=== PATIENT | female | born 1960 | race Caucasian/White ===

== ENCOUNTER 2018-01-04 15:21 | Inpatient (IN) ==
--- NOTE | 2018-01-04 16:13 | ED ---
HPI General Chief Complaint: Shortness of Breath/Dyspnea Stated Complaint: Evac/Sob Time Seen by Provider: 01/04/18 15:31 Source: patient Mode of arrival: EMS Limitations: no limitations History of Present Illness Patient is a 57 year old female with history of hypertension and breast cancer, presents to the ER with c/o of shortness of breath. Patient reports that she has been feeling short of breath for the past 3-4 weeks. Reports that she is getting progressively sob - it is getting to the point where she cannot lay flat in her bed and needs to sit up to be able to breathe. Reports that she does have a heavyness to her chest only when she lies down in bed flat. Reports that over the past few days, she has had increased swelling to her lower extremities b/l. She does have history of PE - she was diagnosed with PE after she had breast reconstruction surgery and was on anticoagulation for only 3 months. Patient with no fever/chills. She did have radiation as well as chemo in 2013 - currently not on any chemo/radiation Related Data Home Medications Medication Instructions Recorded Confirmed anastrozole 1 mg PO DAILY 01/04/18 01/04/18 lisinopril 40 mg PO DAILY 01/04/18 01/04/18 Allergies Allergy/AdvReac Type Severity Reaction Status Date / Time No Known Allergies Allergy Unverified 01/04/18 15:36 Review of Systems ROS: all other systems reviewed are negative [facility] Medical History Medical History Breast cancer (Acute) Hypertension (Acute) Pulmonary embolism (Acute) Surgical History Surgical History H/O mastectomy (Acute) History of removal of Port-a-Cath (Acute) Social History Social History Substance History: No History of Abuse Second Hand Smoke Exposure: No Smoking Status: Never smoker How Often Do You Have a Drink Containing Alcohol: Never Recent Travel in [facility] within the Last 8 Weeks: No Recent Out of Country Travel within the Last 8 Weeks: No Immunization History Tetanus Immunization: <5 Years Hx Influenza Vaccine This Season: No Exam Narrative Exam Narrative: GENERAL: mild distress SKIN: Focused skin assessment warm/dry. HEAD: Atraumatic. Normocephalic. EYES: Pupils equal and round. No scleral icterus. No injection or drainage. ENT: No nasal bleeding or discharge. Mucous membranes pink and moist. NECK: Trachea midline. No JVD. CARDIOVASCULAR: Regular rate and rhythm. No murmur appreciated. RESPIRATORY: No accessory muscle use. Clear to auscultation. Breath sounds equal bilaterally. GASTROINTESTINAL: Abdomen soft, non-tender, nondistended. Hepatic and splenic margins not palpable. MUSCULOSKELETAL: No obvious deformities. No clubbing. No cyanosis. nonpitting edema. NEUROLOGICAL: Awake and alert. No obvious cranial nerve deficits. Motor grossly within normal limits. Normal speech. PSYCHIATRIC: Appropriate mood and affect; insight and judgment normal. Course Initial Documented Vital Signs Temperature 97.6 F 01/04/18 15:32 Pulse Rate 111 H 01/04/18 15:32 Respiratory Rate 18 01/04/18 15:32 Blood Pressure 179/102 H 01/04/18 15:32 Pulse Oximetry 97 01/04/18 15:32 Last Documented Vital Signs Temperature 97.6 F 01/04/18 15:32 Pulse Rate 98 H 01/04/18 18:36 Respiratory Rate 16 01/04/18 18:36 Blood Pressure 169/85 H 01/04/18 18:36 Pulse Oximetry 98 01/04/18 18:36 Sign Out Sign Out Data: Patient Sign Out occurred on 01/04/18 at 19:14. Patient's care was discussed, and care was transferred from Leatha Arambula to Alyse Soliman MD. Sign Out Comment: patient pending cta as well as second set of trop - if cta neg , plan for discharge to home with outpatient follow up with pcp Last updated by Leatha Arambula at 01/04/18 18:54 Post-Handoff Eval: The patient's case was checked out to me by Dr. Arambula. CTA showed evidence of pulmonary edema with bilateral pleural effusions and mild to moderate cardiomegaly with an elevated BNP. No evidence of pulmonary embolism. The patient was given aspirin 324 mg p.o. 1, nitroglycerin 1 inch the chest wall, Lasix [address] Arambula spoke to Dr. Love, the hospitalist regarding this patient's case. [facility] Medical Decision Making MDM Narrative Medical decision making narrative: During the course of the patients emergency department visit, the patients history, examination, and differential diagnosis were reviewed with the patient. The patient was placed on a surveillance monitor with oximetry and frequent blood pressure monitoring. The patient had an IV access obtained and blood work sent for analysis. labs were reviewed xray of chest: with no acute abnormality or significant interval change doppler us of le: no evidence of DVT CTA pending Medical Screen Exam Complete: Yes Emergency Medical Condition: Yes Differential Diagnosis Differential Diagnosis: PE, CHF, DVT, ACS, Arrythmia Medical Records Medical records reviewed: Yes I reviewed the patient's medical records. Lab Data Result diagrams: 01/04/18 16:35 01/04/18 16:35 Lab Results 01/04/18 01/04/18 01/04/18 Range/Units 16:35 16:35 16:35 WBC 9.7 (4.0-11.0) th/mm3 RBC 5.28 (4.00-5.30) mil/mm3 Hgb 16.1 H (11.6-15.3) gm/dL Hct 48.1 H (35.0-46.0) % MCV 91.1 (80.0-100.0) fL MCH 30.6 (27.0-34.0) pg MCHC 33.5 (32.0-36.0) % RDW 17.2 (11.6-17.2) % Plt Count 167 (150-450) th/mm3 MPV 10.3 (7.0-11.0) fL Neut % (Auto) 66.4 (16.0-70.0) % Lymph % (Auto) 25.2 (9.0-44.0) % [place] % (Auto) 6.5 (0.0-8.0) % Eos % (Auto) 1.5 (0.0-4.0) % Baso % (Auto) 0.4 (0.0-2.0) % Neut # (Auto) 6.4 (1.8-7.7) th/mm3 Lymph # (Auto) 2.4 (1.0-4.8) th/mm3 [place] # (Auto) 0.6 (0.0-0.9) th/mm3 Eos # (Auto) 0.1 (0.0-0.4) th/mm3 Baso # (Auto) 0.0 (0.0-0.2) th/mm3 WBC Differential . Differential Comment Auto diff final PT 11.7 H (9.8-11.6) sec INR 1.2 Ratio APTT 23.3 L (24.3-30.1) sec Sodium 142 (136-145) meq/L Potassium 4.6 (3.5-5.1) meq/L Chloride 108 H (98-107) meq/L Carbon Dioxide 23.3 (21.0-32.0) meq/L Anion Gap 11 (5-15) meq/L BUN 16 (7-18) mg/dL Creatinine 0.89 (0.50-1.00) mg/dL Estimated GFR 66 L (>89) mL/min Random Glucose 84 (74-106) mg/dL Calcium 8.6 (8.5-10.1) mg/dL Magnesium 2.3 (1.5-2.5) mg/dL Total Bilirubin 1.0 (0.2-1.0) mg/dL AST 63 H (15-37) U/L ALT 60 H (10-53) U/L Alkaline Phosphatase 112 (45-117) U/L Total Creatine Kinase 120 (26-192) U/L CK-MB (CK-2) 1.8 (0.5-3.6) ng/mL Troponin I Less than 0.02 L (0.02-0.05) ng/mL B-Natriuretic Peptide (0-100) pg/mL Total Protein 6.9 (6.4-8.2) g/dL Albumin 3.9 (3.4-5.0) g/dL 01/04/18 Range/Units 16:35 WBC (4.0-11.0) th/mm3 RBC (4.00-5.30) mil/mm3 Hgb (11.6-15.3) gm/dL Hct (35.0-46.0) % MCV (80.0-100.0) fL MCH (27.0-34.0) pg MCHC (32.0-36.0) % RDW (11.6-17.2) % Plt Count (150-450) th/mm3 MPV (7.0-11.0) fL Neut % (Auto) (16.0-70.0) % Lymph % (Auto) (9.0-44.0) % [place] % (Auto) (0.0-8.0) % Eos % (Auto) (0.0-4.0) % Baso % (Auto) (0.0-2.0) % Neut # (Auto) (1.8-7.7) th/mm3 Lymph # (Auto) (1.0-4.8) th/mm3 [place] # (Auto) (0.0-0.9) th/mm3 Eos # (Auto) (0.0-0.4) th/mm3 Baso # (Auto) (0.0-0.2) th/mm3 WBC Differential Differential Comment PT (9.8-11.6) sec INR Ratio APTT (24.3-30.1) sec Sodium (136-145) meq/L Potassium (3.5-5.1) meq/L Chloride (98-107) meq/L Carbon Dioxide (21.0-32.0) meq/L Anion Gap (5-15) meq/L BUN (7-18) mg/dL Creatinine (0.50-1.00) mg/dL Estimated GFR (>89) mL/min Random Glucose (74-106) mg/dL Calcium (8.5-10.1) mg/dL Magnesium (1.5-2.5) mg/dL Total Bilirubin (0.2-1.0) mg/dL AST (15-37) U/L ALT (10-53) U/L Alkaline Phosphatase (45-117) U/L Total Creatine Kinase (26-192) U/L CK-MB (CK-2) (0.5-3.6) ng/mL Troponin I (0.02-0.05) ng/mL B-Natriuretic Peptide 930 H (0-100) pg/mL Total Protein (6.4-8.2) g/dL Albumin (3.4-5.0) g/dL Imaging Data Radiologist's impression: Chest CTA 01/04/18 15:55 CONCLUSION: 1. No evidence of pulmonary emboli. 2. Bilateral pleural effusions and mild to moderate cardiomegaly. Chest X-Ray 01/04/18 15:55 CONCLUSION: 1. No acute abnormality or significant interval change. Venous Doppler Study 01/04/18 15:56 CONCLUSION: 1. The study is negative for bilateral lower extremity deep venous thrombosis. ECG Data EKG Prior to Arrival: No Attestation: I personally reviewed and interpreted this ECG as follows: Interpretation: EKG at 1534: Sinus tach at 112bpm, qt/qtc: 339/406, nonspecific t wave changes Discharge Plan Discharge Disposition Patient Disposition: 30 Still Patient Discharge Details Diagnosis: Acute dyspnea, New onset of congestive heart failure Physicians Team ED Provider: Alyse Soliman Primary Care Provider: Maryellen Sutton Attending Provider: Conor Love Rxs /Orders / Referrals /Forms Prescriptions: No Action anastrozole 1 mg Tablet 1 mg PO DAILY RF: 0 lisinopril 40 mg Tablet 40 mg PO DAILY RF: 0 Discharge Interventions Interventions: Vital Signs Last Done: 01/04/18 18:36 Status ED Status: Admitted Observation Patient
--- NOTE | 2018-01-04 16:15 | XR ---
EXAM DATE: 01/04/2018 4:10 PM EDT AGE/SEX: 57 years / Female INDICATIONS: Short of breath, tired, cough CLINICAL DATA: This is the patient's initial encounter. Patient reports that signs and symptoms have been present for 3 days and indicates a pain score of 0/10. MEDICAL/SURGICAL HISTORY: . high blood pressure. None. COMPARISON: [facility], XR CHEST PA AND LAT, 03/10/2016. . FINDINGS: No significant new focal pleural or parenchymal opacities. Cardiomediastinal contours are stable give n differences in technique. Redemonstration of surgical clips in the axilla. Osseous structures are i ntact. CONCLUSION: 1. No acute abnormality or significant interval change. Electronically signed by: Campbell Qureshi MD 01/04/2018 4:13 PM EDT
--- NOTE | 2018-01-04 16:50 | US ---
EXAM DATE: 01/04/2018 4:37 PM EDT AGE/SEX: 57 years / Female INDICATIONS: Bilateral leg swelling. CLINICAL DATA: This is the patient's initial encounter. Patient reports that signs and symptoms have been present for 3 days and indicates a pain score of 5/10. MEDICAL/SURGICAL HISTORY: Carcinoma, breast. Hypertension. Pulmonary embolism. Mastectomy, b ilateral. Removal of port-a-cath. COMPARISON: No prior exams available for comparison. TECHNIQUE: Venous ultrasound of both lower extremities was performed from the inguinal ligament to t he proximal calf. Real-time, color Doppler and spectral tracing, compression and augmentation techni ques were used. FINDINGS: Right Leg: Normal compression of the deep venous system from the inguinal region to the proximal donal f. No echogenic clot is seen. Normal response of the venous system to augmentation and respiration. Left Leg: Normal compression of the deep venous system from the inguinal region to the proximal calf . No echogenic clot is seen. Normal response of the venous system to augmentation and respiration. Other: None. CONCLUSION: 1. The study is negative for bilateral lower extremity deep venous thrombosis. Electronically signed by: Campbell Qureshi MD 01/04/2018 4:48 PM EDT
[2018-01-04 17:07] LABS: Baso % (Auto) 0.4 % (0.0-2.0); Eos # (Auto) 0.1 th/mm3 (0.0-0.4); Eos % (Auto) 1.5 % (0.0-4.0); Hematocrit 48.1 % (35.0-46.0); Hemoglobin 16.1 gm/dL (11.6-15.3); Lymph # (Auto) 2.4 th/mm3 (1.0-4.8); Lymph % (Auto) 25.2 % (9.0-44.0); Mean Corpuscular HGB Conc 33.5 % (32.0-36.0); Mean Corpuscular Hemoglobin 30.6 pg (27.0-34.0); Mean Corpuscular Volume 91.1 fL (80.0-100.0); Mean Platelet Volume 10.3 fL (7.0-11.0); Mono # (Auto) 0.6 th/mm3 (0.0-0.9); Mono % (Auto) 6.5 % (0.0-8.0); Neut # (Auto) 6.4 th/mm3 (1.8-7.7); Neut % (Auto) 66.4 % (16.0-70.0); Platelet Count 167 th/mm3 (150-450); Red Blood Count 5.28 mil/mm3 (4.00-5.30); Red Cell Distribution Width 17.2 % (11.6-17.2); White Blood Count 9.7 th/mm3 (4.0-11.0)
[2018-01-04 17:12] LABS: Activated Partial Thrombo Time 23.3 sec (24.3-30.1); INR 1.2 Ratio; Prothrombin Time 11.7 sec (9.8-11.6)
[2018-01-04 17:37] LABS: Alanine Aminotransferase 60 U/L (10-53); Albumin 3.9 g/dL (3.4-5.0); Alkaline Phosphatase 112 U/L (45-117); Anion Gap 11 meq/L (5-15); Aspartate Aminotransferase 63 U/L (15-37); Blood Urea Nitrogen 16 mg/dL (7-18); Calcium 8.6 mg/dL (8.5-10.1); Carbon Dioxide 23.3 meq/L (21.0-32.0); Chloride 108 meq/L (98-107); Creatine Kinase 120 U/L (26-192); Glomerular Filtration Rate 66 mL/min (>89); Glucose,Random 84 mg/dL (74-106); Magnesium 2.3 mg/dL (1.5-2.5); Sodium 142 meq/L (136-145); Total Protein 6.9 g/dL (6.4-8.2)
[2018-01-04 17:40] LABS: Potassium 4.6 meq/L (3.5-5.1)
[2018-01-04 17:52] LABS: Creatine Kinase MB 1.8 ng/mL (0.5-3.6)
--- NOTE | 2018-01-04 19:05 | CT ---
EXAM DATE: 01/04/2018 7:00 PM EDT AGE/SEX: 57 years / Female INDICATIONS: Short of breath for four days and leg swelling CLINICAL DATA: This is the patient's initial encounter. Patient reports that signs and symptoms have been present for 1 day and indicates a pain score of 0/10. MEDICAL/SURGICAL HISTORY: Carcinoma, breast. Hypertension. . mastectomy RADIATION DOSE: 23.20 CTDI (mGy) COMPARISON: [facility] [place], CHEST 1V SINGLE AP, 01/04/2018. . TECHNIQUE: Volumetric scanning was performed using a multi-row detector CT scanner during bolus infu tito of 72 ml Omnipaque 350 (iohexol) nonionic water-soluble contrast as a single exam dose. The brigette a was post processed with a variety of visualization algorithms including full volume maximum intensi ty projection and sliding thin slab reformation. Using automated exposure control and adjustment of t he mA and/or kV according to patient size, radiation dose was kept as low as reasonably achievable to obtain optimal diagnostic quality images. DICOM format image data is available electronically for r eview and comparison. FINDINGS: Pulmonary Arteries: No filling defects are seen in the pulmonary arteries out to the subsegmental ve ssels. The left and right pulmonary arteries are normal in diameter. Lung: No infiltrates seen. Effusion: There are bilateral pleural effusions right greater than left. Mediastinum: No evidence of mediastinal or hilar adenopathy. There is mild to moderate cardiomegaly. Atherosclerotic changes are present in the aorta. Other: The axilla is unremarkable. CONCLUSION: 1. No evidence of pulmonary emboli. 2. Bilateral pleural effusions and mild to moderate cardiomegaly. Electronically signed by: Zander Mena MD 01/04/2018 7:04 PM EDT
[2018-01-04] MEDS ORDERED: Temazepam 15 MG Capsule PO PRN (19:54)
--- NOTE | 2018-01-04 20:29 | P.HPIM ---
History of Present Illness Primary Care Physician: Maryellen Sutton MD Chief Complaint: dyspnea History of Present Illness: 57 y/o female with a history of breast cancer s/p chemo and radiation, and HTN presented to the ED with complaints of dyspnea for the past 3-4 weeks. She complains of orthopnea, and dyspnea with exertion, and states she is unable to climb a flight of stairs. She states it has been getting worse and the past 3 days she has noticed bilateral pedal edema. She does have a non productive cough and chest pressure when she lays flat. Denies any fever, chills or dizziness. Last chemo/radiation was in 2013. Review of Systems All other systems reviewed negative except as stated in HPI PMFSH - History History Provided By: Patient - Medical History Medical History: Medical History (Last Updated 01/04/18 @ 16:20 by Leatha Arambula) Breast cancer Hypertension Pulmonary embolism - Surgical History Surgical History: Surgical History (Last Reviewed 01/04/18 @ 16:20 by Leatha Arambula) H/O mastectomy History of removal of Port-a-Cath - Family History Family History: Family History (Last Updated 01/04/18 @ 20:49 by SAMIA Rojas) Mother Breast cancer HTN (hypertension) - Tobacco History Second Hand Smoke Exposure: No Smoking Status: Never smoker - Alcohol History How Often Do You Have a Drink Containing Alcohol: Never - Substance Use History Substance History: No History of Abuse - Travel History Recent Travel in the [place] Within the Last 8 Weeks: No Recent Travel Out of the Country Within the Last 8 Weeks: No - Immunization History Tetanus Immunization: <5 Years Hx Influenza Vaccine This Season: No Medications and Allergies Active Medications: Active Medications Al Hydroxide/Mg Hydroxide (Milk Of Ilana Coffman) 30 ml PO Q12H PRN PRN Reason: Mild Constipation Anastrozole (Arimidex) 1 mg PO DAILY DENIZ Furosemide (Lasix Inj) 40 mg IV.PUSH BID@0900,1800 DENIZ Heparin Sodium (Porcine) (Heparin Inj) 5,000 units SQ Q12H DENIZ Lisinopril (Prinivil) 40 mg PO DAILY DENIZ Ondansetron HCl (Zofran Inj) 4 mg IV.PUSH Q6H PRN PRN Reason: NAUSEA OR VOMITING Sodium Chloride (Ns Flush) 2 ml IV.FLUSH PRN PRN PRN Reason: FLUSH AFTER USING IV ACCESS Temazepam (Restoril) 15 mg PO HS PRN PRN Reason: INSOMNIA Allergies Allergy/AdvReac Type Severity Reaction Status Date / Time No Known Allergies Allergy Unverified 01/04/18 15:36 Home Medications Medication Instructions Recorded Confirmed Type anastrozole 1 mg PO DAILY 01/04/18 01/04/18 History lisinopril 40 mg PO DAILY 01/04/18 01/04/18 History Exam Vital signs: Vital Signs 01/04/18 15:32 01/04/18 15:37 01/04/18 18:36 Temperature 97.6 F Pulse Rate 111 H 103 H 98 H Respiratory Rate 18 19 16 Blood Pressure 179/102 H 179/102 H 169/85 H Pulse Oximetry 97 95 98 01/04/18 19:47 Temperature Pulse Rate Respiratory Rate Blood Pressure Pulse Oximetry 96 Intake & Output 01/04/18 01/04/18 01/05/18 06:59 18:59 06:59 Weight 90.718 kg Narrative: GENERAL: This is a well-nourished, well-developed patient, who appears short of breath CARDIOVASCULAR: Regular rate and rhythm with faint gallop. RESPIRATORY: Diminished breath sounds, no crackles or wheezes GASTROINTESTINAL: Abdomen soft, non-tender, nondistended. Normal active bowel sounds MUSCULOSKELETAL: Extremities without clubbing, cyanosis. +1 pedal edema bilateral lower extremities NEURO: Alert & Oriented x4 to person, place, time, situation. Moves all ext x4 Results - Labs CBC & Chem 7: 01/04/18 16:35 01/04/18 16:35 Labs: Short CBC 01/04/18 Range/Units 16:35 WBC 9.7 (4.0-11.0) th/mm3 Hgb 16.1 H (11.6-15.3) gm/dL Hct 48.1 H (35.0-46.0) % Plt Count 167 (150-450) th/mm3 BMP 01/04/18 16:35 Sodium 142 Potassium 4.6 Chloride 108 H Carbon Dioxide 23.3 BUN 16 Creatinine 0.89 Calcium 8.6 Cardiac Enzymes 01/04/18 01/04/18 Range/Units 16:35 18:50 Total Creatine Kinase 120 (26-192) U/L CK-MB (CK-2) 1.8 (0.5-3.6) ng/mL Troponin I Less than 0.02 L 0.04 (0.02-0.05) ng/mL Liver Function 01/04/18 Range/Units 16:35 Total Bilirubin 1.0 (0.2-1.0) mg/dL AST 63 H (15-37) U/L ALT 60 H (10-53) U/L Alkaline Phosphatase 112 (45-117) U/L Albumin 3.9 (3.4-5.0) g/dL - Imaging Impressions Chest CTA 01/04/18 15:55 CONCLUSION: 1. No evidence of pulmonary emboli. 2. Bilateral pleural effusions and mild to moderate cardiomegaly. Chest X-Ray 01/04/18 15:55 CONCLUSION: 1. No acute abnormality or significant interval change. Venous Doppler Study 01/04/18 15:56 CONCLUSION: 1. The study is negative for bilateral lower extremity deep venous thrombosis. Caprini VTE Risk Assessment Caprini VTE Risk Assessment: Moderate/High Risk (score >= 2) Caprini Risk Assessment Model: Point Value = 1 Point Value = 2 Point Value = 3 Point Value = 5 Age 41-60 Minor surgery BMI > 25 kg/m2 Swollen legs Varicose veins or History of unexplained or recurrent spontaneous Oral contraceptives or hormone replacement Sepsis (< 1 month) Serious lung disease, including pneumonia (< 1 month) Abnormal pulmonary function Acute myocardial infarction Congestive heart failure (< 1 month) History of inflammatory bowel disease Medical patient at bed rest Age 61-74 Arthroscopic surgery Major open surgery (> 45 min) Laparoscopic surgery (> 45 min) Malignancy Confined to bed (> 72 hours) Immobilizing plaster cast Central venous access Age >= 75 History of VTE Family history of VTE Factor V Leiden Prothrombin [id number] Lupus anticoagulant Anticardiolipin antibodies Elevated serum homocysteine Heparin-induced thrombocytopenia Other congenital or acquired thrombophilia Stroke (< 1 month) Elective arthroplasty Hip, pelvis, or leg fracture Acute spinal cord injury (< 1 month) Prophylaxis Regimen: Total Risk Factor Score Risk Level Prophylaxis Regimen 0-1 Low Early ambulation 2 Moderate Order ONE of the following: *Sequential Compression Device (SCD) *Heparin 5000 units SQ BID 3-4 Higher Order ONE of the following medications: *Heparin 5000 units SQ TID *Enoxaparin/Lovenox 40 mg SQ daily (WT < 150 kg, CrCl > 30 mL/min) *Enoxaparin/Lovenox 30 mg SQ daily (WT < 150 kg, CrCl > 10-29 mL/min) *Enoxaparin/Lovenox 30 mg SQ BID (WT < 150 kg, CrCl > 30 mL/min) AND/OR *Sequential Compression Device (SCD) 5 or more Highest Order ONE of the following medications: *Heparin 5000 units SQ TID (Preferred with Epidurals) *Enoxaparin/Lovenox 40 mg SQ daily (WT < 150 kg, CrCl > 30 mL/min) *Enoxaparin/Lovenox 30 mg SQ daily (WT < 150 kg, CrCl > 10-29 mL/min) *Enoxaparin/Lovenox 30 mg SQ BID (WT < 150 kg, CrCl > 30 mL/min) AND *Sequential Compression Device (SCD) Assessment and Plan - Plan 57 y/o female with a history of breast cancer s/p chemo and radiation, and HTN presented to the ED with complaints of dyspnea for the past 3-4 weeks. New onset CHF, patient with orthopnea and pedal edema Chest CT reviewed and shows bilateral pleural effusions with mild cardiomegaly BNP 930 -Lasix IV x 1 given in ED, Cont Lasix IV BID -2d echo ordered -Consult to cardiology for evaluation -Fluid restriction Chest pressure, likely due to CHF, r/o ACS Troponin .02-->.04 EKG reviewed and shows sinus tachycardia with no ST elevations -Trend troponin one more set and ekg -Nitropaste and asa ordered in ED HTN, chronic -Resume home medications lisinopril, monitor vitals, adjust accordingly Breast cancer, chronic, in remission -Resume home anastrozole PO DVT prophylaxis: Heparin Discussed Condition With: Patient and RN
--- NOTE | 2018-01-04 20:59 | ECG ---
Date Performed: 01/04/2018 Time Performed: 15:34:14 PTAGE: 57 years EKG: SINUS TACHYCARDIA POSSIBLE LEFT ATRIAL ENLARGEMENT NONSPECIFIC T-WAVE ABNORMALITY ABNORMAL RHYTHM ECG NO PREVIOUS TRACING DOCTOR: Christopher Barrera Interpretating Date/Time 01/04/2018 20:57:25
[2018-01-04] MEDS: Heparin - SQ 10,000 UNITS/ML Vial SQ SCH (21:29)
--- NOTE | 2018-01-05 08:41 | ECG ---
Date Performed: 01/05/2018 Time Performed: 01:14:56 PTAGE: 57 years EKG: Sinus rhythm POSSIBLE LEFT ATRIAL ENLARGEMENT T-WAVE ABNORMALITY, CONSIDER INFERIOR AND LATERAL ISCHEMIA ABNORMAL ECG PREVIOUS TRACING : 01/04/2018 15.34 Compared to previous tracing, inferior and lateral T wave c hanges are now more pronounced. DOCTOR: Christopher Barrera Interpretating Date/Time 01/05/2018 08:40:24
[2018-01-05] MEDS: Heparin - SQ 10,000 UNITS/ML Vial SQ SCH ×2 (09:07→20:09)
[2018-01-05] MEDS: Anastrozole 1 MG Tablet PO SCH (09:07)
[2018-01-05] MEDS: Lisinopril 20 MG Tablet PO SCH (09:08)
--- NOTE | 2018-01-05 15:18 | P.PNIM ---
Subjective Interval history: 57 y/o female with a history of breast cancer s/p chemo and radiation, and HTN presented to the ED with complaints of dyspnea for the past 3-4 weeks. She complains of orthopnea, and dyspnea with exertion, and states she is unable to climb a flight of stairs. She states it has been getting worse and the past 3 days she has noticed bilateral pedal edema. She does have a non productive cough and chest pressure when she lays flat. Denies any fever, chills or dizziness. Last chemo/radiation was in 2013. 01-05 AWAIT ECHO HAS DIURESED WELL LESS SOB LESS SWELLING IN BL LE- ALMOST NORMAL UNOFFICIAL EF NOT SO GOOD DW CARDIO AM LABS HOPEFULLY DC TO HOME TOMORROW Physical Exam Vital signs: Vital Signs 01/04/18 15:32 01/04/18 15:37 01/04/18 18:36 Temperature 97.6 F Pulse Rate 111 H 103 H 98 H Respiratory Rate 18 19 16 Blood Pressure 179/102 H 179/102 H 169/85 H Pulse Oximetry 97 95 98 01/04/18 19:47 01/04/18 20:00 01/04/18 22:00 Temperature 97.8 F Pulse Rate 91 H 90 Respiratory Rate 20 Blood Pressure 119/63 Pulse Oximetry 96 92 L 01/04/18 23:54 01/05/18 00:00 01/05/18 04:00 Temperature 97.4 F L 98.1 F Pulse Rate 80 80 86 Respiratory Rate 19 18 Blood Pressure 100/61 117/77 Pulse Oximetry 95 99 01/05/18 07:26 01/05/18 08:00 01/05/18 12:00 Temperature 97.8 F 98.1 F Pulse Rate 87 103 H 93 H Respiratory Rate 18 18 Blood Pressure 147/86 H 142/75 H Pulse Oximetry 96 96 01/05/18 12:13 Temperature Pulse Rate 85 Respiratory Rate Blood Pressure Pulse Oximetry Intake & Output 01/04/18 01/05/18 01/05/18 18:59 06:59 18:59 Weight 90.718 kg 81.6 kg Other: # Voids 2 Weight On Admission 81.6 kg Narrative: GENERAL: SKIN: Warm and dry. HEAD: Atraumatic. Normocephalic. EYES: Pupils equal and round. No scleral icterus. No injection or drainage. ENT: No nasal bleeding or discharge. Mucous membranes pink and moist. NECK: Trachea midline. No JVD. CARDIOVASCULAR: Regular rate and rhythm. S1,S2 AND NO S3 OR S4 RESPIRATORY: No accessory muscle use. Clear to auscultation. Breath sounds equal bilaterally. GASTROINTESTINAL: Abdomen soft, non-tender, nondistended. Hepatic and splenic margins not palpable. MUSCULOSKELETAL: Extremities without clubbing, cyanosis, or edema. No obvious deformities. NEUROLOGICAL: Awake and alert. No obvious cranial nerve deficits. Motor grossly within normal limits. Five out of 5 muscle strength in the arms and legs. Normal speech. PSYCHIATRIC: Appropriate mood and affect; insight and judgment normal. Results - Labs CBC & Chem 7: 01/04/18 16:35 01/04/18 16:35 Laboratory Results - last 24 hr 01/04/18 01/04/18 01/04/18 16:35 16:35 16:35 WBC 9.7 RBC 5.28 Hgb 16.1 H Hct 48.1 H MCV 91.1 MCH 30.6 MCHC 33.5 RDW 17.2 Plt Count 167 MPV 10.3 Neut % (Auto) 66.4 Lymph % (Auto) 25.2 [place] % (Auto) 6.5 Eos % (Auto) 1.5 Baso % (Auto) 0.4 Neut # (Auto) 6.4 Lymph # (Auto) 2.4 [place] # (Auto) 0.6 Eos # (Auto) 0.1 Baso # (Auto) 0.0 WBC Differential . Differential Comment Auto diff final PT 11.7 H INR 1.2 APTT 23.3 L Sodium 142 Potassium 4.6 Chloride 108 H Carbon Dioxide 23.3 Anion Gap 11 BUN 16 Creatinine 0.89 Estimated GFR 66 L Random Glucose 84 Calcium 8.6 Magnesium 2.3 Total Bilirubin 1.0 AST 63 H ALT 60 H Alkaline Phosphatase 112 Total Creatine Kinase 120 CK-MB (CK-2) 1.8 Troponin I Less than 0.02 L B-Natriuretic Peptide Total Protein 6.9 Albumin 3.9 01/04/18 01/04/18 01/05/18 16:35 18:50 01:00 WBC RBC Hgb Hct MCV MCH MCHC RDW Plt Count MPV Neut % (Auto) Lymph % (Auto) [place] % (Auto) Eos % (Auto) Baso % (Auto) Neut # (Auto) Lymph # (Auto) [place] # (Auto) Eos # (Auto) Baso # (Auto) WBC Differential Differential Comment PT INR APTT Sodium Potassium Chloride Carbon Dioxide Anion Gap BUN Creatinine Estimated GFR Random Glucose Calcium Magnesium Total Bilirubin AST ALT Alkaline Phosphatase Total Creatine Kinase CK-MB (CK-2) Troponin I 0.04 0.04 B-Natriuretic Peptide 930 H Total Protein Albumin - Imaging Impressions Chest CTA 01/04/18 15:55 CONCLUSION: 1. No evidence of pulmonary emboli. 2. Bilateral pleural effusions and mild to moderate cardiomegaly. Chest X-Ray 01/04/18 15:55 CONCLUSION: 1. No acute abnormality or significant interval change. Venous Doppler Study 01/04/18 15:56 CONCLUSION: 1. The study is negative for bilateral lower extremity deep venous thrombosis. Assessment and Plan - Plan 57 y/o female with a history of breast cancer s/p chemo and radiation, and HTN presented to the ED with complaints of dyspnea for the past 3-4 weeks. New onset CHF, patient with orthopnea and pedal edema Chest CT reviewed and shows bilateral pleural effusions with mild cardiomegaly BNP 930 -Lasix IV x 1 given in ED, Cont Lasix IV BID -2d echo ordered -Consult to cardiology for evaluation -Fluid restriction AM LABS ECHO STILL PENDING Chest pressure, likely due to CHF, r/o ACS Troponin .02-->.04 EKG reviewed and shows sinus tachycardia with no ST elevations -Trend troponin one more set and ekg -Nitropaste and asa ordered in ED HTN, chronic -Resume home medications lisinopril, monitor vitals, adjust accordingly Breast cancer, chronic, in remission -Resume home anastrozole PO DVT prophylaxis: Heparin Code Status: FULL CODE Discussed Condition With: RN AND PT AND CM Discharge Planning: PENDING ECHO
--- NOTE | 2018-01-05 18:17 | ECHRPT ---
Indication: cardiomyopathy CONCLUSIONS The left ventricular systolic function is severely reduced with an estimated ejection fraction of 30 %. Normal left ventricular size. Wall thickness is normal. No regional wall motion abnormalities are present. [id number] mitral valve regurgitation. There is moderate to severe tricuspid valve regurgitation. The estimated pulmonary arterial pressure is 64 mmHg. BP: / HR: Rhythm: Sinus MEASUREMENTS (Male / Female) Normal Values Technical Quality:Fair 2D ECHO LV Diastolic Diameter PLAX 5.6 cm 4.2 - 5.9 / 3.9 - 5.3 cm LV Systolic Diameter PLAX 4.9 cm IVS Diastolic Thickness 1.1 cm 0.6 - 1.0 / 0.6 - 0.9 cm LVPW Diastolic Thickness 1.1 cm 0.6 - 1.0 / 0.6 - 0.9 cm LV Relative Wall Thickness 0.4 RV Internal Dim ED PLAX 3.8 cm LVOT Diameter 1.6 cm LA Systolic Diameter LX 3.9 cm 3.0 - 4.0 / 2.7 - 3.8 cm LV Ejection Fraction MOD 4C 31.3 % LV Ejection Fraction 4C AL 34.1 % M-MODE Aortic Root Diameter MM 2.1 cm LA Systolic Diameter MM 3.9 cm LA Ao Ratio MM 1.9 AV Cusp Separation MM 1.7 cm DOPPLER AV Peak Velocity 74.8 cm/s AV Peak Gradient 2.2 mmHg AI Peak Velocity 118.0 cm/s AI Peak Gradient 5.6 mmHg AI Pressure Half Time 36.0 ms LVOT Peak Velocity 62.7 cm/s LVOT Peak Gradient 1.6 mmHg AV Area Cont Eq pk 1.7 cm LV E' Lateral Velocity 3.8 cm/s LV E' Septal Velocity 2.6 cm/s TV Peak Velocity 269.0 cm/s TR Peak Velocity 366.0 cm/s TR Peak Gradient 53.6 mmHg Right Atrial Pressure 10.0 mmHg Pulmonary Artery Systolic Pressu 63.6 mmHg Right Ventricular Systolic Press 63.6 mmHg PV Peak Velocity 80.1 cm/s PV Peak Gradient 2.6 mmHg FINDINGS LEFT VENTRICLE The left ventricular systolic function is severely reduced with an estimated ejection fraction of 30 %. Normal left ventricular size. Wall thickness is normal. No regional wall motion abnormalities are present. RIGHT VENTRICLE Normal right ventricular size and systolic function. LEFT ATRIUM The left atrial size is normal. RIGHT ATRIUM The right atrial size is normal. ATRIAL SEPTUM Normal atrial septal thickness without atrial level shunting by limited color doppler interrogation. AORTA The aortic root and proximal ascending aorta are normal in size on limited imaging. MITRAL VALVE Structurally normal mitral valve. [id number] mitral valve regurgitation. AORTIC VALVE Trileaflet aortic valve. No aortic valve stenosis or regurgitation. TRICUSPID VALVE Structurally normal tricuspid valve. There is moderate to severe tricuspid valve regurgitation. The estimated pulmonary arterial pressure is 63.6 mmHg. PULMONARY VALVE Trivial pulmonary valve regurgitation. VESSELS The inferior vena cava is normal in size. PERICARDIUM No pericardial effusion. Cari Drake MD, FACC (Electronically Signed) Final Date:05 January 2018 18:16
--- NOTE | 2018-01-06 01:19 | MB ---
cc: Ambrose Rivera DO DATE: 01/05/2018 REASON FOR CONSULTATION: New onset cardiomyopathy. HISTORY OF PRESENT ILLNESS: Lisa Carbajal is a pleasant 57-year-old female who presented to [facility] Emergency Room due to shortness of breath for the past 3-4 weeks. She has noticed some orthopnea and dyspnea, especially with exertion. If she climbs a flight of stairs, she gets significantly short of breath. Does not really notice much chest pain. She has also had 3-4 days of increased bilateral pedal edema. She has had a nonproductive cough and some chest pressure when she lies flat. She previously underwent chemo and radiation in 2013, for breast cancer and is currently on Arimidex. She states that when she was undergoing chemo in 2013, she had some tests, but is unsure if she had an echocardiogram. She underwent an echocardiogram today and was found to have an ejection fraction of 30% with moderate to severe mitral regurgitation and [id number] tricuspid regurgitation. She is currently hemodynamically stable without chest pain, shortness of breath, or palpitations. PAST MEDICAL HISTORY: 1. Breast cancer. 2. Hypertension. 3. Pulmonary embolism. PAST SURGICAL HISTORY: 1. Mastectomy. 2. Removal of Port-A-Cath. ALLERGIES: NO KNOWN DRUG ALLERGIES. MEDICATIONS: 1. Arimidex 1 mg daily. 2. Lisinopril 40 mg daily. FAMILY HISTORY: Denies premature coronary artery disease or sudden cardiac within the family. SOCIAL HISTORY: Denies tobacco, alcohol or drug abuse. REVIEW OF SYSTEMS: Fourteen systems were reviewed including osteopathic. Pertinent positives and negatives above, otherwise negative. PHYSICAL EXAMINATION: VITAL SIGNS: Temperature 98.1, heart rate 93, blood pressure 142/75, respirations 18, pulse oximetry 96% on room air. GENERAL: The patient appears well, in no acute distress. Alert, awake, and oriented x3. HEENT: Extraocular muscles intact. Mucous membranes moist. NECK: Supple. No JVD at 45 degrees. No carotid bruits heard bilaterally. Carotid upstroke is brisk in nature. HEART: Regular rate and rhythm. Positive first and second heart sounds with no noted murmurs, gallops or rubs. LUNGS: Have decreased breath sounds bilaterally, but no overt wheezes, rales or rhonchi. ABDOMEN: Soft, nontender, nondistended. No organomegaly noted. EXTREMITIES: Show no clubbing, cyanosis or edema. Femoral and distal pulses intact bilaterally. NEUROLOGIC: No focal deficits. SKIN: Warm, dry and intact. OSTEOPATHIC: Mild lordosis, no kyphoscoliosis or paraspinal tender points. LABORATORY DATA: Hemoglobin 16.1, hematocrit 48.1, platelets 167. Potassium 4.6, BUN 16, creatinine 0.89. Troponin negative x3. BNP 930. Electrocardiogram (01/05/2018 at 01:14): Sinus rhythm, possible left atrial enlargement, ST-T wave changes inferolaterally, possibly due to ischemia. IMPRESSION: 1. Acute decompensated systolic heart failure. 2. New cardiomyopathy. 3. History of breast cancer with radiation and chemotherapy, currently on Arimidex. 4. Hypertension. RECOMMENDATIONS: 1. Ms. Carbajal appears to have a new onset cardiomyopathy with acute decompensated heart failure. She has since been diuresed and is better compensated at this time. 2. Because of this, she will need to be ruled out for an ischemic cardiomyopathy. I discussed consideration of stress testing versus cardiac catheterization and overall feels that she should undergo a right and left heart catheterization. Risks, benefits and alternatives have been explained to her and she consented as such. 3. She is currently on Arimidex for her breast cancer. It is found to have ischemic heart disease. This will need to be discussed with her oncologist as this is a relative contraindication for Arimidex. 4. She will be started on heart failure medications including beta justin therapy and JESSICA inhibitor therapy. 5. Upon discharge, she will followup in the office with me for further considerations of repeat echocardiogram to evaluate response to medications. Thank you for allowing me to see Lisa Carbajal. For any question, please do not hesitate to call. DO ERNESTINE NavarreteP/chana , 11:29 PM , 11:40 PM
[2018-01-06 01:34] LABS: Calcium 7.2 mg/dL (8.5-10.1); Carbon Dioxide 27.6 meq/L (21.0-32.0); Magnesium 1.9 mg/dL (1.5-2.5)
[2018-01-06 01:41] LABS: Potassium 3.5 meq/L (3.5-5.1)
[2018-01-06 02:16] LABS: Total Protein 5.6 g/dL (6.4-8.2)
[2018-01-06 07:27] LABS: Baso % (Auto) 0.5 % (0.0-2.0); Eos # (Auto) 0.1 th/mm3 (0.0-0.4); Hemoglobin 15.5 gm/dL (11.6-15.3); Lymph # (Auto) 2.3 th/mm3 (1.0-4.8); Mean Corpuscular Hemoglobin 30.1 pg (27.0-34.0); Mean Corpuscular Volume 91.1 fL (80.0-100.0); Mono # (Auto) 0.6 th/mm3 (0.0-0.9); Mono % (Auto) 8.3 % (0.0-8.0); Neut % (Auto) 57.2 % (16.0-70.0); Platelet Count 145 th/mm3 (150-450); Red Blood Count 5.16 mil/mm3 (4.00-5.30); Red Cell Distribution Width 16.6 % (11.6-17.2)
[2018-01-06 07:58] LABS: Magnesium 2.2 mg/dL (1.5-2.5); Phosphorus 4.6 mg/dL (2.5-4.9)
[2018-01-06 08:08] LABS: Free T4 (Free Thyroxine) 1.15 ng/dL (0.76-1.46); Thyroid Stimulating Hormone 5.65 uIU/mL (0.358-3.740)
[2018-01-06] MEDS: Heparin - SQ 10,000 UNITS/ML Vial SQ SCH (09:38)
[2018-01-06] MEDS: Lisinopril 20 MG Tablet PO SCH (09:40)
[2018-01-06] MEDS: Anastrozole 1 MG Tablet PO SCH (09:40)
[2018-01-06] MEDS ORDERED: Iohexol 350 MG/ML 100 ML Vial (for Cath Lab) IVCONTRAST ONE (09:53)
[2018-01-06] MEDS ORDERED: Heparin/NS PF Inj 1,000 ML ONE (10:02)
[2018-01-06] MEDS ORDERED: Heparin 10,000 UNITS/10 ML Vial (for IV use) ONE (10:03)
[2018-01-06] MEDS ORDERED: fentaNYL Citrate Inj 100 MCG/2 ML Ampul ONE (10:03)
--- NOTE | 2018-01-06 11:54 | CATHPROC ---
Branded Reality HIS Report Study Information Study Number Admission Scheduled Start Study Start [id number] Jan 04 2018 7:30PM 01/06/2018 Jan 06 2018 10:01AM [place] Service Cardiac Pacer/ICD Admit Source Facility Department Emergency department [facility] - [facility] [employer] Physician and Clinical Staff Initial Ambrose Jarrett Parachute Marker Leatha Nuñez RN Recorder Christel Pat,RT(R) Scrub Student, COMPUTATIONAL CHEMIST/RT(R) Scrub HostChico yoo,RT(R) Procedures Performed Procedure Location (Site) Vessel Name Coronary Angiograms LCA Left Coronary Coronary Angiograms RCA Right Coronary IVUS Lft Main Left Coronary Wire insertion Radial (right) Radial Art. Equipment Time Top Spotter Description Size Mfg Part Number Used/Scraped WIRE, BALANCE MIDDLEWEIGHT [id number] 10:58 [employer] 190CM Used 190CM *[id number] CATHETER, FR5 SWAN RADHA 10:36 ZeePearl FR 5 [id number] *[id number] Used MONITOR TRANSDUCER, TRUWAVE [id number] 10:04 LAMB TUCKER * Used W/STOCKCOCK *[id number] 10:59 PowerPlan CATHETER, OPTICROSS IMAGING [id number] Used [id number] *[id number] [id number] *[id number] 534-521T *[id number] 10:04 Saranas BLANKET,WARM AIR CCL * Used *[id number] 10:04 Saranas PACK, CCL CUSTOM * Used *[id number] 10:04 Saranas SUPPORT, ARTERIAL ADULT [id number] *[id number] Used [id number] 10:57 MEDTRONIC/AVE EBU 3.5 Z2 GUIDE CATHETER FR 6 Used *[id number] BAND, RADIAL COMPRESSION TR [id number] 10:45 Sophiris [employer] MEDICAL 24CM Used SHORT 24 *[id number] 10:04 Keraderm WIRE, EXCHANGE 260CM 3MMJ 260CM Used *[id number] PROBE COVER, STERILE [id number] 10:27 [facility] MEDICAL * Used ULTRASOUND W/ GEL *[id number] 10:04 NAMIC MANIFOLD, 4 PORT * Used *[id number] 10:04 NYCOMED OMNIPAQUE, 350 MG, 150ML 150ML [id number] Used SHEATH, FR6 TRANSRADIAL [id number] 10:04 Ensighten MEDICAL FR 6 Used SLENDER 10CM *[id number] SHEATH, FR6 TRANSRADIAL 80-1060 10:28 TERUMMusement MEDICAL FR 6 Used SLENDER 10CM *[id number] History: Current Medications Medication Dosage/Unit Route Frequency Last Date/Time Taken LISINOPRIL LASIX History: Allergies Allergy Reaction No Known Allergies History: Risk Factors Family History of Hypertension Dyslipidemia Previous AR Previous Heart Failure Premature CAD Yes No No No No Prior Valve Prior PCI Prior CABG Surgery No No No Cerebrovascular Peripheral Artery Chronic Lung On Dialysis Diabetes Disease Disease Disease No No No No No History: Stress Tests Stress or Imaging Studies Performed No History: Other Current Smoker No Labs Hgb (g/dl) Hct (%) WBC (l/cumm) Platelets (thousands) 11.60-17.00 35.00-51.00 4.00-11.00 150.00-450.00 15.5 47 7 145 Glucose (mg/dl) BUN (mg/dl) Creatinine (mg/dl) BUN:Creatinine (1:x) 74.00-106.00 7.00-18.00 0.50-1.30 10.00-20.00 78 19 0.9 21.1 Na (meq/l) K (meq/l) 136.00-145.00 3.50-5.10 144 3.5 INR (PTT:PT) 0.90-1.10 1.2 Troponin I (ng/ml) CPK (u/l) CPK-MB (ng/ML) 0.02-0.05 26.00-308.00 0.50-3.60 0.04 128 1.8 Medication Medication Total Dose (Bolus/Oral) Medication Total Dosage/Unit 1% XYLOCAINE 5 mL FENTANYL 75 mcg HEPARIN 4100 units OXYGEN 2 l/min RADIAL COCKTAIL 5 mL (Bolus) VERSED 0.5 mg Medications (Bolus/Oral) Medication Time Given Dosage/Unit Administered By Reason FENTANYL 01/06/2018 10:26:24 AM 50 mcg Leatha Nuñez 50 mcg FENTANYL given in lab by Leatha Nuñez, RN in Right Arm via Peripheral IV. Ordered by Ambrose Fuller 1% XYLOCAINE 01/06/2018 10:29:09 AM 5 mL Ambrose Rivera 5 mL 1% XYLOCAINE given in lab by Ambrose Rivera in Right Radial via Subcutaneous. RADIAL COCKTAIL 01/06/2018 10:34:53 AM 5 mL (Bolus) Ambrose Rivera 5 mL (Bolus) RADIAL COCKTAIL given in lab by Ambrose Rivera in Right Radial via Radial. Using [S olution Name]. Reason: Ntg 200mcg Verapamil 2.5mg Heparin 3300U. OXYGEN 01/06/2018 10:51:49 AM 2 l/min Leatha Nuñez 2 l/min OXYGEN given in lab by Leatha Nuñez RN via Nasal. Ordered by Ambrose Rivera HEPARIN 01/06/2018 11:00:03 AM 4100 units Leatha Nuñez 4100 units HEPARIN given in lab by Leatha Nuñez RN in Right Arm via Peripheral IV. Ordered by Pet Ambrose allen VERSED 01/06/2018 11:11:48 AM 0.5 mg Leatha Nuñez 0.5 mg VERSED given in lab by Leatha Nuñez RN in Right Arm via Peripheral IV. Ordered by Ambrose Rivera FENTANYL 01/06/2018 11:12:40 AM 25 mcg Leatha Nuñez 25 mcg FENTANYL given in lab by Leatha Nuñez RN in Right Arm via Peripheral IV. Ordered by Ambrose Fuller Medication (Drip) Medication Time Given Dosage/Unit Concentration/Unit Diluent (ml) Solution IV Solutions 01/06/2018 10:05:09 AM 50 mL (IV) NaCl .9 IV Solutions given in lab by Leatha Nuñez RN in Right Arm via Peripheral IV. Pump/Drip Flow using NaCl .9. Initial Case Assessment Cardiovascular Edema Present Skin color Skin None Normal Warm Dry Circulatory - Right Pulses Dorsalis Pedis Femoral Radial 1 1 2 Scale (0,1,2,3,4,d) Scale (0,1,2,3,4,d) Neurological State Oriented to time-place- Alert Moves all extremities person Final Case Assessment Cardiovascular HR Rhythm NIBP Chest Pain 83 sr 142/66 0 Edema Present Skin color Skin None Normal Warm Dry Circulatory - Right Pulses Dorsalis Pedis Femoral Radial 1 1 2 Scale (0,1,2,3,4,d) Scale (0,1,2,3,4,d) Neurological State Oriented to time-place- Alert Moves all extremities person Respiration - General Respiration Rate SpO2 (%) O2 (lpm) (B/min) 18 98 0 Chronological Log Time Study Chronological Log 9:53:00 Patient arrived via Bed. 10:04:53 Patient Name, D.O.B, / Armband Verified By R.N. 10:04:53 Consent signed by the physician and the patient and verified by the [employer] staff. 10:04:54 Pre-op and post- op instructions given; patient acknowledges understanding of instructions. 10:04:57 Allens test performed on the right radial and ulnar artery. 10:04:58 Presedation assessment performed by [employer] RN. 10:05:00 Patient has been NPO for More than 6Hrs. 10:05:00 Skin Breakdown- none per pt 10:05:02 Patient Warmer Placed on the Table. 10:05:04 Pedro Prominences Protected 10:05:05 A # 18 IV was noted in the Upper Arm (right). Grade = 0 10:05:09 IV Solutions given in lab by Leatha Nuñez, RN in Right Arm via Peripheral IV. Pump/Drip Flow using NaCl .9. 10:05:09 History and physical on the chart or being dictated. Assessment: Initial Case, Edema=None, Color=Normal, Skin = Warm, Dry 10:05:10 Right Pulses: John Ped=1, Femoral=1, Radial=2 Neurological: State=Alert, Ox3, MENDOZA Vitals capture started with the following parameters, Patient=Adult, Interval=5 min, Initial Pr xiaefs=997 mmHg, 10:05:16 Deflation Rate=5 mmHg, Cuff placed on Left Leg 10:05:54 HR=91 bpm, IWGQ=157/76 mmhg, SpO2=95.0 % 10:06:58 Right Radial and groin(s) prepped with 2% chlorhexidine, and draped after a 3 min. waiting time. 10:07:13 Reference ECG taken 10:10:55 HR=88 bpm, LDJU=772/72 mmhg, SpO2=96.0 % 10:15:56 HR=92 bpm, OPLN=595/76 mmhg, SpO2=95.0 % 10:17:49 MD paged 10:20:21 MD arrived. 10:20:55 HR=93 bpm, NMXH=999/78 mmhg, SpO2=95.0 % 10:24:13 Pressure channel 1 zeroed. Time Out. Correct patient, correct procedure, correct physician, labs, allergies, and equipment verified with cathode maker 10:25:45 team present. Fire risk assesment completed (see hard stop sheet for coding). Time Out Conc urred by and individual staff in procedure. 10:25:56 HR=94 bpm, HVZS=109/80 mmhg, SpO2=94.0 % 10:26:24 50 mcg FENTANYL given in lab by Leatha Nuñez RN in Right Arm via Peripheral IV. Ordered by Ambrose Rivera. 10:28:30 Case Start 10:29:09 5 mL 1% XYLOCAINE given in lab by Ambrose Rivera in Right Radial via Subcutaneous. 10:30:57 HR=92 bpm, AIOO=838/62 mmhg, SpO2=90.0 % 10:34:35 Access site was Right Radial Artery . A SHEATH, FR6 TRANSRADIAL SLENDER 10CM FR 6 was advanced into the Radial (right) using the Perc utaneous ::44 technique. 5 mL (Bolus) RADIAL COCKTAIL given in lab by Ambrose Rivera in Right Radial via Radial. Us ing [Solution Name]. 10:34:53 Reason: Ntg 200mcg Verapamil 2.5mg Heparin 3300U. 10:35:06 Access site was Right Brachial Vein via ultrasound. A SHEATH, FR6 TRANSRADIAL SLENDER 10CM FR 6 was advanced into the Brach. Vein (right) using the Percutaneous 10:35:28 technique. 10:35:43 A CATHETER, FR5 SWAN RADHA MONITOR FR 5 was inserted via Brach. Vein (right) 10:35:56 HR=83 bpm, KHJX=773/61 mmhg, SpO2=88.0 % Recorded Pressure: PCW, HR=82, Condition=Condition 1 10:38:46 (Pulmonary Capillary Wedge) PCW 41/37/29 10:40:30 Saturation: Site=PA (Pulmonary Artery) , O2=67.3 %, Hgb=15.5 gm/dl, Condition=Condition 1. Used in calculation. 10:40:53 HR=83 bpm, HWHQ=218/62 mmhg, SpO2=89.0 % Recorded Pressure: MPA, HR=83, Condition=Condition 1 10:41:33 (Main Pulmonary Artery) MPA 51/21/33 10:42:07 Saturation: Site=Ao (Aorta) , O2=94 %, Hgb=15.5 gm/dl, Condition=Condition 1. Used in [facility]. Recorded Pressure: RV, HR=83, Condition=Condition 1 10:43:23 (Right Ventricle) RV 53/1/11 Recorded Pressure: RA, HR=84, Condition=Condition 1 10:43:50 (Right Atrium) RA 10:44:57 [place] Radha Catheter Removed A JR 4.0 INFINITI CATHETER FR 5 was advanced over a wire. OMNIPAQUE, 350 MG, 150ML 150ML was us ed for 10:45:05 injections. Recorded Pressure: LV, HR=85, Condition=Condition 1 10:45:52 (Left Ventricle) LV 127/9/17 10:45:57 HR=84 bpm, REFO=058/65 mmhg, SpO2=92.0 % Recorded Pressure: LV, Ao, HR=83, Condition=Condition 1 10:46:09 (Left Ventricle) LV 127/8/15, (Aorta) Ao 123/61/87 Recorded Pressure: Ao, HR=91, Condition=Condition 1 10:46:26 (Aorta) Ao 127/72/95 10:48:11 The RCA was injected and visualized at various angles. OMNIPAQUE, 350 MG, 150ML 150ML used . After removing the current catheter a JL 3.5 INFINITI CATHETER FR 5 was advanced over a WIRE, E XCHANGE 260CM 10:49:54 3MMJ 260CM. 10:50:56 HR=90 bpm, LYTD=228/77 mmhg, SpO2=89.0 % 10:51:49 2 l/min OXYGEN given in lab by Leatha Nuñez, TAMERA via Nasal. Ordered by Ambrose Rivera 10:53:49 The LCA was injected and visualized at various angles. OMNIPAQUE, 350 MG, 150ML 150ML used . 10:55:59 HR=86 bpm, CKYJ=017/83 mmhg, SpO2=96.0 % After removing the current catheter a EBU 3.5 Z2 GUIDE CATHETER FR 6 was advanced over a WIRE, EXCHANGE 10:58:47 260CM 3MMJ 260CM. 4100 units HEPARIN given in lab by Leatha Nuñez, RN in Right Arm via Peripheral IV. Ordered by Ambrose Rivera 11:00:03 G. 11:01:00 HR=84 bpm, LYNN=245/71 mmhg, SpO2=98.0 % After removing the current catheter a JL 3.5 GUIDE CATHETER FR 6 was advanced over a WIRE, EXCH TIFFANY 260CM 11:04:27 3MMJ 260CM. 11:06:01 HR=76 bpm, CTVF=196/60 mmhg, SpO2=99.0 % 11:10:58 HR=80 bpm, CIHI=607/69 mmhg, SpO2=99.0 % 11:11:48 0.5 mg VERSED given in lab by Leatha Nuñez, TAMERA in Right Arm via Peripheral IV. Ordered b Ambrose Olguin 11:12:40 25 mcg FENTANYL given in lab by Leatha Nuñez, TAMERA in Right Arm via Peripheral IV. Ordered by Ambrose Rivera 11:12:51 A WIRE, BALANCE MIDDLEWEIGHT 190CM 190CM was inserted via Radial (right). 11:15:59 HR=83 bpm, CGHI=330/69 mmhg, SpO2=95.0 % 11:18:16 An ivus OPTICROSS IMAGING was advanced through the lesion. Images saved onto IVUS hard dr ollie 11:19:37 IVUS in progress using OPTICROSS ivus Mean Luminal Area measured 5.74 ~MEAN LUMINAL~ 11:20:58 HR=82 bpm, RVRI=844/69 mmhg, SpO2=95.0 % 11:21:40 IVUS catheter removed 11:25:59 HR=75 bpm, OFJV=236/63 mmhg, SpO2=97.0 % 11:30:35 Activated Clotting Time Drawn 11:30:58 HR=81 bpm, WKAI=017/66 mmhg, SpO2=97.0 %, Perez=2 11:33:34 Case End (Physician broke scrub) Assessment: Final Case, HR=83 BPM, Rhythm=sr, RRGO=686/66 mmhg, Chest Pain=0, Edema=None, Color =Normal, Skin = Warm, Dry 11:33:42 Right Pulses: John Ped=1, Femoral=1, Radial=2 Neurological: State=Alert, Ox3, MENDOZA Respiration: Resp=18 B/min, SpO2=98 %, O2=0 lpm 11:34:26 Catheter(s) removed without difficulty 11:34:41 ACT (Normal Range 90-180) = 264 11:35:59 HR=80 bpm, NBDQ=012/73 mmhg, SpO2=97.0 %, Perez=2 Radial Compression Device Used. 13 mLs of air placed in BAND, RADIAL COMPRESSION TR SHORT 24 2 4CM. Affected 11:37:14 hand ~O2 SATURATION~ % O2 saturation. 11:38:53 Cine recording checked. 11:40:03 Verbal Stimulation=2 Physical Stimulation=2 Airway=2 Respiration=2 TOTAL=8. (0=absent, 1=l imited, 2=present) 11:41:00 HR=78 bpm, XKFF=982/64 mmhg, SpO2=93.0 %, Perez=2 End Study - Contrast Media Used In Study Contrast Total Opened (mL) Total Used (mL) Total Wasted (mL) Omnipaque 85 85 0 End Study - Maximum Contrast Load Max Contrast Load (mL) 453.3 End Study - Radiation Exposure Fluoro Time (minutes) 11.8 End Study - Patient Disposition Complications Transferred To No Telemetry Bed
[2018-01-06 11:57] LABS: Hemoglobin A1c 5.6 % (4.3-6.0)
--- NOTE | 2018-01-06 15:26 | P.PNCA ---
Subjective Interval history: Post cath, found to have significant left main disease Doing well, no chest pain/SOB Physical Exam Vital signs: Vital Signs 01/05/18 19:10 01/05/18 20:00 01/06/18 00:00 Temperature 98.7 F 97.7 F Pulse Rate 94 H 90 80 Respiratory Rate 18 18 Blood Pressure 140/81 132/86 Pulse Oximetry 96 95 01/06/18 06:23 01/06/18 08:00 01/06/18 11:51 Temperature 98 F 98.1 F Pulse Rate 80 87 Respiratory Rate 18 16 Blood Pressure 120/70 132/87 Pulse Oximetry 95 96 93 L Intake & Output 01/05/18 01/06/18 01/06/18 18:59 06:59 18:59 Intake Total 400 / 400 Balance 400 / 400 Intake: Oral 400 / 400 Other: # Voids 4 # Incontinent Voids 2 Narrative: GENERAL: SKIN: Warm and dry. HEAD: Atraumatic. Normocephalic. EYES: Pupils equal and round. No scleral icterus. No injection or drainage. ENT: No nasal bleeding or discharge. Mucous membranes pink and moist. NECK: Trachea midline. No JVD. CARDIOVASCULAR: Regular rate and rhythm. S1,S2 AND NO S3 OR S4 RESPIRATORY: No accessory muscle use. Clear to auscultation. Breath sounds equal bilaterally. GASTROINTESTINAL: Abdomen soft, non-tender, nondistended. Hepatic and splenic margins not palpable. MUSCULOSKELETAL: Extremities without clubbing, cyanosis, or edema. No obvious deformities. NEUROLOGICAL: Awake and alert. No obvious cranial nerve deficits. Motor grossly within normal limits. Five out of 5 muscle strength in the arms and legs. Normal speech. PSYCHIATRIC: Appropriate mood and affect; insight and judgment normal. Assessment and Plan - Assessment (1) Ischemic cardiomyopathy Code(s): I25.5 - Ischemic cardiomyopathy Status: Acute (2) CAD (coronary artery disease) Code(s): I25.10 - Atherosclerotic heart disease of [place] coronary artery without angina pectoris Status: Acute (3) Mitral regurgitation Code(s): I34.0 - Nonrheumatic mitral (valve) insufficiency Status: Acute (4) Tricuspid regurgitation Code(s): I07.1 - Rheumatic tricuspid insufficiency Status: Acute (5) Acute dyspnea Code(s): R06.00 - Dyspnea, unspecified Status: Acute (6) New onset of congestive heart failure Code(s): I50.9 - Heart failure, unspecified Status: Acute - Plan 1) Acute decompensated systolic heart failure Appears compensated now 2) Ischemic cardiomyopathy EF 30% 3) Left main disease/mitral regurg/tricuspid regurg CT surgery evaluation Discussed with Dr. Fishman who will see in consultation 4) Heparin drip after TR band removed due to left main disease 5) Elevated wedge pressure due to severe MR with V waves 6) Arimidex stopped due to ischemic heart disease This will have to be reevaluated by Heme/Onc on restarting vs change of meds after surgery 7) Will be out of town, please call covering physician for concerns
[2018-01-06] MEDS ORDERED: Dextrose 50% in Water 50 ML Vial IV.PUSH PRN (15:34)
[2018-01-06] MEDS ORDERED: Sodium Chlor 0.9% Inj 77.5 ML, Papaverine Inj 60 MG, Nitroglycerin Inj 100 MCG, dilTIAZ... IRRIGATION SCH ×3 (15:45)
[2018-01-06] MEDS ORDERED: Chlorhexidine 4% Topical 120 APPLIC/120 ML Bottle TOPICAL SCH (15:45)
[2018-01-06] MEDS ORDERED: Sodium Chloride 0.9% Irr Bot 500 ML, ceFAZolin Inj 500 MG IRRIGATION SCH ×2 (15:45)
--- NOTE | 2018-01-06 15:46 | P.PNIM ---
Subjective Interval history: 57 y/o female with a history of breast cancer s/p chemo and radiation, and HTN presented to the ED with complaints of dyspnea for the past 3-4 weeks. She complains of orthopnea, and dyspnea with exertion, and states she is unable to climb a flight of stairs. She states it has been getting worse and the past 3 days she has noticed bilateral pedal edema. She does have a non productive cough and chest pressure when she lays flat. Denies any fever, chills or dizziness. Last chemo/radiation was in 2013. 01-05 AWAIT ECHO HAS DIURESED WELL LESS SOB LESS SWELLING IN BL LE- ALMOST NORMAL UNOFFICIAL EF NOT SO GOOD DW CARDIO AM LABS 01-06 underwent CARDIAC CATH WITH [address] CRUZ CAD INVOLVING LAD AND CIRCUMFLEX AND VALVE ISSUES WITH MITRAL AND TRICUSPID VALVES [facility] CON[facility]ULT[facility]GERY ON Wednesday LABS NO DISCHARGE UNTIL AFTER CLEARED BY [facility] Physical Exam Vital signs: Vital Signs 01/05/18 19:10 01/05/18 20:00 01/06/18 00:00 Temperature 98.7 F 97.7 F Pulse Rate 94 H 90 80 Respiratory Rate 18 18 Blood Pressure 140/81 132/86 Pulse Oximetry 96 95 01/06/18 06:23 01/06/18 08:00 01/06/18 11:51 Temperature 98 F 98.1 F Pulse Rate 80 87 Respiratory Rate 18 16 Blood Pressure 120/70 132/87 Pulse Oximetry 95 96 93 L Intake & Output 01/05/18 01/06/18 01/06/18 18:59 06:59 18:59 Intake Total 400 / 400 Balance 400 / 400 Intake: Oral 400 / 400 Other: # Voids 4 # Incontinent Voids 2 Narrative: GENERAL: SKIN: Warm and dry. HEAD: Atraumatic. Normocephalic. EYES: Pupils equal and round. No scleral icterus. No injection or drainage. ENT: No nasal bleeding or discharge. Mucous membranes pink and moist. NECK: Trachea midline. No JVD. CARDIOVASCULAR: Regular rate and rhythm. S1,S2 AND NO S3 OR S4 RESPIRATORY: No accessory muscle use. Clear to auscultation. Breath sounds equal bilaterally. GASTROINTESTINAL: Abdomen soft, non-tender, nondistended. Hepatic and splenic margins not palpable. MUSCULOSKELETAL: Extremities without clubbing, cyanosis, or edema. No obvious deformities. NEUROLOGICAL: Awake and alert. No obvious cranial nerve deficits. Motor grossly within normal limits. Five out of 5 muscle strength in the arms and legs. Normal speech. PSYCHIATRIC: Appropriate mood and affect; insight and judgment normal. Results - Labs CBC & Chem 7: 01/06/18 06:08 01/06/18 00:44 Laboratory Results - last 24 hr 01/06/18 01/06/18 01/06/18 00:44 06:08 06:08 WBC 7.0 RBC 5.16 Hgb 15.5 H Hct 47.0 H MCV 91.1 MCH 30.1 MCHC 33.0 RDW 16.6 Plt Count 145 L MPV 10.0 Neut % (Auto) 57.2 Lymph % (Auto) 32.0 [place] % (Auto) 8.3 H Eos % (Auto) 2.0 Baso % (Auto) 0.5 Neut # (Auto) 4.0 Lymph # (Auto) 2.3 [place] # (Auto) 0.6 Eos # (Auto) 0.1 Baso # (Auto) 0.0 WBC Differential . Differential Comment Auto diff final Sodium 144 Potassium 3.5 D Chloride 108 H Carbon Dioxide 27.6 Anion Gap 8 BUN 19 H Creatinine 0.91 Estimated GFR 64 L Random Glucose 78 Hemoglobin A1c 5.6 Calcium 7.2 L* D Prot Corrected Calcium 8.0 L Phosphorus Magnesium 1.9 Total Protein 5.6 L D TSH Free T4 01/06/18 06:08 WBC RBC Hgb Hct MCV MCH MCHC RDW Plt Count MPV Neut % (Auto) Lymph % (Auto) [place] % (Auto) Eos % (Auto) Baso % (Auto) Neut # (Auto) Lymph # (Auto) [place] # (Auto) Eos # (Auto) Baso # (Auto) WBC Differential Differential Comment Sodium Potassium Chloride Carbon Dioxide Anion Gap BUN Creatinine Estimated GFR Random Glucose Hemoglobin A1c Calcium Prot Corrected Calcium Phosphorus 4.6 Magnesium 2.2 Total Protein TSH 5.650 H Free T4 1.15 - Procedures CARDIAC CATH WITH LESIONS IN LAD AND CIRCUMFLEX AND VALVE ISSUES WITH MITRAL AND TRICUSPID 8-16 Assessment and Plan - Plan 57 y/o female with a history of breast cancer s/p chemo and radiation, and HTN presented to the ED with complaints of dyspnea for the past 3-4 weeks. New onset CHF, patient with orthopnea and pedal edema Chest CT reviewed and shows bilateral pleural effusions with mild cardiomegaly BNP 930 -Lasix IV x 1 given in ED, Cont Lasix IV BID -2d echo ordered -Consult to cardiology for evaluation -Fluid restriction AM LABS ECHO STILL PENDING-- LOW EF AT 30% UNDERWENT CARDIAC CATH CARDIAC CATH WITH LESIONS IN LAD AND CIRCUMFLEX AND VALVE ISSUES WITH MITRAL AND TRICUSPID 8-16 Chest pressure, likely due to CHF, r/o ACS Troponin .02-->.04 EKG reviewed and shows sinus tachycardia with no ST elevations -Trend troponin one more set and ekg -Nitropaste and asa ordered in ED HTN, chronic -Resume home medications lisinopril, monitor vitals, adjust accordingly Breast cancer, chronic, in remission -Resume home anastrozole PO SP CARDIAC CATH WITH FINDINGS PER CATH REPORT SCHEDULED FOR SURGERY ON WEDNESDAY WITH [facility] DVT prophylaxis: Heparin Code Status: FULL CODE Discussed Condition With: RN AND PT AND CM AND CARDIOLOGY Discharge Planning: ONCE CLEARED BY [facility] AND CARDIOLOGY AFTER SURGERY
[2018-01-06] MEDS ORDERED: ceFAZolin Inj 2,000 MG in Sodium Chlor 0.9% Inj 80 ML IV.SIG SCH (16:00)
[2018-01-06] MEDS ORDERED: Insulin Regular (For Infusion) 100 UNIT in Sodium Chlor 0.9% Inj 99 ML IV.CONT PRN (16:00)
--- NOTE | 2018-01-06 16:21 | MA ---
cc: Ambrose Rivera DO DATE: 01/06/2018 DATE OF PROCEDURE: 01/06/2018 PROCEDURE: Left heart catheterization, right heart catheterization, coronary angiogram, IVUS left main, moderate sedation, 20 minutes, ultrasound-guided access. PREPROCEDURE DIAGNOSES: Acute decompensated heart failure, new onset cardiomyopathy of unknown cause. POSTPROCEDURE DIAGNOSES: Ischemic cardiomyopathy, left main disease, elevated right heart catheterization pressures due to significant mitral regurgitation. MEDICATIONS: Versed 0.5 mg, fentanyl 75 mcg, verapamil 2.5 mg, nitro 200 mcg, heparin 7400 units. CONTRAST USED: 30 mL. FLUOROSCOPY: 11.8 minutes. MODERATE SEDATION: 20 minutes. FRAILTY SCORE: 3. ESTIMATED BLOOD LOSS: 10 mL. PROCEDURAL SUMMARY: Lisa Carbajal is a pleasant 57-year-old female who presented to [facility] Emergency Room due to shortness of breath. She was found to have a new onset cardiomyopathy and because of this, she was recommended cardiac catheterization. Risks, benefits, and alternatives were explained to her and she consented to such. She was brought to the lab and prepped in the usual sterile fashion. The right radial artery was accessed using modified Seldinger technique and placement of a 5/6-[place] slender sheath. Right brachial vein was accessed using modified Seldinger technique with ultrasound guidance and placement of a 5/6-[place] slender sheath. Both were easily aspirated and flushed. A Tucker-Gissel catheter was advanced to a wedge position and pressures as well as oxygenations were recorded in a standard pullback fashion throughout the heart. Tucker-Gissel catheter was removed. A JR4 was advanced over a J-wire to the ascending aorta and across the aortic valve for measurement of left ventricular pressure. This was pulled back across the aortic valve showing no significant gradient of aortic stenosis. JR4 was used for selective angiography of the right coronary artery system. This is exchanged out for a JL3.5, which was used for selective angiography of the left coronary artery system. Due to the significance dampening and concern for a left main disease, the JL3.5 was exchanged for a . The patient was given additional heparin. A BMW wire was advanced down the left circumflex. IVUS catheter was used for recordings across the left main. Review of recordings show a minimal luminal area of 5.74 at the ostium of the left main, consistent with a significant left main disease. The wire was removed. The guide was removed. Radial band was placed over the arteriotomy site for hemostasis. Venous sheath was left in place with a plan to pull once ACT values were appropriate. The patient left the labor relations consultant cardiovascularly stable. FINDINGS: LEFT MAIN: Ostial 70% disease. It bifurcates into an LAD and circumflex. LAD: Moderate sized vessel with a 50% lesion in the mid portion. Distally has good runoff. It gives off 1 small diagonal, which has 70% ostial stenosis, but is overall about a millimeter in size. LEFT CIRCUMFLEX: Moderate size vessel with no significant disease. It gives off 2 obtuse marginals with no significant disease. RCA: Normal-sized vessel with a 40% lesion in the mid portion. Distally it supplies a PDA and no significant disease. HEMODYNAMICS: RA7. RV 53/0, RVEDP 11. PA 51/21, mean PA 33. Wedge 29. LVEDP 15. IMPRESSION: 1. Compensated systolic heart failure. 2. Ischemic cardiomyopathy with left main disease and an ejection fraction of 30%. 3. Mild pulmonary hypertension, most likely due to severe mitral regurgitation and V waves noted. RECOMMENDATIONS: 1. Ms. Carbajal appears to have left main disease and she will be recommended for CT surgery. 2. I discussed with CT surgery about the images and overall, about the patient. 3. We will start heparin drip 1 hour after her TR band is removed. 4. Arimidex will be held due to ischemic heart disease. This will have to be reevaluated post CABG/MVR/TVR. Thank you for allowing me to see Lisa Carbajal. If there are any questions, please do not hesitate to call. Ambrose Rivera DO [facility]/ , 03:36 PM , 03:46 PM
--- NOTE | 2018-01-06 16:37 | MB ---
cc: Shaylee Gil DATE: 01/06/2018 HISTORY OF PRESENT ILLNESS: This 57-year-old female, unsure of the name of her new primary care physician, presented to the emergency room on 01/04/2018 with complaint of fatigue for the past 6 months shortness of breath over the past couple of weeks, mainly with exertion. She has noticed some orthopnea, some dyspnea, mainly if she is climbing some stairs. She works at the [employer] and has had some difficulty at work. She has also noted a 3-4 day period of some lower extremity edema, nonproductive cough, some chest pressure when she lies flat. She underwent echocardiogram where she was found to have an ejection fraction of 30%, moderate to severe mitral regurgitation, moderate to severe tricuspid regurgitation. She underwent heart catheterization today, which showed a 70% left main, IVUS area 5.71, proximal LAD 30%, the mid distal LAD 50%, the diagonal 70%. Her RV pressures are 53/0, PA pressure 51/21 with a wedge pressure of 29. We were consulted to evaluate for coronary artery bypass graft x 2, mitral valve repair, tricuspid valve repair. PAST MEDICAL HISTORY: Includes breast cancer with bilateral mastectomy 2013, followed by chemo and radiation, hypertension. She had a pulmonary embolus after her breast reconstruction, was on anticoagulation for 3 months. PAST SURGICAL HISTORY: Include the mastectomy, the reconstructive surgery, removal of Port-A-Cath, heart catheterization. ALLERGIES: NO KNOWN ALLERGIES. HOME MEDICATIONS: Include: 1. Arimidex. 2. Lisinopril. FAMILY HISTORY: Mother had breast cancer and stroke, She is alive at 85. Father is alive at 86. SOCIAL HISTORY: No tobacco, no alcohol. , 2 children. 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 REVIEW OF SYSTEMS: GENERAL: No night sweats, fever, heat and cold intolerance. SKIN: No psoriasis, itching or hives. HEENT: No blurred vision, hearing loss. RESPIRATORY: Positive for shortness of breath, cough. CARDIOVASCULAR: Positive for chest pressure, paroxysmal nocturnal dyspnea, orthopnea, leg edema. GASTROINTESTINAL: No diarrhea or vomiting. GENITOURINARY: No burning, frequency, urgency. CENTRAL NERVOUS SYSTEM: No history of TIA, CVA or seizure disorder. ENDOCRINOLOGY: No diabetes and hypothyroidism. PHYSICAL EXAMINATION: VITAL SIGNS: Blood pressure 130/80, heart rate of 86, temperature max 98.1, room air saturation 93. GENERAL: The patient is awake, alert, no acute distress. HEENT: Head is normocephalic, atraumatic. Pupils equal and reactive. Oral mucosa pink, moist. NECK: Supple. No JVD. CARDIOVASCULAR: Heart sounds S1, S2. Regular rate and rhythm. Soft systolic murmur. LUNGS: Diminished in the bases. No overt rales or rhonchi noted. ABDOMEN: Soft, nontender. No masses or organomegaly. EXTREMITIES: Reveal no cyanosis, clubbing, or edema. NEUROLOGIC: No focal deficits. LABORATORY DATA: Shows hemoglobin 15, hematocrit 47, white cell count of 7, platelet count of 145. Sodium 144, potassium 3.5, BUN of 19, creatinine 0.91. Mag level 2.2. BNP was 930. Troponin 0.04, TSH of 5.6 with a free T4 1.15. The patient had other workup including a CTA of the chest, no evidence of pulmonary emboli, some bilateral pleural effusions, mild to moderate cardiomegaly. There was some calcification around the aorta. ASSESSMENT AND PLAN: A 57-year-old female with a new onset of ischemic cardiomyopathy with ejection fraction of 30-35% with severe mitral valve regurgitation, tricuspid valve regurgitation. PLAN: At this time is for coronary artery bypass grafting to the LAD and the circumflex,also mitral valve repair, possible replacement, tricuspid valve repair, possible replacement. I will hold off on JESSICA inhibitor at this time, we can resume that once she has surgery. At this time, procedures, alternatives and risks have been discussed with the patient. She is agreeable to proceed. We will plan on Wednesday. There is no STS score at this time due to a double valve surgery. SAMIA Dugan , 03:46 PM , 03:56 PM
[2018-01-06] MEDS: Heparin Drip 25,000 UNIT/250 ML BAG IV.CONT PRN (18:53)
[2018-01-06 19:17] LABS: Activated Partial Thrombo Time 24.3 sec (24.3-30.1); INR 1.1 Ratio; Prothrombin Time 11.6 sec (9.8-11.6)
[2018-01-06 21:25] LABS: Bilirubin,Urine Negative (Negative); Clarity,Urine Clear (Clear); Color,Urine Yellow (Yellw/Straw); Glucose,Urine (UA) Negative (Negative); Leukocyte Esterase,Urine Negative (Negative); Mucus,Urine Few /lpf (Occasional); Nitrite,Urine Negative (Negative); Specific Gravity,Urine 1.051 (1.002-1.035); Squamous Epithelial Cell,Urine 1 /hpf (0-5)
[2018-01-06] MEDS: Mupirocin 2% Nasal Oint Topical Syringe EACH NARE SCH (21:39)
--- NOTE | 2018-01-06 21:57 | US ---
EXAM DATE: 01/06/2018 9:49 PM EDT AGE/SEX: 57 years / Female INDICATIONS: Pre-op cardiac surgery. CLINICAL DATA: This is the patient's initial encounter. Patient reports that signs and symptoms have been present for 1 day and indicates a pain score of 0/10. MEDICAL/SURGICAL HISTORY: Carcinoma, breast. Hypertension. Pulmonary embolism. . Mastectomy. Port-a-cath removal. Cardiac catheterization. COMPARISON: No prior exams available for comparison. VELOCITY PARAMETERS: ICA/CCA Ratio: Right 1.33 , Left 0.94 ICA: Right 170 cm/sec, Left 122 cm/sec CCA: Right 128 cm/sec, Left 131 cm/sec ECA: Right 146 cm/sec, Left 154 cm/sec Vertebral: Right 74 cm/sec antegrade, Left 63 cm/sec antegrade FINDINGS: Right Carotid: Mild soft plaquing in the distal common carotid artery. The waveforms are within norm al limits. Left Carotid: Mild arteriosclerotic plaque is visualized. The waveforms are within normal limits. Other: None. CONCLUSION: 1. Right Internal Carotid Artery: Mild soft plaquing in the distal common carotid artery. No sonogra phic or Doppler findings of a hemodynamically significant stenosis 2. Left Internal Carotid Artery: Minimal athetotic plaquing in the proximal internal. No sonographic or Doppler findings of a hemodynamically significant stenosis. 3. Antegrade flow in both vertebral arteries. Electronically signed by: Geraldo Law MD 01/06/2018 9:56 PM EDT
--- NOTE | 2018-01-06 21:58 | US ---
EXAM DATE: 01/06/2018 9:46 PM EDT AGE/SEX: 57 years / Female INDICATIONS: Pre-op cardiac surgery. CLINICAL DATA: This is the patient's initial encounter. Patient reports that signs and symptoms have been present for 1 day and indicates a pain score of 0/10. MEDICAL/SURGICAL HISTORY: Carcinoma, breast. Hyperparathyroidism. Pulmonary embolism. . Maste ctomy. Port-a-cath removal. Cardiac catheterization. [place] [facility] [place]. . MEASUREMENTS: RIGHT THIGH: Proximal:__4 mm Mid:__ 3 mm Distal:__3 mm LEFT THIGH: Proximal:__5 mm Mid:__3 mm Distal:__3 mm RIGHT CALF: Proximal:__3 mm Mid:__3 mm Distal:__4 mm LEFT CALF: Proximal:__3 mm Mid:__3 mm Distal:__3 mm FINDINGS: The venous system of the lower extremities are patent by color Doppler imaging. Measurements of the leg veins (in mm) are listed above. CONCLUSION: Venous mapping as above. Electronically signed by: Geraldo Law MD 01/06/2018 9:57 PM EDT
[2018-01-06] MEDS ORDERED: Heparin 10,000 UNITS/10 ML Vial (for IV use) IV.PUSH PRN ×2 (23:54)
[2018-01-07] MEDS: Lisinopril 20 MG Tablet PO SCH (08:36)
[2018-01-07] MEDS: Mupirocin 2% Nasal Oint Topical Syringe EACH NARE SCH ×2 (08:36→20:32)
--- NOTE | 2018-01-07 08:47 | P.PNCA ---
Subjective Interval history: No chest pain. SOB less. No complaints Physical Exam Vital signs: Vital Signs 01/06/18 11:51 01/06/18 15:49 01/06/18 16:00 Temperature Pulse Rate 96 H Respiratory Rate 18 Blood Pressure Pulse Oximetry 93 L 01/06/18 16:35 01/06/18 17:00 01/06/18 18:00 Temperature 97.6 F Pulse Rate 95 H 90 89 Respiratory Rate 12 Blood Pressure 158/83 H Pulse Oximetry 96 01/06/18 19:00 01/06/18 20:00 01/06/18 21:00 Temperature 98 F Pulse Rate 93 H 104 H 84 Respiratory Rate 16 Blood Pressure 162/73 H Pulse Oximetry 95 01/06/18 22:00 01/06/18 23:00 01/07/18 00:00 Temperature 98.6 F Pulse Rate 88 82 78 Respiratory Rate 14 Blood Pressure 146/75 H Pulse Oximetry 97 01/07/18 01:00 01/07/18 02:00 01/07/18 03:00 Temperature 98.4 F Pulse Rate 76 76 75 Respiratory Rate 14 Blood Pressure 145/72 H Pulse Oximetry 95 01/07/18 04:00 01/07/18 05:00 01/07/18 06:00 Temperature Pulse Rate 80 80 78 Respiratory Rate Blood Pressure Pulse Oximetry 01/07/18 07:00 Temperature 98.1 F Pulse Rate 96 H Respiratory Rate 20 Blood Pressure 173/75 H Pulse Oximetry 98 Intake & Output 01/06/18 01/07/18 01/07/18 18:59 06:59 18:59 Intake Total 240 / 240 240 / 240 Output Total 0 / 0 1949 Balance 240 / 240 -1710 / -1710 Weight 77.7 kg Intake: Oral 240 / 240 240 / 240 Output: Urine 0 / 0 1949 Narrative: Alert, NAD Chest: diminished BS CV S1S2 RRR, no M Abd soft Ect no edema, Right wrist OK, RRA pulse OK Assessment and Plan - Assessment (1) Ischemic cardiomyopathy Code(s): I25.5 - Ischemic cardiomyopathy Status: Acute (2) CAD (coronary artery disease) Code(s): I25.10 - Atherosclerotic heart disease of [place] coronary artery without angina pectoris Status: Acute (3) Mitral regurgitation Code(s): I34.0 - Nonrheumatic mitral (valve) insufficiency Status: Acute (4) Tricuspid regurgitation Code(s): I07.1 - Rheumatic tricuspid insufficiency Status: Acute (5) Acute dyspnea Code(s): R06.00 - Dyspnea, unspecified Status: Acute (6) New onset of congestive heart failure Code(s): I50.9 - Heart failure, unspecified Status: Acute - Plan 1) Acute decompensated systolic heart failure Appears compensated now 2) Ischemic cardiomyopathy EF 30% 3) Left main disease/mitral regurg/tricuspid regurg CT surgery evaluation Discussed with Dr. Fishman who will see in consultation 4) Heparin drip after TR band removed due to left main disease 5) Elevated wedge pressure due to severe MR with V waves 6) Arimidex stopped due to ischemic heart disease This will have to be reevaluated by Heme/Onc on restarting vs change of meds after surgery 7) Will be out of town, please call covering physician for concerns 01/07/2018 K+ low, repletion ordered. Note 6 beat run VT 01:38. Less congested - reduce furosemide to daily add nitropaste for ischemic protection
[2018-01-07] MEDS: Metoprolol Tartrate 25 MG Tablet PO SCH ×4 (08:55→20:44)
[2018-01-07] MEDS ORDERED: amLODIPine 10 MG Tablet PO SCH (09:15)
[2018-01-07] MEDS: amLODIPine 5 MG Tablet PO SCH (09:54)
[2018-01-07 11:43] LABS: Baso # (Auto) 0.1 th/mm3 (0.0-0.2); Baso % (Auto) 0.7 % (0.0-2.0); Eos # (Auto) 0.1 th/mm3 (0.0-0.4); Eos % (Auto) 1.6 % (0.0-4.0); Hematocrit 46.6 % (35.0-46.0); Hemoglobin 15.6 gm/dL (11.6-15.3); Lymph % (Auto) 26.5 % (9.0-44.0); Mean Corpuscular HGB Conc 33.5 % (32.0-36.0); Mean Corpuscular Hemoglobin 30.2 pg (27.0-34.0); Mean Corpuscular Volume 90.1 fL (80.0-100.0); Mean Platelet Volume 9.6 fL (7.0-11.0); Mono # (Auto) 0.6 th/mm3 (0.0-0.9); Mono % (Auto) 7.5 % (0.0-8.0); Neut # (Auto) 4.9 th/mm3 (1.8-7.7); Neut % (Auto) 63.7 % (16.0-70.0); Platelet Count 168 th/mm3 (150-450); Red Blood Count 5.17 mil/mm3 (4.00-5.30); Red Cell Distribution Width 16.6 % (11.6-17.2); White Blood Count 7.7 th/mm3 (4.0-11.0)
[2018-01-07 12:13] LABS: Alanine Aminotransferase 38 U/L (10-53); Albumin 3.5 g/dL (3.4-5.0); Alkaline Phosphatase 97 U/L (45-117); Anion Gap 10 meq/L (5-15); Aspartate Aminotransferase 27 U/L (15-37); Blood Urea Nitrogen 18 mg/dL (7-18); Calcium 8.7 mg/dL (8.5-10.1); Carbon Dioxide 26.4 meq/L (21.0-32.0); Chloride 104 meq/L (98-107); Glomerular Filtration Rate 59 mL/min (>89); Glucose,Random 122 mg/dL (74-106); Magnesium 2.2 mg/dL (1.5-2.5); Potassium 3.8 meq/L (3.5-5.1); Sodium 140 meq/L (136-145); Total Protein 6.7 g/dL (6.4-8.2)
--- NOTE | 2018-01-07 13:50 | P.PNCV ---
- Note Subjective/Hospital Course: 57-year-old female, unsure of the name of her new primary care physician, presented to the emergency room on 01/04/2018 with complaint of fatigue for the past 6 months shortness of breath over the past couple of weeks, mainly with exertion. She has noticed some orthopnea, some dyspnea, mainly if she is climbing some stairs. She works at the [employer] and has had some difficulty at work. She has also noted a 3-4 day period of some lower extremity edema, nonproductive cough, some chest pressure when she lies flat. She underwent echocardiogram where she was found to have an ejection fraction of 30%, moderate to severe mitral regurgitation, moderate to severe tricuspid regurgitation. She underwent heart catheterization today, which showed a 70% left main, IVUS area 5.71, proximal LAD 30%, the mid distal LAD 50%, the diagonal 70%. Her RV pressures are 53/0, PA pressure 51/21 with a wedge pressure of 29. We were consulted to evaluate for coronary artery bypass graft x 2, mitral valve repair, tricuspid valve repair. PAST MEDICAL HISTORY: Includes breast cancer with bilateral mastectomy 2013, followed by chemo and radiation ( on Arimidex) , hypertension. She had a pulmonary embolus after her breast reconstruction, was on anticoagulation for 3 months. Objective: Vital Signs - 24 hr 01/06/18 15:49 01/06/18 16:00 01/06/18 16:35 Temperature 97.6 F Pulse Rate 96 H 95 H Respiratory Rate 18 12 Blood Pressure 158/83 H Pulse Oximetry 96 01/06/18 17:00 01/06/18 18:00 01/06/18 19:00 Temperature 98 F Pulse Rate 90 89 93 H Respiratory Rate 16 Blood Pressure 162/73 H Pulse Oximetry 95 01/06/18 20:00 01/06/18 21:00 01/06/18 22:00 Temperature Pulse Rate 104 H 84 88 Respiratory Rate Blood Pressure Pulse Oximetry 01/06/18 23:00 01/07/18 00:00 01/07/18 01:00 Temperature 98.6 F Pulse Rate 82 78 76 Respiratory Rate 14 Blood Pressure 146/75 H Pulse Oximetry 97 01/07/18 02:00 01/07/18 03:00 01/07/18 04:00 Temperature 98.4 F Pulse Rate 76 75 80 Respiratory Rate 14 Blood Pressure 145/72 H Pulse Oximetry 95 08/17/18 05:00 01/07/18 06:00 01/07/18 07:00 Temperature 98.1 F Pulse Rate 80 78 102 H Respiratory Rate 20 Blood Pressure 173/75 H Pulse Oximetry 98 01/07/18 08:00 01/07/18 09:00 01/07/18 10:00 Temperature Pulse Rate 84 96 H 90 Respiratory Rate Blood Pressure Pulse Oximetry 01/07/18 11:00 01/07/18 12:00 Temperature 97.8 F Pulse Rate 80 78 Respiratory Rate 18 Blood Pressure 133/70 Pulse Oximetry 98 Labs: Laboratory Results - last 12 hr 01/07/18 01/07/18 01/07/18 02:41 11:19 11:19 WBC 7.7 RBC 5.17 Hgb 15.6 H Hct 46.6 H MCV 90.1 MCH 30.2 MCHC 33.5 RDW 16.6 Plt Count 168 MPV 9.6 Neut % (Auto) 63.7 Lymph % (Auto) 26.5 [place] % (Auto) 7.5 Eos % (Auto) 1.6 Baso % (Auto) 0.7 Neut # (Auto) 4.9 Lymph # (Auto) 2.0 [place] # (Auto) 0.6 Eos # (Auto) 0.1 Baso # (Auto) 0.1 WBC Differential . Differential Comment Auto diff final APTT 30.6 H D Sodium 140 Potassium 3.8 Chloride 104 Carbon Dioxide 26.4 Anion Gap 10 BUN 18 Creatinine 0.97 Estimated GFR 59 L Random Glucose 122 H Calcium 8.7 D Phosphorus 4.0 Magnesium 2.2 Total Bilirubin 0.6 AST 27 ALT 38 Alkaline Phosphatase 97 Total Protein 6.7 D Albumin 3.5 01/07/18 11:19 WBC RBC Hgb Hct MCV MCH MCHC RDW Plt Count MPV Neut % (Auto) Lymph % (Auto) [place] % (Auto) Eos % (Auto) Baso % (Auto) Neut # (Auto) Lymph # (Auto) [place] # (Auto) Eos # (Auto) Baso # (Auto) WBC Differential Differential Comment APTT 46.9 H D Sodium Potassium Chloride Carbon Dioxide Anion Gap BUN Creatinine Estimated GFR Random Glucose Calcium Phosphorus Magnesium Total Bilirubin AST ALT Alkaline Phosphatase Total Protein Albumin Result Diagrams: 01/07/18 11:19 01/07/18 11:19
--- NOTE | 2018-01-07 14:08 | P.PNCV ---
- Note Subjective/Hospital Course: 57-year-old female, unsure of the name of her new primary care physician, presented to the emergency room on 01/04/2018 with complaint of fatigue for the past 6 months shortness of breath over the past couple of weeks, mainly with exertion. She has noticed some orthopnea, some dyspnea, mainly if she is climbing some stairs. She works at the [employer] and has had some difficulty at work. She has also noted a 3-4 day period of some lower extremity edema, nonproductive cough, some chest pressure when she lies flat. She underwent echocardiogram where she was found to have an ejection fraction of 30%, moderate to severe mitral regurgitation, moderate to severe tricuspid regurgitation. She underwent heart catheterization today, which showed a 70% left main, IVUS area 5.71, proximal LAD 30%, the mid distal LAD 50%, the diagonal 70%. Her RV pressures are 53/0, PA pressure 51/21 with a wedge pressure of 29. We were consulted to evaluate for coronary artery bypass graft x 2, mitral valve repair, tricuspid valve repair. PAST MEDICAL HISTORY: Includes breast cancer with bilateral mastectomy 2013, followed by chemo and radiation, hypertension. She had a pulmonary embolus after her breast reconstruction, was on anticoagulation for 3 months.. 01/06 no chest pain / had episode of short run VT last night K+ replaced, placed on Ntg for surgery on wednesday Objective: Vital Signs - 24 hr 01/06/18 15:49 01/06/18 16:00 01/06/18 16:35 Temperature 97.6 F Pulse Rate 96 H 95 H Respiratory Rate 18 12 Blood Pressure 158/83 H Pulse Oximetry 96 01/06/18 17:00 01/06/18 18:00 01/06/18 19:00 Temperature 98 F Pulse Rate 90 89 93 H Respiratory Rate 16 Blood Pressure 162/73 H Pulse Oximetry 95 01/06/18 20:00 01/06/18 21:00 01/06/18 22:00 Temperature Pulse Rate 104 H 84 88 Respiratory Rate Blood Pressure Pulse Oximetry 01/06/18 23:00 01/07/18 00:00 01/07/18 01:00 Temperature 98.6 F Pulse Rate 82 78 76 Respiratory Rate 14 Blood Pressure 146/75 H Pulse Oximetry 97 01/07/18 02:00 01/07/18 03:00 01/07/18 04:00 Temperature 98.4 F Pulse Rate 76 75 80 Respiratory Rate 14 Blood Pressure 145/72 H Pulse Oximetry 95 01/07/18 05:00 01/07/18 06:00 01/07/18 07:00 Temperature 98.1 F Pulse Rate 80 78 102 H Respiratory Rate 20 Blood Pressure 173/75 H Pulse Oximetry 98 01/07/18 08:00 01/07/18 09:00 01/07/18 10:00 Temperature Pulse Rate 84 96 H 90 Respiratory Rate Blood Pressure Pulse Oximetry 01/07/18 11:00 01/07/18 12:00 Temperature 97.8 F Pulse Rate 80 78 Respiratory Rate 18 Blood Pressure 133/70 Pulse Oximetry 98 GENERAL: SKIN: Warm and dry. HEAD: Normocephalic. EYES: No scleral icterus. No injection or drainage. NECK: Supple, trachea midline. No JVD or lymphadenopathy. CARDIOVASCULAR: Regular rate and rhythm without murmurs, gallops, or rubs. RESPIRATORY: Breath sounds equal bilaterally. No accessory muscle use. GASTROINTESTINAL: Abdomen soft, non-tender, nondistended. MUSCULOSKELETAL: No cyanosis, or edema. BACK: Nontender without obvious deformity. No CVA tenderness. Labs: Laboratory Results - last 12 hr 01/07/18 01/07/18 01/07/18 02:41 11:19 11:19 WBC 7.7 RBC 5.17 Hgb 15.6 H Hct 46.6 H MCV 90.1 MCH 30.2 MCHC 33.5 RDW 16.6 Plt Count 168 MPV 9.6 Neut % (Auto) 63.7 Lymph % (Auto) 26.5 [place] % (Auto) 7.5 Eos % (Auto) 1.6 Baso % (Auto) 0.7 Neut # (Auto) 4.9 Lymph # (Auto) 2.0 [place] # (Auto) 0.6 Eos # (Auto) 0.1 Baso # (Auto) 0.1 WBC Differential . Differential Comment Auto diff final APTT 30.6 H D Sodium 140 Potassium 3.8 Chloride 104 Carbon Dioxide 26.4 Anion Gap 10 BUN 18 Creatinine 0.97 Estimated GFR 59 L Random Glucose 122 H Calcium 8.7 D Phosphorus 4.0 Magnesium 2.2 Total Bilirubin 0.6 AST 27 ALT 38 Alkaline Phosphatase 97 Total Protein 6.7 D Albumin 3.5 01/07/18 11:19 WBC RBC Hgb Hct MCV MCH MCHC RDW Plt Count MPV Neut % (Auto) Lymph % (Auto) [place] % (Auto) Eos % (Auto) Baso % (Auto) Neut # (Auto) Lymph # (Auto) [place] # (Auto) Eos # (Auto) Baso # (Auto) WBC Differential Differential Comment APTT 46.9 H D Sodium Potassium Chloride Carbon Dioxide Anion Gap BUN Creatinine Estimated GFR Random Glucose Calcium Phosphorus Magnesium Total Bilirubin AST ALT Alkaline Phosphatase Total Protein Albumin Result Diagrams: 01/07/18 11:19 01/07/18 11:19 Telemetry: NSR - Plan (4) CAD (coronary artery disease) Plan: for surgery on Wednesday (4) CAD (coronary artery disease) Qualifiers: Qualified Code(s): I25.10 - Atherosclerotic heart disease of [place] coronary artery without angina pectoris
--- NOTE | 2018-01-07 14:09 | P.PNIM ---
Subjective Interval history: Patient says she is feeling all right. Denies any chest pain or shortness of breath currently. Denies any nausea or vomiting. Had a bowel movement yesterday. Physical Exam Vital signs: Vital Signs 01/06/18 15:49 01/06/18 16:00 01/06/18 16:35 Temperature 97.6 F Pulse Rate 96 H 95 H Respiratory Rate 18 12 Blood Pressure 158/83 H Pulse Oximetry 96 01/06/18 17:00 01/06/18 18:00 01/06/18 19:00 Temperature 98 F Pulse Rate 90 89 93 H Respiratory Rate 16 Blood Pressure 162/73 H Pulse Oximetry 95 01/06/18 20:00 01/06/18 21:00 01/06/18 22:00 Temperature Pulse Rate 104 H 84 88 Respiratory Rate Blood Pressure Pulse Oximetry 01/06/18 23:00 01/07/18 00:00 01/07/18 01:00 Temperature 98.6 F Pulse Rate 82 78 76 Respiratory Rate 14 Blood Pressure 146/75 H Pulse Oximetry 97 01/07/18 02:00 01/07/18 03:00 01/07/18 04:00 Temperature 98.4 F Pulse Rate 76 75 80 Respiratory Rate 14 Blood Pressure 145/72 H Pulse Oximetry 95 01/07/18 05:00 01/07/18 06:00 01/07/18 07:00 Temperature 98.1 F Pulse Rate 80 78 102 H Respiratory Rate 20 Blood Pressure 173/75 H Pulse Oximetry 98 01/07/18 08:00 01/07/18 09:00 01/07/18 10:00 Temperature Pulse Rate 84 96 H 90 Respiratory Rate Blood Pressure Pulse Oximetry 01/07/18 11:00 01/07/18 12:00 Temperature 97.8 F Pulse Rate 80 78 Respiratory Rate 18 Blood Pressure 133/70 Pulse Oximetry 98 Intake & Output 01/06/18 01/07/18 01/07/18 18:59 06:59 18:59 Intake Total 240 / 240 240 / 240 Output Total 0 / 0 1949 Balance 240 / 240 -1710 / -1710 Weight 77.7 kg Intake: Oral 240 / 240 240 / 240 Output: Urine 0 / 0 1949 Narrative: GENERAL: Patient sitting up in bed. Appears comfortable. SKIN: Warm and dry. HEAD: Normocephalic. EYES: No scleral icterus. No injection or drainage. NECK: Supple, trachea midline. No JVD or lymphadenopathy. CARDIOVASCULAR: Regular rate and rhythm without murmurs, gallops, or rubs. No crackles. RESPIRATORY: Breath sounds equal bilaterally. No accessory muscle use. GASTROINTESTINAL: Abdomen soft, non-tender, nondistended. MUSCULOSKELETAL: No cyanosis. Trace peripheral edema. BACK: Nontender without obvious deformity. No CVA tenderness. Results - Labs CBC & Chem 7: 01/07/18 11:19 01/07/18 11:19 Laboratory Results - last 24 hr 01/06/18 01/06/18 01/06/18 18:45 18:45 19:00 WBC RBC Hgb Hct MCV MCH MCHC RDW Plt Count MPV Neut % (Auto) Lymph % (Auto) [place] % (Auto) Eos % (Auto) Baso % (Auto) Neut # (Auto) Lymph # (Auto) [place] # (Auto) Eos # (Auto) Baso # (Auto) WBC Differential Differential Comment PT 11.6 INR 1.1 APTT 24.3 Sodium Potassium Chloride Carbon Dioxide Anion Gap BUN Creatinine Estimated GFR Random Glucose Calcium Phosphorus Magnesium Total Bilirubin AST ALT Alkaline Phosphatase Total Protein Albumin Urine Color Yellow Urine Clarity Clear Urine pH 7.0 Ur Specific [place] 1.051 H Urine Protein Negative Urine Glucose (UA) Negative Urine Ketones Negative Urine Occult Blood Negative Urine Nitrate Negative Urine Bilirubin Negative Urine Urobilinogen Less than 2 Ur Leukocyte Esterase Negative Urine RBC 1 Urine WBC 2 Ur Squamous Epith Cells 1 Urine Mucus Few H Micro UA Comment Culture not ind Urine Culture Comments Culture not ind Nasal Screen MRSA (PCR) Not detected 01/07/18 01/07/18 01/07/18 02:41 11:19 11:19 WBC 7.7 RBC 5.17 Hgb 15.6 H Hct 46.6 H MCV 90.1 MCH 30.2 MCHC 33.5 RDW 16.6 Plt Count 168 MPV 9.6 Neut % (Auto) 63.7 Lymph % (Auto) 26.5 [place] % (Auto) 7.5 Eos % (Auto) 1.6 Baso % (Auto) 0.7 Neut # (Auto) 4.9 Lymph # (Auto) 2.0 [place] # (Auto) 0.6 Eos # (Auto) 0.1 Baso # (Auto) 0.1 WBC Differential . Differential Comment Auto diff final PT INR APTT 30.6 H D Sodium 140 Potassium 3.8 Chloride 104 Carbon Dioxide 26.4 Anion Gap 10 BUN 18 Creatinine 0.97 Estimated GFR 59 L Random Glucose 122 H Calcium 8.7 D Phosphorus 4.0 Magnesium 2.2 Total Bilirubin 0.6 AST 27 ALT 38 Alkaline Phosphatase 97 Total Protein 6.7 D Albumin 3.5 Urine Color Urine Clarity Urine pH Ur Specific [place] Urine Protein Urine Glucose (UA) Urine Ketones Urine Occult Blood Urine Nitrate Urine Bilirubin Urine Urobilinogen Ur Leukocyte Esterase Urine RBC Urine WBC Ur Squamous Epith Cells Urine Mucus Micro UA Comment Urine Culture Comments Nasal Screen MRSA (PCR) 01/07/18 11:19 WBC RBC Hgb Hct MCV MCH MCHC RDW Plt Count MPV Neut % (Auto) Lymph % (Auto) [place] % (Auto) Eos % (Auto) Baso % (Auto) Neut # (Auto) Lymph # (Auto) [place] # (Auto) Eos # (Auto) Baso # (Auto) WBC Differential Differential Comment PT INR APTT 46.9 H D Sodium Potassium Chloride Carbon Dioxide Anion Gap BUN Creatinine Estimated GFR Random Glucose Calcium Phosphorus Magnesium Total Bilirubin AST ALT Alkaline Phosphatase Total Protein Albumin Urine Color Urine Clarity Urine pH Ur Specific [place] Urine Protein Urine Glucose (UA) Urine Ketones Urine Occult Blood Urine Nitrate Urine Bilirubin Urine Urobilinogen Ur Leukocyte Esterase Urine RBC Urine WBC Ur Squamous Epith Cells Urine Mucus Micro UA Comment Urine Culture Comments Nasal Screen MRSA (PCR) Microbiology 01/06/18 20:35 Stool Stool Occult Blood ([place]) - Final Hemoccult negative - Imaging Impressions Carotid Doppler Study 01/06/18 15:34 CONCLUSION: 1. Right Internal Carotid Artery: Mild soft plaquing in the distal common carotid artery. No sonographic or Doppler findings of a hemodynamically significant stenosis 2. Left Internal Carotid Artery: Minimal athetotic plaquing in the proximal internal. No sonographic or Doppler findings of a hemodynamically significant stenosis. 3. Antegrade flow in both vertebral arteries. Lower Extremity Ultrasound 01/06/18 15:34 CONCLUSION: Venous mapping as above. - Procedures CARDIAC CATH WITH LESIONS IN LAD AND CIRCUMFLEX AND VALVE ISSUES WITH MITRAL AND TRICUSPID 01-06 Assessment and Plan - Plan 57 y/o female with a history of breast cancer s/p chemo and radiation, and HTN presented to the ED with complaints of dyspnea for the past 3-4 weeks. //New onset CHF, patient with orthopnea and pedal edema Chest CT reviewed and shows bilateral pleural effusions with mild cardiomegaly BNP 930 -Lasix IV x 1 given in ED, Cont Lasix IV BID -2d echo ordered -Consult to cardiology for evaluation -Fluid restriction AM LABS ECHO STILL PENDING-- LOW EF AT 30% UNDERWENT CARDIAC CATH = 01/07. Scheduled for surgery Wednesday. Appreciate cardiothoracic surgery assistance. CARDIAC CATH WITH LESIONS IN LAD AND CIRCUMFLEX AND VALVE ISSUES WITH MITRAL AND TRICUSPID 8-16 //Chest pressure, likely due to CHF, r/o ACS Troponin .02-->.04 EKG reviewed and shows sinus tachycardia with no ST elevations -Trend troponin one more set and ekg -Nitropaste and asa ordered in ED //HTN, chronic -Resume home medications lisinopril, monitor vitals, adjust accordingly //Breast cancer, chronic, in remission -Resume home anastrozole PO //DVT prophylaxis: Heparin. Otherwise as per surgery. Discharge Planning: Scheduled for surgery by cardiothoracic surgery on Wednesday, and discharge, likely to rehab pending surgical clearance.
[2018-01-07] MEDS: Heparin Drip 25,000 UNIT/250 ML BAG IV.CONT PRN (15:37)
[2018-01-07] MEDS: Acetaminophen 325 MG Tablet PO PRN (18:48)
[2018-01-08 05:08] LABS: Hematocrit 45.4 % (35.0-46.0); Mean Corpuscular HGB Conc 32.9 % (32.0-36.0); Mean Corpuscular Hemoglobin 29.9 pg (27.0-34.0); Mean Corpuscular Volume 90.9 fL (80.0-100.0); Platelet Count 155 th/mm3 (150-450); Red Blood Count 4.99 mil/mm3 (4.00-5.30); Red Cell Distribution Width 16.3 % (11.6-17.2); White Blood Count 6.6 th/mm3 (4.0-11.0)
[2018-01-08 05:26] LABS: Calcium 8.5 mg/dL (8.5-10.1); Carbon Dioxide 26.5 meq/L (21.0-32.0); Magnesium 2.4 mg/dL (1.5-2.5); Potassium 4.7 meq/L (3.5-5.1)
--- NOTE | 2018-01-08 09:59 | P.PNCV ---
- Note Subjective/Hospital Course: 57-year-old female, unsure of the name of her new primary care physician, presented to the emergency room on 01/04/2018 with complaint of fatigue for the past 6 months shortness of breath over the past couple of weeks, mainly with exertion. She has noticed some orthopnea, some dyspnea, mainly if she is climbing some stairs. She works at the [email or web address] and has had some difficulty at work. She has also noted a 3-4 day period of some lower extremity edema, nonproductive cough, some chest pressure when she lies flat. She underwent echocardiogram where she was found to have an ejection fraction of 30%, moderate to severe mitral regurgitation, moderate to severe tricuspid regurgitation. She underwent heart catheterization today, which showed a 70% left main, IVUS area 5.71, proximal LAD 30%, the mid distal LAD 50%, the diagonal 70%. Her RV pressures are 53/0, PA pressure 51/21 with a wedge pressure of 29. We were consulted to evaluate for coronary artery bypass graft x 2, mitral valve repair, tricuspid valve repair. PAST MEDICAL HISTORY: Includes breast cancer with bilateral mastectomy 2013, followed by chemo and radiation, hypertension. She had a pulmonary embolus after her breast reconstruction, was on anticoagulation for 3 months.. 01/06 no chest pain / had episode of short run VT last night K+ replaced, placed on Ntg for surgery on monday 01/08 Discussed clinical, echo and angiography findings with the patient and her this morning. He has asked about alternative institutions for her cardiac cares, specifically [facility]. He wants to think about the options prior to agree with proceeding with surgery on Wednesday. Will reproach them tomorrow morning as to specific decision and proceed accordingly. 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 Objective: Vital Signs - 24 hr 01/07/18 10:00 01/07/18 11:00 01/07/18 12:00 Temperature 97.8 F Pulse Rate 90 80 78 Respiratory Rate 18 Blood Pressure 133/70 Pulse Oximetry 98 01/07/18 15:00 01/07/18 15:40 01/07/18 17:00 Temperature 98.0 F Pulse Rate 90 86 95 H Respiratory Rate 18 Blood Pressure 144/79 H Pulse Oximetry 97 01/07/18 17:46 01/07/18 19:00 01/07/18 20:00 Temperature 98.8 F Pulse Rate 92 H 92 H 89 Respiratory Rate 22 Blood Pressure 139/67 Pulse Oximetry 95 01/07/18 21:00 01/07/18 22:00 01/07/18 23:00 Temperature 97.9 F Pulse Rate 77 88 88 Respiratory Rate 18 Blood Pressure 134/72 Pulse Oximetry 97 01/08/18 00:00 01/08/18 01:00 01/08/18 02:00 Temperature Pulse Rate 76 81 74 Respiratory Rate Blood Pressure Pulse Oximetry 01/08/18 03:00 01/08/18 04:00 01/08/18 05:00 Temperature 97.9 F Pulse Rate 75 69 61 Respiratory Rate 20 Blood Pressure 119/58 L Pulse Oximetry 98 01/08/18 06:00 01/08/18 07:00 Temperature 98 F Pulse Rate 71 80 Respiratory Rate 18 Blood Pressure 121/69 Pulse Oximetry Labs: Laboratory Results - last 12 hr 01/08/18 01/08/18 01/08/18 04:12 04:12 04:12 WBC 6.6 RBC 4.99 Hgb 15.0 Hct 45.4 MCV 90.9 MCH 29.9 MCHC 32.9 RDW 16.3 Plt Count 155 MPV 10.0 APTT 75.2 H D Sodium 141 Potassium 4.7 D Chloride 107 Carbon Dioxide 26.5 Anion Gap 8 BUN 19 H Creatinine 0.90 Estimated GFR 65 L Random Glucose 88 Calcium 8.5 Magnesium 2.4 Result Diagrams: 01/08/18 04:12 01/08/18 04:12 - Plan (4) CAD (coronary artery disease) Plan: for surgery on Wednesday (4) CAD (coronary artery disease) Qualifiers: Qualified Code(s): I25.10 - Atherosclerotic heart disease of [place] coronary artery without angina pectoris
[2018-01-08] MEDS: amLODIPine 5 MG Tablet PO SCH (10:00)
[2018-01-08] MEDS: Mupirocin 2% Nasal Oint Topical Syringe EACH NARE SCH ×2 (10:00→20:32)
[2018-01-08] MEDS: Metoprolol Tartrate 25 MG Tablet PO SCH ×2 (10:01→20:36)
[2018-01-08] MEDS: Heparin Drip 25,000 UNIT/250 ML BAG IV.CONT PRN (10:04)
--- NOTE | 2018-01-08 14:29 | P.PNCA ---
Subjective Interval history: No angina, no complaints Physical Exam Vital signs: Vital Signs 01/07/18 15:00 01/07/18 15:40 01/07/18 17:00 Temperature 98.0 F Pulse Rate 90 86 95 H Respiratory Rate 18 Blood Pressure 144/79 H Pulse Oximetry 97 01/07/18 17:46 01/07/18 19:00 01/07/18 20:00 Temperature 98.8 F Pulse Rate 92 H 92 H 89 Respiratory Rate 22 Blood Pressure 139/67 Pulse Oximetry 95 01/07/18 21:00 01/07/18 22:00 01/07/18 23:00 Temperature 97.9 F Pulse Rate 77 88 88 Respiratory Rate 18 Blood Pressure 134/72 Pulse Oximetry 97 01/08/18 00:00 01/08/18 01:00 01/08/18 02:00 Temperature Pulse Rate 76 81 74 Respiratory Rate Blood Pressure Pulse Oximetry 01/08/18 03:00 01/08/18 04:00 01/08/18 05:00 Temperature 97.9 F Pulse Rate 75 69 61 Respiratory Rate 20 Blood Pressure 119/58 L Pulse Oximetry 98 01/08/18 06:00 01/08/18 07:00 01/08/18 08:00 Temperature 98 F Pulse Rate 71 78 72 Respiratory Rate 18 Blood Pressure 121/69 Pulse Oximetry 01/08/18 09:00 01/08/18 10:00 01/08/18 11:00 Temperature 97.8 F Pulse Rate 72 74 82 Respiratory Rate 18 Blood Pressure 120/68 Pulse Oximetry 01/08/18 12:00 01/08/18 13:00 Temperature Pulse Rate 72 72 Respiratory Rate Blood Pressure Pulse Oximetry Intake & Output 01/07/18 01/08/18 01/08/18 18:59 06:59 18:59 Intake Total 390 / 390 480 / 480 250 / 250 Balance 390 / 390 480 / 480 250 / 250 Weight 80 kg Intake: IV 150 / 150 250 / 250 Heparin/D5W 25,000 U/250 mL 25, 150 / 150 250 / 250 000 unit In 250 ml @ 1,000 UNITS/HR 10 mls/hr IV.CONT TITRATE PRN Rx#:[id number] Oral 240 / 240 480 / 480 Other: # Voids 2 Date of Last Bowel Movement 08/17/18 08/17/18 08/17/18 Narrative: GENERAL: Patient sitting up in bed. Appears comfortable. SKIN: Warm and dry. HEAD: Normocephalic. EYES: No scleral icterus. No injection or drainage. NECK: Supple, trachea midline. No JVD or lymphadenopathy. CARDIOVASCULAR: Regular rate and rhythm without murmurs, gallops, or rubs. No crackles. RESPIRATORY: Breath sounds equal bilaterally. No accessory muscle use. GASTROINTESTINAL: Abdomen soft, non-tender, nondistended. MUSCULOSKELETAL: No cyanosis. Trace peripheral edema. BACK: Nontender without obvious deformity. No CVA tenderness. Assessment and Plan - Assessment (1) Ischemic cardiomyopathy Code(s): I25.5 - Ischemic cardiomyopathy Status: Acute (2) CAD (coronary artery disease) Code(s): I25.10 - Atherosclerotic heart disease of [place] coronary artery without angina pectoris Status: Acute (3) Mitral regurgitation Code(s): I34.0 - Nonrheumatic mitral (valve) insufficiency Status: Acute (4) Tricuspid regurgitation Code(s): I07.1 - Rheumatic tricuspid insufficiency Status: Acute (5) Acute dyspnea Code(s): R06.00 - Dyspnea, unspecified Status: Acute (6) New onset of congestive heart failure Code(s): I50.9 - Heart failure, unspecified Status: Acute - Plan 1) Acute decompensated systolic heart failure Appears compensated now 2) Ischemic cardiomyopathy EF 30% 3) Left main disease/mitral regurg/tricuspid regurg CT surgery evaluation Discussed with Dr. Fishman who will see in consultation 4) Heparin drip after TR band removed due to left main disease 5) Elevated wedge pressure due to severe MR with V waves 6) Arimidex stopped due to ischemic heart disease This will have to be reevaluated by Heme/Onc on restarting vs change of meds after surgery 7) Will be out of town, please call covering physician for concerns 01/07/2018 K+ low, repletion ordered. Note 6 beat run VT 01:38. Less congested - reduce furosemide to daily add nitropaste for ischemic protection 01/08/2018 Looks stable. K+ better. CABG pending (2) CAD (coronary artery disease) Qualifiers: Qualified Code(s): I25.10 - Atherosclerotic heart disease of [place] coronary artery without angina pectoris
--- NOTE | 2018-01-08 18:03 | P.PNIM ---
Subjective Interval history: Patient seen this morning. States she is feeling well. No chest pain or shortness of breath. CABG planned for Wednesday. Physical Exam Vital signs: Vital Signs 01/07/18 19:00 01/07/18 20:00 01/07/18 21:00 Temperature 98.8 F Pulse Rate 92 H 89 77 Respiratory Rate 22 Blood Pressure 139/67 Pulse Oximetry 95 01/07/18 22:00 01/07/18 23:00 01/08/18 00:00 Temperature 97.9 F Pulse Rate 88 88 76 Respiratory Rate 18 Blood Pressure 134/72 Pulse Oximetry 97 01/08/18 01:00 01/08/18 02:00 01/08/18 03:00 Temperature 97.9 F Pulse Rate 81 74 75 Respiratory Rate 20 Blood Pressure 119/58 L Pulse Oximetry 98 01/08/18 04:00 01/08/18 05:00 01/08/18 06:00 Temperature Pulse Rate 69 61 71 Respiratory Rate Blood Pressure Pulse Oximetry 01/08/18 07:00 01/08/18 08:00 01/08/18 09:00 Temperature 98 F Pulse Rate 78 72 72 Respiratory Rate 18 Blood Pressure 121/69 Pulse Oximetry 01/08/18 10:00 01/08/18 11:00 01/08/18 12:00 Temperature 97.8 F Pulse Rate 74 82 72 Respiratory Rate 18 Blood Pressure 120/68 Pulse Oximetry 01/08/18 13:00 01/08/18 15:00 Temperature 98 F Pulse Rate 72 87 Respiratory Rate 18 Blood Pressure 126/68 Pulse Oximetry 96 Intake & Output 01/07/18 01/08/18 01/08/18 18:59 06:59 18:59 Intake Total 390 / 390 480 / 480 890 / 890 Balance 390 / 390 480 / 480 890 / 890 Weight 80 kg Intake: IV 150 / 150 250 / 250 Heparin/D5W 25,000 U/250 mL 25, 150 / 150 250 / 250 000 unit In 250 ml @ 1,000 UNITS/HR 10 mls/hr IV.CONT TITRATE PRN Rx#:[id number] Oral 240 / 240 480 / 480 640 / 640 Other: # Voids 2 4 Date of Last Bowel Movement 01/07/18 01/07/18 01/08/18 Narrative: GENERAL: Patient sitting up in bed. Appears comfortable. CARDIOVASCULAR: Normal rate and regular rhythm without murmurs, gallops, or rubs. No crackles. RESPIRATORY: Breath sounds equal bilaterally. No accessory muscle use. GASTROINTESTINAL: Abdomen soft, non-tender, nondistended. MUSCULOSKELETAL: No cyanosis. Trace peripheral edema. Results - Labs CBC & Chem 7: 01/08/18 04:12 01/08/18 04:12 Laboratory Results - last 24 hr 01/08/18 01/08/18 01/08/18 04:12 04:12 04:12 WBC 6.6 RBC 4.99 Hgb 15.0 Hct 45.4 MCV 90.9 MCH 29.9 MCHC 32.9 RDW 16.3 Plt Count 155 MPV 10.0 APTT 75.2 H D Sodium 141 Potassium 4.7 D Chloride 107 Carbon Dioxide 26.5 Anion Gap 8 BUN 19 H Creatinine 0.90 Estimated GFR 65 L Random Glucose 88 Calcium 8.5 Magnesium 2.4 - Procedures CARDIAC CATH WITH LESIONS IN LAD AND CIRCUMFLEX AND VALVE ISSUES WITH MITRAL AND TRICUSPID 8-16 Assessment and Plan - Plan 57 y/o female with a history of breast cancer s/p chemo and radiation, and HTN presented to the ED with complaints of dyspnea for the past 3-4 weeks. Patient found to have new onset CHF. Cardiac cath revealed multivessel disease. Plan for CABG. Acute systolic CHF/New onset CHF/multivessel coronary artery disease. Chest CT reviewed and shows bilateral pleural effusions with mild cardiomegaly BNP 930 - Cont Lasix IV BID, continue metoprolol, lisinopril. - LOW EF AT 30% - Scheduled for surgery Wednesday. Appreciate cardiothoracic surgery assistance. HTN, chronic -Resume home medications lisinopril, monitor vitals, adjust accordingly Breast cancer, chronic, in remission -Resume home anastrozole PO DVT prophylaxis: Heparin.
[2018-01-08] MEDS: Acetaminophen 325 MG Tablet PO PRN (20:31)
[2018-01-09 05:36] LABS: Baso % (Auto) 0.6 % (0.0-2.0); Eos # (Auto) 0.2 th/mm3 (0.0-0.4); Eos % (Auto) 2.6 % (0.0-4.0); Hemoglobin 15.2 gm/dL (11.6-15.3); Lymph # (Auto) 2.5 th/mm3 (1.0-4.8); Lymph % (Auto) 34.1 % (9.0-44.0); Mean Corpuscular HGB Conc 33.1 % (32.0-36.0); Mean Corpuscular Hemoglobin 30.2 pg (27.0-34.0); Mean Corpuscular Volume 91.3 fL (80.0-100.0); Mean Platelet Volume 9.4 fL (7.0-11.0); Mono # (Auto) 0.6 th/mm3 (0.0-0.9); Mono % (Auto) 8.5 % (0.0-8.0); Neut % (Auto) 54.2 % (16.0-70.0); Platelet Count 163 th/mm3 (150-450); Red Blood Count 5.04 mil/mm3 (4.00-5.30); Red Cell Distribution Width 16.4 % (11.6-17.2); White Blood Count 7.3 th/mm3 (4.0-11.0)
[2018-01-09 05:40] LABS: INR 1.2 Ratio; Prothrombin Time 11.7 sec (9.8-11.6)
[2018-01-09 05:57] LABS: Calcium 8.5 mg/dL (8.5-10.1); Carbon Dioxide 23.2 meq/L (21.0-32.0); Magnesium 2.4 mg/dL (1.5-2.5); Potassium 4.5 meq/L (3.5-5.1)
[2018-01-09] MEDS: Heparin Drip 25,000 UNIT/250 ML BAG IV.CONT PRN (08:30)
[2018-01-09] MEDS: amLODIPine 5 MG Tablet PO SCH (08:32)
[2018-01-09] MEDS: Metoprolol Tartrate 25 MG Tablet PO SCH ×2 (08:32→20:26)
[2018-01-09] MEDS: Mupirocin 2% Nasal Oint Topical Syringe EACH NARE SCH ×2 (08:33→20:26)
[2018-01-09] MEDS ORDERED: Lisinopril 5 MG Tablet PO SCH (09:00)
--- NOTE | 2018-01-09 09:41 | P.PNIM ---
Subjective Interval history: No new issues. Doing ok. Physical Exam Vital signs: Vital Signs 01/08/18 10:00 01/08/18 11:00 01/08/18 12:00 Temperature 97.8 F Pulse Rate 74 82 72 Respiratory Rate 18 Blood Pressure 120/68 Pulse Oximetry 01/08/18 13:00 01/08/18 14:00 01/08/18 15:00 Temperature 98 F Pulse Rate 72 78 88 Respiratory Rate 18 Blood Pressure 126/68 Pulse Oximetry 96 01/08/18 16:00 01/08/18 17:00 01/08/18 18:00 Temperature Pulse Rate 78 77 78 Respiratory Rate Blood Pressure Pulse Oximetry 01/08/18 19:00 01/08/18 20:00 01/08/18 21:10 Temperature 97.9 F Pulse Rate 86 102 H 86 Respiratory Rate 14 Blood Pressure 123/59 L Pulse Oximetry 96 01/08/18 22:00 01/08/18 23:00 01/09/18 00:00 Temperature 98.1 F Pulse Rate 72 76 89 Respiratory Rate 16 Blood Pressure 112/51 L Pulse Oximetry 97 01/09/18 01:00 01/09/18 02:00 01/09/18 03:00 Temperature 97.7 F Pulse Rate 83 70 72 Respiratory Rate 14 Blood Pressure 111/55 L Pulse Oximetry 94 L 01/09/18 04:00 01/09/18 05:00 01/09/18 06:13 Temperature Pulse Rate 76 76 105 H Respiratory Rate Blood Pressure Pulse Oximetry 01/09/18 07:00 01/09/18 07:49 Temperature 97.7 F Pulse Rate 80 81 Respiratory Rate 18 Blood Pressure 152/72 H Pulse Oximetry 95 Intake & Output 01/08/18 01/09/18 01/09/18 18:59 06:59 18:59 Intake Total 890 / 890 480 / 480 151.2 / 151.2 Balance 890 / 890 480 / 480 151.2 / 151.2 Weight 82 kg Intake: IV 250 / 250 151.2 / 151.2 Heparin/D5W 25,000 U/250 mL 25, 250 / 250 151.2 / 151.2 000 unit In 250 ml @ 1,000 UNITS/HR 10 mls/hr IV.CONT TITRATE PRN Rx#:[id number] Oral 640 / 640 480 / 480 Other: # Voids 4 3 Date of Last Bowel Movement 01/08/18 01/08/18 01/08/18 Narrative: GENERAL: Patient sitting up in bed. Appears comfortable. CARDIOVASCULAR: Normal rate and regular rhythm without murmurs, gallops, or rubs. No crackles. RESPIRATORY: Breath sounds equal bilaterally. No accessory muscle use. GASTROINTESTINAL: Abdomen soft, non-tender, nondistended. MUSCULOSKELETAL: No cyanosis. Trace peripheral edema. Results - Labs CBC & Chem 7: 01/09/18 05:08 01/09/18 05:08 Laboratory Results - last 24 hr 01/09/18 01/09/18 01/09/18 05:08 05:08 05:08 WBC 7.3 RBC 5.04 Hgb 15.2 Hct 46.0 MCV 91.3 MCH 30.2 MCHC 33.1 RDW 16.4 Plt Count 163 MPV 9.4 Neut % (Auto) 54.2 Lymph % (Auto) 34.1 [place] % (Auto) 8.5 H Eos % (Auto) 2.6 Baso % (Auto) 0.6 Neut # (Auto) 4.0 Lymph # (Auto) 2.5 [place] # (Auto) 0.6 Eos # (Auto) 0.2 Baso # (Auto) 0.0 WBC Differential . Differential Comment Auto diff final PT 11.7 H INR 1.2 APTT Sodium Potassium Chloride Carbon Dioxide Anion Gap BUN Creatinine Estimated GFR Random Glucose Calcium Magnesium Blood Type O Positive Blood Type Recheck Required Antibody Screen Negative MTS Gel Crossmatch See Detail 01/09/18 01/09/18 05:08 05:08 WBC RBC Hgb Hct MCV MCH MCHC RDW Plt Count MPV Neut % (Auto) Lymph % (Auto) [place] % (Auto) Eos % (Auto) Baso % (Auto) Neut # (Auto) Lymph # (Auto) [place] # (Auto) Eos # (Auto) Baso # (Auto) WBC Differential Differential Comment PT INR APTT 63.2 H Sodium 138 Potassium 4.5 Chloride 106 Carbon Dioxide 23.2 Anion Gap 9 BUN 17 Creatinine 0.82 Estimated GFR 72 L Random Glucose 87 Calcium 8.5 Magnesium 2.4 Blood Type Blood Type Recheck Antibody Screen MTS Gel Crossmatch - Procedures CARDIAC CATH WITH LESIONS IN LAD AND CIRCUMFLEX AND VALVE ISSUES WITH MITRAL AND TRICUSPID 8-16 Assessment and Plan - Plan 57 y/o female with a history of breast cancer s/p chemo and radiation, and HTN presented to the ED with complaints of dyspnea for the past 3-4 weeks. Patient found to have new onset CHF. Cardiac cath revealed multivessel disease. Plan for CABG. Acute systolic CHF/New onset CHF/multivessel coronary artery disease. Chest CT reviewed and shows bilateral pleural effusions with mild cardiomegaly BNP 930 - Cont Lasix IV BID, continue metoprolol. Lisinopril on Hold preop. - LOW EF AT 30% - Scheduled for surgery Wednesday. Appreciate cardiothoracic surgery assistance. HTN, chronic -Continue home medications, monitor vitals, adjust accordingly Breast cancer, chronic, in remission -Resume home anastrozole PO DVT prophylaxis: Heparin.
--- NOTE | 2018-01-09 09:47 | P.PNCV ---
- Note Subjective/Hospital Course: 57-year-old female, unsure of the name of her new primary care physician, presented to the emergency room on 01/04/2018 with complaint of fatigue for the past 6 months shortness of breath over the past couple of weeks, mainly with exertion. She has noticed some orthopnea, some dyspnea, mainly if she is climbing some stairs. She works at the [employer] and has had some difficulty at work. She has also noted a 3-4 day period of some lower extremity edema, nonproductive cough, some chest pressure when she lies flat. She underwent echocardiogram where she was found to have an ejection fraction of 30%, moderate to severe mitral regurgitation, moderate to severe tricuspid regurgitation. She underwent heart catheterization today, which showed a 70% left main, IVUS area 5.71, proximal LAD 30%, the mid distal LAD 50%, the diagonal 70%. Her RV pressures are 53/0, PA pressure 51/21 with a wedge pressure of 29. We were consulted to evaluate for coronary artery bypass graft x 2, mitral valve repair, tricuspid valve repair. PAST MEDICAL HISTORY: Includes breast cancer with bilateral mastectomy 2013, followed by chemo and radiation, hypertension. She had a pulmonary embolus after her breast reconstruction, was on anticoagulation for 3 months.. 01/06 no chest pain / had episode of short run VT last night K+ replaced, placed on Ntg for surgery on monday 01/08 Discussed clinical, echo and angiography findings with the patient and her this morning. He has asked about alternative institutions for her cardiac cares, specifically [facility]. He wants to think about the options prior to agree with proceeding with surgery on Wednesday morning. Will reproach them tomorrow morning as to specific decision and proceed accordingly. 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 01/09 Lengthy discussion again. OR in am. Still deciding on type of valve should replacement be necessary Objective: Vital Signs - 24 hr 01/08/18 10:00 01/08/18 11:00 01/08/18 12:00 Temperature 97.8 F Pulse Rate 74 82 72 Respiratory Rate 18 Blood Pressure 120/68 Pulse Oximetry 01/08/18 13:00 01/08/18 14:00 01/08/18 15:00 Temperature 98 F Pulse Rate 72 78 88 Respiratory Rate 18 Blood Pressure 126/68 Pulse Oximetry 96 01/08/18 16:00 01/08/18 17:00 01/08/18 18:00 Temperature Pulse Rate 78 77 78 Respiratory Rate Blood Pressure Pulse Oximetry 01/08/18 19:00 01/08/18 20:00 01/08/18 21:10 Temperature 97.9 F Pulse Rate 86 102 H 86 Respiratory Rate 14 Blood Pressure 123/59 L Pulse Oximetry 96 01/08/18 22:00 01/08/18 23:00 01/09/18 00:00 Temperature 98.1 F Pulse Rate 72 76 89 Respiratory Rate 16 Blood Pressure 112/51 L Pulse Oximetry 97 01/09/18 01:00 01/09/18 02:00 01/09/18 03:00 Temperature 97.7 F Pulse Rate 83 70 72 Respiratory Rate 14 Blood Pressure 111/55 L Pulse Oximetry 94 L 01/09/18 04:00 01/09/18 05:00 01/09/18 06:13 Temperature Pulse Rate 76 76 105 H Respiratory Rate Blood Pressure Pulse Oximetry 01/09/18 07:00 01/09/18 07:49 Temperature 97.7 F Pulse Rate 80 81 Respiratory Rate 18 Blood Pressure 152/72 H Pulse Oximetry 95 Labs: Laboratory Results - last 12 hr 01/09/18 01/09/18 01/09/18 05:08 05:08 05:08 WBC 7.3 RBC 5.04 Hgb 15.2 Hct 46.0 MCV 91.3 MCH 30.2 MCHC 33.1 RDW 16.4 Plt Count 163 MPV 9.4 Neut % (Auto) 54.2 Lymph % (Auto) 34.1 [place] % (Auto) 8.5 H Eos % (Auto) 2.6 Baso % (Auto) 0.6 Neut # (Auto) 4.0 Lymph # (Auto) 2.5 [place] # (Auto) 0.6 Eos # (Auto) 0.2 Baso # (Auto) 0.0 WBC Differential . Differential Comment Auto diff final PT 11.7 H INR 1.2 APTT Sodium Potassium Chloride Carbon Dioxide Anion Gap BUN Creatinine Estimated GFR Random Glucose Calcium Magnesium Blood Type O Positive Blood Type Recheck Required Antibody Screen Negative MTS Gel Crossmatch See Detail 01/09/18 01/09/18 05:08 05:08 WBC RBC Hgb Hct MCV MCH MCHC RDW Plt Count MPV Neut % (Auto) Lymph % (Auto) [place] % (Auto) Eos % (Auto) Baso % (Auto) Neut # (Auto) Lymph # (Auto) [place] # (Auto) Eos # (Auto) Baso # (Auto) WBC Differential Differential Comment PT INR APTT 63.2 H Sodium 138 Potassium 4.5 Chloride 106 Carbon Dioxide 23.2 Anion Gap 9 BUN 17 Creatinine 0.82 Estimated GFR 72 L Random Glucose 87 Calcium 8.5 Magnesium 2.4 Blood Type Blood Type Recheck Antibody Screen MTS Gel Crossmatch Result Diagrams: 01/09/18 05:08 01/09/18 05:08 - Plan (4) CAD (coronary artery disease) Plan: for surgery on Wednesday (4) CAD (coronary artery disease) Qualifiers: Qualified Code(s): I25.10 - Atherosclerotic heart disease of [place] coronary artery without angina pectoris
--- NOTE | 2018-01-09 12:06 | P.PNCA ---
Subjective Interval history: No angina or dyspnea Physical Exam Vital signs: Vital Signs 01/08/18 13:00 01/08/18 14:00 01/08/18 15:00 Temperature 98 F Pulse Rate 72 78 88 Respiratory Rate 18 Blood Pressure 126/68 Pulse Oximetry 96 01/08/18 16:00 01/08/18 17:00 01/08/18 18:00 Temperature Pulse Rate 78 77 78 Respiratory Rate Blood Pressure Pulse Oximetry 01/08/18 19:00 01/08/18 20:00 01/08/18 21:10 Temperature 97.9 F Pulse Rate 86 102 H 86 Respiratory Rate 14 Blood Pressure 123/59 L Pulse Oximetry 96 01/08/18 22:00 01/08/18 23:00 01/09/18 00:00 Temperature 98.1 F Pulse Rate 72 76 89 Respiratory Rate 16 Blood Pressure 112/51 L Pulse Oximetry 97 01/09/18 01:00 01/09/18 02:00 01/09/18 03:00 Temperature 97.7 F Pulse Rate 83 70 72 Respiratory Rate 14 Blood Pressure 111/55 L Pulse Oximetry 94 L 01/09/18 04:00 01/09/18 05:00 01/09/18 06:13 Temperature Pulse Rate 76 76 105 H Respiratory Rate Blood Pressure Pulse Oximetry 01/09/18 07:00 01/09/18 07:49 01/09/18 08:00 Temperature 97.7 F Pulse Rate 80 81 82 Respiratory Rate 18 Blood Pressure 152/72 H Pulse Oximetry 95 01/09/18 09:00 01/09/18 10:00 01/09/18 10:56 Temperature 98.3 F Pulse Rate 84 86 82 Respiratory Rate 18 Blood Pressure 126/59 L Pulse Oximetry 99 Intake & Output 01/08/18 01/09/18 01/09/18 18:59 06:59 18:59 Intake Total 890 / 890 480 / 480 151.2 / 151.2 Balance 890 / 890 480 / 480 151.2 / 151.2 Weight 82 kg Intake: IV 250 / 250 151.2 / 151.2 Heparin/D5W 25,000 U/250 mL 25, 250 / 250 151.2 / 151.2 000 unit In 250 ml @ 1,000 UNITS/HR 10 mls/hr IV.CONT TITRATE PRN Rx#:[id number] Oral 640 / 640 480 / 480 Other: # Voids 4 3 Date of Last Bowel Movement 01/08/18 01/08/18 01/08/18 Narrative: GENERAL: Patient sitting up in bed. Appears comfortable. CARDIOVASCULAR: Normal rate and regular rhythm without murmurs, gallops, or rubs. No crackles. RESPIRATORY: Breath sounds equal bilaterally. No accessory muscle use. GASTROINTESTINAL: Abdomen soft, non-tender, nondistended. MUSCULOSKELETAL: No cyanosis. Trace peripheral edema. Assessment and Plan - Assessment (1) Ischemic cardiomyopathy Code(s): I25.5 - Ischemic cardiomyopathy Status: Acute (2) CAD (coronary artery disease) Code(s): I25.10 - Atherosclerotic heart disease of [place] coronary artery without angina pectoris Status: Acute (3) Mitral regurgitation Code(s): I34.0 - Nonrheumatic mitral (valve) insufficiency Status: Acute (4) Tricuspid regurgitation Code(s): I07.1 - Rheumatic tricuspid insufficiency Status: Acute (5) Acute dyspnea Code(s): R06.00 - Dyspnea, unspecified Status: Acute (6) New onset of congestive heart failure Code(s): I50.9 - Heart failure, unspecified Status: Acute - Plan 1) Acute decompensated systolic heart failure Appears compensated now 2) Ischemic cardiomyopathy EF 30% 3) Left main disease/mitral regurg/tricuspid regurg CT surgery evaluation Discussed with Dr. Fishman who will see in consultation 4) Heparin drip after TR band removed due to left main disease 5) Elevated wedge pressure due to severe MR with V waves 6) Arimidex stopped due to ischemic heart disease This will have to be reevaluated by Heme/Onc on restarting vs change of meds after surgery 7) Will be out of town, please call covering physician for concerns 01/07/2018 K+ low, repletion ordered. Note 6 beat run VT 01:38. Less congested - reduce furosemide to daily add nitropaste for ischemic protection 01/08/2018 Looks stable. K+ better. CABG pending 01/09 Remains hemodynamically stable - for surgery tomorrow (2) CAD (coronary artery disease) Qualifiers: Qualified Code(s): I25.10 - Atherosclerotic heart disease of [place] coronary artery without angina pectoris
[2018-01-09 13:14] LABS: Hemoglobin A1c 5.6 % (4.3-6.0)
[2018-01-09] MEDS: Acetaminophen 325 MG Tablet PO PRN (13:48)
[2018-01-10] MEDS ORDERED: Chlorhexidine Gluconate 2% 1 Pack (2 Cloths) TOPICAL SCH (02:15)
[2018-01-10] MEDS ORDERED: Sodium Chlor 0.9% Inj 500 ML IV.SIG SCH (03:00)
[2018-01-10 04:18] LABS: Anion Gap 11 meq/L (5-15); Aspartate Aminotransferase 30 U/L (15-37); Blood Urea Nitrogen 17 mg/dL (7-18); Calcium 9.2 mg/dL (8.5-10.1); Carbon Dioxide 24.1 meq/L (21.0-32.0); Chloride 104 meq/L (98-107); Glomerular Filtration Rate 57 mL/min (>89); Glucose,Random 98 mg/dL (74-106); Magnesium 2.2 mg/dL (1.5-2.5); Potassium 4.6 meq/L (3.5-5.1); Sodium 139 meq/L (136-145)
[2018-01-10 04:19] LABS: Alanine Aminotransferase 33 U/L (10-53)
[2018-01-10 04:21] LABS: Alkaline Phosphatase 113 U/L (45-117); Total Protein 7.7 g/dL (6.4-8.2)
[2018-01-10] MEDS: Metoprolol Tartrate 25 MG Tablet PO SCH ×3 (06:04→20:46)
[2018-01-10] MEDS ORDERED: ceFAZolin 2 GM Premix Inj 2 GM/50 ML PIGGYBACK IV.SIG ONE (06:34)
[2018-01-10] MEDS ORDERED: Heparin - SQ 10,000 UNITS/ML Vial ONE (06:34)
[2018-01-10] MEDS ORDERED: CUST1000P IRRIGATION ONE (07:37)
[2018-01-10] MEDS ORDERED: POTASSIUM CHLORIDE IV.SIG ONE (07:38)
[2018-01-10] MEDS ORDERED: Heparin 10,000 UNITS/10 ML Vial (for IV use) ONE (07:39)
[2018-01-10] MEDS ORDERED: Albumin Human 25% Inj 0 ML IV.SIG ONE (07:39)
[2018-01-10] MEDS ORDERED: Potassium Chlor 20 mEq Premix 20 MEQ/100 ML PIGGYBACK IV.SIG PRN ×3 (11:30)
[2018-01-10] MEDS ORDERED: Morphine Sulfate Inj 2 MG/ML Vial IV.PUSH PRN (11:30)
[2018-01-10] MEDS ORDERED: Post-op Orders (for Pharmacy) OTHER STA (11:30)
[2018-01-10] MEDS ORDERED: fentaNYL Citrate Inj 100 MCG/2 ML Ampul IV.PUSH PRN (11:30)
[2018-01-10] MEDS ORDERED: Metoprolol Inj 5 MG/5 ML Vial IV.PUSH PRN (11:30)
[2018-01-10] MEDS ORDERED: Magnesium Sulfate Inj 2 GM in Sodium Chlor 0.9% Inj 96 ML IV.SIG PRN ×4 (11:30)
[2018-01-10] MEDS ORDERED: RESP: Racemic Epinephrine 2.25% 0.5 ML Neb NEB PRN (11:30)
[2018-01-10] MEDS ORDERED: Clevidipine Inj 25 MG/50 ML VIAL IV.CONT PRN (11:30)
[2018-01-10] MEDS ORDERED: Phenylephrine Inj 40 MG in Sodium Chlor 0.9% Inj 496 ML IV.CONT PRN (11:30)
[2018-01-10] MEDS ORDERED: Insulin Regular (For Infusion) 100 UNIT in Sodium Chlor 0.9% Inj 99 ML IV.CONT PRN (11:30)
[2018-01-10] MEDS ORDERED: Calcium Chloride Inj 1 GM/10 ML Syringe IV.PUSH PRN (11:30)
[2018-01-10] MEDS ORDERED: Calcium Chloride Inj 1 GM in Sodium Chlor 0.9% Inj 100 ML IV.SIG PRN (11:30)
[2018-01-10] MEDS ORDERED: Dexmedetomidine Inj 200 MCG in Sodium Chlor 0.9% Inj 48 ML IV.CONT PRN (11:30)
[2018-01-10] MEDS ORDERED: hydrALAZINE HCl Inj 20 MG/ML Vial IV.PUSH PRN (11:30)
[2018-01-10] MEDS ORDERED: Dextrose 50% in Water 50 ML Vial IV.PUSH PRN (11:30)
--- NOTE | 2018-01-10 11:45 | P.OP ---
Date of procedure: 01/10/18 Anesthesia: LIAMA Surgeon: Jackie Fishman MD Operation and Findings: PREPROCEDURE DIAGNOSES 1. Severe Left Main Coronary Artery Disease. 2. Severe mitral insufficiency 3. Severe tricuspid insufficiency 4. 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 Urgent Clampless Off-pump Coronary Artery Bypass Grafting x 2 with Left Internal Mammary Artery (SAMS) to Left Anterior Descending (LAD), reverse saphenous vein graft to Obtuse Marginal branch of the Left Circumflex artery 2. Right leg Endoscopic Vein [place] 3. Intraoperative Vein Mapping. SURGEON Jackie Fishman MD MAIL ORDER CLERK RONALD Johnston ANESTHESIA General endotracheal MATERIAL EXPEDITOR OLENA Van MD PREPARATION ChloraPrep. COUNTS Needle, sponge, and instrument counts were correct. DRAINS Two 32-Arabic mediastinal tubes. COMPLICATIONS None. INDICATIONS FOR PROCEDURE The patient is a 57-year-old presenting with shortness of breath and fatigue. Patient was noted to have ostial left main coronary artery disease with associated severe mitral and tricuspid insufficiency. Chest CT did reveal a very heavily calcified ascending aorta and the echo demonstrated severe left ventricular dysfunction. The patient is being brought to the operating room for surgical correction of the above pathology. PROCEDURE Patient was brought to the operating room and placed supine on the OR table. Following the induction of adequate general endotracheal anesthesia and placement of appropriate monitoring devices, intraoperative vein mapping was performed which revealed good-caliber conduit in the right thigh. Intraoperative ARLETTE performed revealed severe left ventricular dysfunction with estimated ejection fraction of 10-15% and global hypokinesis with septal akinesis. This was in the setting of severe mitral and tricuspid regurgitation and dilated cardiomyopathy. The patient was then prepped and draped in standard sterile fashion. Next, 2500 units of intravenous heparin was given. The right greater saphenous vein was harvested endoscopically. This appeared to be a useable-caliber conduit. Simultaneously, a median sternotomy was performed and the left internal mammary artery dissected free off the posterior sternal table. The patient was systemically heparinized and anticoagulation monitored by serial ACT measurements. The internal mammary artery had excellent pulsatile flow in it and was a good-caliber conduit. The pericardium was then divided in the midline, the cradle created and targets analyzed. 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 There was no area on the aorta to put a cross-clamp on and a very small area for possible performance of the proximal anastomosis. Given the above findings it was decided that I would proceed with a off-pump coronary bypass grafting to alleviate the left main stenosis and possibly address the valve pathology at a later date percutaneously. At this point, all anastomoses were performed in a beating-heart fashion using the [place] stabilizing system. The left internal mammary artery was anastomosed to the mid LAD (2 mm) in an end-to-side fashion using 7-0 Prolene. Segment of saphenous vein graft was then anastomosed to the OM1 (2 mm) in an end-to-side fashion using 7-0 Prolene. The proximal anastomosis was then constructed to the ascending aorta in a clamp less running manner using 6-0 Prolene and a Heartstring device. All anastomotic sites were inspected and appeared to be hemostatic and patent. Protamine solution was given. Strict hemostasis was assured. The closure was undertaken. 2 chest tubes were placed. The pericardium was reapproximated in the midline. The sternum was approximated using sternal wires. The muscular and fascial layer were then closed in 3 layers. The endoscopic vein harvest site was closed in 2 layers. The patient tolerated the procedure well and was transferred to CVICU in stable condition.
[2018-01-10] MEDS ORDERED: Dextrose 50% in Water Syringe 50 ML ONE (11:57)
[2018-01-10] MEDS ORDERED: ceFAZolin Inj 2,000 MG in Sodium Chlor 0.9% Inj 80 ML IV.SIG SCH (12:00)
[2018-01-10] MEDS ORDERED: fentaNYL Citrate Inj 250 MCG/5 ML Ampul ONE (12:37)
--- NOTE | 2018-01-10 13:02 | XR ---
EXAM DATE: 01/10/2018 12:56 PM EDT AGE/SEX: 57 years / Female INDICATIONS: Post op CABG CLINICAL DATA: This is the patient's subsequent encounter. Patient reports that signs and symptoms h ave been present for 1 week and indicates a pain score of Nonresponsive. MEDICAL/SURGICAL HISTORY: Cardiovascular disease. Carcinoma, breast. pulmonary embolus CABG. mastectomy, infusaport and removal COMPARISON: [facility], CHEST 1V SINGLE AP, 01/04/2018. . FINDINGS: The patient is status post sternotomy. The ET tube, NG tube, right internal jugular central line, med iastinal drain, and left chest tube are well placed. A pneumothorax is not seen. Clips are seen in th e axillary regions bilaterally. The heart size is mildly enlarged. There some minimal patchy density seen at the lung bases and in the left perihilar region. CONCLUSION: Tubes and lines in good position. Suspected minimal atelectasis at the bases and around the left perihilar region. Electronically signed by: Gabriel Herman MD 01/10/2018 1:00 PM EDT
[2018-01-10] MEDS: Mupirocin 2% Nasal Oint Topical Syringe EACH NARE SCH (13:22)
--- NOTE | 2018-01-10 13:28 | P.PNIM ---
Subjective Interval history: Patient seen postoperatively. She is sedated and still intubated Physical Exam Vital signs: Vital Signs 01/09/18 14:00 01/09/18 15:00 01/09/18 16:00 Temperature Pulse Rate 101 H 84 79 Respiratory Rate Blood Pressure Pulse Oximetry 01/09/18 16:40 01/09/18 17:00 01/09/18 18:00 Temperature 97.9 F Pulse Rate 81 79 81 Respiratory Rate 17 Blood Pressure 141/65 H Pulse Oximetry 96 01/09/18 19:00 01/09/18 23:00 01/10/18 01:42 Temperature 98.3 F 97.9 F Pulse Rate 84 76 77 Respiratory Rate 18 18 Blood Pressure 144/63 H 128/60 Pulse Oximetry 97 97 01/10/18 03:00 01/10/18 06:24 01/10/18 12:28 Temperature 98 F Pulse Rate 77 85 Respiratory Rate 16 14 Blood Pressure 127/59 L Pulse Oximetry 96 96 01/10/18 12:34 01/10/18 12:35 01/10/18 13:16 Temperature 96.8 F L Pulse Rate 90 89 90 Respiratory Rate 14 Blood Pressure 100/53 L Pulse Oximetry 96 Intake & Output 01/09/18 01/10/18 01/10/18 18:59 06:59 18:59 Intake Total 491.2 / 491.2 280 / 280 2830 / 2830 Output Total 350 / 350 600 / 600 300 / 300 Balance 141.2 / 141.2 -320 / -320 2530 / 2530 Intake: IV 151.2 / 151.2 1100 / 1100 Heparin/D5W 25,000 U/250 mL 25, 151.2 / 151.2 000 unit In 250 ml @ 1,000 UNITS/HR 10 mls/hr IV.CONT TITRATE PRN Rx#:[id number] LR 1000 mL Inj 1,000 ML @ 30 1000 / 1000 mls/hr IV.SIG .Q24H DENIZ Rx#: [id number] Ancef Inj 2,000 MG In NS Inj 80 100 / 100 ML @ 200 mls/hr IV.SIG TODDLER TEACHER DENIZ Rx#:[id number] Oral 340 / 340 280 / 280 Anesthesia Amount 1500 / 1500 Cell Saver Amount 230 / 230 Output: Urine 350 / 350 600 / 600 Urine Amount (Catheter) 300 / 300 Indwelling Temp Sensing 300 / 300 Catheter Other: # Voids 2 Date of Last Bowel Movement 01/09/18 01/09/18 01/09/18 # Bowel Movements 1 0 Narrative: GENERAL: Sedated and intubated. CARDIOVASCULAR: Normal rate and regular rhythm RESPIRATORY: Breath sounds equal bilaterally. GASTROINTESTINAL: Abdomen soft, non-tender, nondistended. MUSCULOSKELETAL: No cyanosis. - Urinary Catheter Management Indwelling Temp Sensing Catheter Cath placed during this visit: yes Reason for continuing: Hourly intake/output Insertion date: 01/10/18 Insertion time: 07:58 Results - Labs CBC & Chem 7: 01/09/18 05:08 01/10/18 03:34 Laboratory Results - last 24 hr 01/09/18 01/09/18 01/10/18 05:08 05:08 03:34 Sodium 139 Potassium 4.6 Chloride 104 Carbon Dioxide 24.1 Anion Gap 11 BUN 17 Creatinine 1.00 Estimated GFR 57 L Random Glucose 98 Hemoglobin A1c 5.6 Calcium 9.2 Magnesium 2.2 Total Bilirubin 0.5 AST 30 ALT 33 Alkaline Phosphatase 113 Total Protein 7.7 D Albumin 4.0 Blood Type O Positive Blood Type Recheck Required Antibody Screen Negative MTS Gel Crossmatch See Detail - Imaging Impressions Chest X-Ray 01/10/18 11:30 CONCLUSION: Tubes and lines in good position. Suspected minimal atelectasis at the bases and around the left perihilar region. - Procedures CARDIAC CATH WITH LESIONS IN LAD AND CIRCUMFLEX AND VALVE ISSUES WITH MITRAL AND TRICUSPID 8-16 Assessment and Plan - Plan 57 y/o female with a history of breast cancer s/p chemo and radiation, and HTN presented to the ED with complaints of dyspnea for the past 3-4 weeks. Patient found to have new onset CHF. Cardiac cath revealed multivessel disease. S/P CABG. Acute systolic CHF/New onset CHF/multivessel coronary artery disease. Chest CT reviewed and shows bilateral pleural effusions with mild cardiomegaly BNP 930 - S/P Coronary Artery Bypass Grafting x 2 - LOW EF AT 30% - Appreciate cardiothoracic surgery assistance. - Postsurgical plan per CT surgery. - Wean off vent per protocol. - Amiodarone, Plavix, Metoprolol HTN, chronic -Continue home medications, monitor vitals, adjust accordingly Breast cancer, chronic, in remission -Resume home anastrozole PO DVT prophylaxis: Heparin.
[2018-01-10] MEDS: Ketorolac Inj 30 MG/ML (IVP) Vial IV.PUSH PRN (15:37)
[2018-01-10] MEDS ORDERED: ceFAZolin 2 GM Premix Inj 2 GM/100 ML BAG IV.SIG SCH (16:00)
[2018-01-10] MEDS: ceFAZolin Inj 2,000 MG in Sodium Chlor 0.9% Inj 100 ML IV.SIG SCH (16:09)
--- NOTE | 2018-01-10 19:28 | P.CONCC ---
History of Present Illness Service: Critical Care Medicine Consult date: 01/10/18 Requesting Physician: Jackie Fishman Reason for Consult: perioperative mangagement of hemodynamics Primary Care Provider: Maryellen Sutton MD Family Provider: Maryellen Sutton MD Chief Complaint: dyspnea History of Present Illness: This is a 57yF who presented with SOB originally and was diagnosed with new ischemic cardiomyopathy EF < 30%. In addition to this she has mod-to-sev mitral regurgitation and [id number] Tricuspid regurgitation and a porcelain aorta. She underwent off-pump CABG x 2 (SAMS-->LAD, SVG-->OM). she tolerated the procedure well. she was extubated on pathway. chest tubes have remained dry. uop adequate. lactate cleared. off vasopressors. patient is arousing from anesthesia having recently been extubated and full ROS unobtainable. Review of Systems unobtainable due to mental status (arousing from anesthesia) PMFSH - History History Provided By: Patient - Medical History Medical History: Medical History (Last Updated 01/04/18 @ 16:20 by Leatha Arambula) Breast cancer Hypertension Pulmonary embolism - Surgical History Surgical History: Surgical History (Last Reviewed 01/04/18 @ 16:20 by Leatha Arambula) H/O mastectomy History of removal of Port-a-Cath - Family History Family History: Family History (Last Updated 01/04/18 @ 20:49 by SAMIA Rojas) Mother Breast cancer HTN (hypertension) - Tobacco History Second Hand Smoke Exposure: No Smoking Status: Never smoker - Alcohol History How Often Do You Have a Drink Containing Alcohol: 2 to 3 times a week - Substance Use History Substance History: No History of Abuse - Travel History Recent Travel in the [facility] Within the Last 8 Weeks: No Recent Travel Out of the Country Within the Last 8 Weeks: No - Immunization History Tetanus Immunization: <5 Years Hx Influenza Vaccine This Season: No Medications and Allergies Active Medications: Active Medications Acetaminophen (Tylenol) 650 mg PO Q4H PRN PRN Reason: PAIN 1-10 AND/OR FEVER >101F Last Admin: 01/09/18 13:48 Dose: 650 mg Hydrocodone Bitart/Acetaminophen ([place] 5/325) 1 tab PO Q3H PRN PRN Reason: PAIN SCALE 1 TO 5 Al Hydroxide/Mg Hydroxide (Milk Of Magnesia Liq) 30 ml PO Q12H PRN PRN Reason: Mild Constipation Albuterol (Duoneb Neb (Prn)) 1 ampul NEB Q2HR NEB PRN PRN Reason: WHEEZING Albuterol (Duoneb Neb (Jony)) 1 ampul NEB Q6HR NEB [facility] Last Admin: 01/10/18 16:47 Dose: 1 ampul Amiodarone HCl (Cordarone) 200 mg PO Q12HR [facility] Anastrozole (Arimidex) 1 mg PO DAILY [facility] Last Admin: 01/06/18 09:40 Dose: 1 mg Aspirin (Aspirin Chew) 81 mg PO DAILY [facility] Calcium Chloride (Calcium Chloride Inj) 0.5 gm IV.PUSH UNSCH PRN PRN Reason: SEE LABEL COMMENTS Chlorhexidine Gluconate (Hibiclens 4% Topical) 1 applicatio TOPICAL BEREAVEMENT PROGRAM COORDINATOR [facility] Stop: 01/12/18 15:34 Chlorhexidine Gluconate (Chlorhexidine 2% Cloth) 3 pack TOPICAL BEREAVEMENT PROGRAM COORDINATOR [facility] Stop: 01/13/18 02:10 Clopidogrel Bisulfate (Plavix) 75 mg PO DAILY [facility] Sodium Chloride 77.5 ml/Papaverine HCl 60 mg/Nitroglycerin 100 mcg/Diltiazem HCl 100 mg 0 ml IRRIGATION BEREAVEMENT PROGRAM COORDINATOR [facility] Stop: 01/12/18 15:34 Last Admin: 01/10/18 09:32 Dose: 1 irrig.soln Sodium Chloride 500 ml/ (Cefazolin Sodium 500 mg) 0 ml IRRIGATION BEREAVEMENT PROGRAM COORDINATOR [facility] Stop: 01/12/18 15:36 Last Admin: 01/10/18 09:33 Dose: 1 irrig.soln Dextrose (D50w Vial) 50 ml IV.PUSH UNSCH PRN PRN Reason: PER HYPOGLYCEMIA PROTOCOL Epinephrine (Racepinephrine 2.25% Neb) 0.5 ml NEB UNSCH X1 PRN PRN Reason: STRIDOR Fentanyl Citrate (Fentanyl Inj) 25 mcg IV.PUSH Q1H PRN PRN Reason: BREAKTHROUGH PAIN Hydralazine HCl (Apresoline Inj) 10 mg IV.PUSH Q4H PRN PRN Reason: SEE LABEL COMMENTS Lactated Ringer's (Lr 1000 Ml Inj) 1,000 mls @ 30 mls/hr IV.SIG .Q24H [facility] Stop: 01/13/18 02:10 Last Infusion: 01/10/18 17:00 Dose: 30 mls/hr Sodium Chloride (Ns Inj) 500 mls @ 30 mls/hr IV.SIG .Q10H JONY Stop: 01/13/18 02:10 Acetaminophen (Ofirmev Inj) 1,000 mg in 100 mls @ 400 mls/hr IV.SIG Q6H JONY Stop: 01/11/18 09:14 Last Infusion: 01/10/18 15:31 Dose: Infused Calcium Chloride 1 gm/ Sodium (Chloride) 110 mls @ 100 mls/hr IV.SIG PRN PRN PRN Reason: SEE LABEL COMMENTS Insulin Human Regular 100 unit (/ Sodium Chloride) 100 mls @ 3 mls/hr IV.CONT TITRATE PRN; Protocol PRN Reason: See Protocol Last Titration: 01/10/18 17:55 Dose: 6 units/hr, 6 mls/hr Lactated Ringer's (Lr 1000 Ml Inj) 500 mls @ 500 mls/hr IV.SIG .Q1H PRN PRN Reason: SEE LABEL COMMENTS Magnesium Sulfate Inj 2 gm/ (Sodium Chloride) 100 mls @ 50 mls/hr IV.SIG PRN PRN PRN Reason: SEE LABEL COMMENTS Magnesium Sulfate Inj 2 gm/ (Sodium Chloride) 100 mls @ 50 mls/hr IV.SIG PRN PRN PRN Reason: SEE LABEL COMMENTS Potassium Chloride (Kcl 20 Meq Premix Inj) 20 meq in 100 mls @ 50 mls/hr IV.SIG PRN PRN PRN Reason: SEE LABEL COMMENTS Potassium Chloride (Kcl 20 Meq Premix Inj) 20 meq in 100 mls @ 50 mls/hr IV.SIG PRN PRN PRN Reason: SEE LABEL COMMENTS Albumin Human (Buminate 5% Inj) 250 mls @ 250 mls/hr IV.SIG UNSCH PRN PRN Reason: SEE LABEL COMMENTS Clevidipine (Cleviprex Inj) 25 mg in 50 mls @ 2 mls/hr IV.CONT TITRATE PRN; Protocol PRN Reason: Per protocol Dexmedetomidine HCl 200 mcg/ (Sodium Chloride) 50 mls @ 4.1 mls/hr IV.CONT TITRATE PRN; Protocol PRN Reason: Per Protocol Last Titration: 01/10/18 13:30 Dose: Infused Phenylephrine HCl 40 mg/ (Sodium Chloride) 500 mls @ 30 mls/hr IV.CONT TITRATE PRN; Protocol PRN Reason: See Protocol Potassium Chloride (Kcl 20 Meq Premix Inj) 20 meq in 100 mls @ 50 mls/hr IV.SIG PRN PRN PRN Reason: SEE LABEL COMMENTS Epinephrine HCl 2 mg/ Dextrose 250 mls @ 15 mls/hr IV.CONT TITRATE PRN; Protocol PRN Reason: Per Protocol Last Titration: 01/10/18 16:02 Dose: 0 mcg/min, 0 mls/hr Cefazolin Sodium 2,000 mg/ (Sodium Chloride) 120 mls @ 240 mls/hr IV.SIG Q8H [facility] Stop: 01/12/18 00:29 Last Infusion: 01/10/18 17:00 Dose: Infused Ketorolac Tromethamine (Toradol Inj) 15 mg IV.PUSH Q6H PRN PRN Reason: SEE LABEL COMMENTS Stop: 01/12/18 11:29 Last Admin: 01/10/18 15:37 Dose: 15 mg Meperidine HCl (Demerol Inj) 12.5 mg IV.PUSH Q4H PRN PRN Reason: SHIVERING Metoprolol Tartrate (Lopressor) 12.5 mg PO BID [facility] Last Admin: 01/10/18 13:22 Dose: Not Given Metoprolol Tartrate (Lopressor Inj) 2.5 mg IV.PUSH Q1H PRN PRN Reason: SEE LABEL COMMENTS Morphine Sulfate (Morphine Inj) 1 mg IV.PUSH Q10M PRN PRN Reason: PAIN SCALE 1 TO 5 Nitroglycerin (Nitro-Bid 2% Oint) 1 inch TOPICAL Q8HR [facility] Last Admin: 01/10/18 14:47 Dose: Not Given Ondansetron HCl (Zofran Inj) 4 mg IV.PUSH Q6H PRN PRN Reason: NAUSEA OR VOMITING Ondansetron HCl (Zofran Inj) 4 mg IV.PUSH Q6H PRN PRN Reason: NAUSEA OR VOMITING Pantoprazole Sodium (Protonix) 40 mg PO DAILY@06 [facility] Phenylephrine HCl (Neosynephrine Inj) 0.1 mg IV.PUSH UNSCH PRN PRN Reason: SEE LABEL COMMENTS Potassium Chloride (K-Dur) 20 meq PO DAILY [facility] Last Admin: 01/10/18 13:22 Dose: Not Given Potassium Chloride (K-Dur) 20 meq PO UNSCH PRN PRN Reason: SEE LABEL COMMENTS Potassium Chloride (K-Dur) 40 meq PO UNSCH PRN PRN Reason: SEE LABEL COMMENTS Povidone Iodine (Betadine 5% Antisepsis Kit) 1 applicatio EACH NARE BEREAVEMENT PROGRAM COORDINATOR [facility] Stop: 01/13/18 02:10 Sodium Bicarbonate (Sodium Bicarbonate 8.4% Inj) 100 meq IV.PUSH UNSCH PRN PRN Reason: SEE LABEL COMMENTS Sodium Bicarbonate (Sodium Bicarbonate 8.4% Inj) 50 meq IV.PUSH UNSCH PRN PRN Reason: SEE LABEL COMMENTS Sodium Chloride (Ns Flush) 2 ml IV.FLUSH PRN PRN PRN Reason: FLUSH AFTER USING IV ACCESS Sodium Chloride (Ns Flush) 2 ml IV.FLUSH BID JONY Temazepam (Restoril) 15 mg PO HS PRN PRN Reason: INSOMNIA Terbutaline Sulfate (Brethine Inj) 1 mg SQ ONCE PRN PRN Reason: Extravasation Terbutaline Sulfate (Brethine Inj) 1 mg SQ UNSCH PRN PRN Reason: For Extravasation Terbutaline Sulfate (Brethine Inj) 1 mg SQ UNSCH PRN PRN Reason: For Extravasation Allergies Allergy/AdvReac Type Severity Reaction Status Date / Time No Known Allergies Allergy Unverified 01/04/18 15:36 Home Medications Medication Instructions Recorded Confirmed Type anastrozole 1 mg PO DAILY 01/04/18 01/04/18 History lisinopril 40 mg PO DAILY 01/04/18 01/04/18 History Physical Exam Vital signs: Vital Signs 01/09/18 23:00 01/10/18 01:42 01/10/18 03:00 Temperature 36.6 C 36.6 C Pulse Rate 76 77 77 Respiratory Rate 18 16 Blood Pressure 128/60 127/59 L Pulse Oximetry 97 96 01/10/18 06:24 01/10/18 12:28 01/10/18 12:30 Temperature 36.1 C L Pulse Rate 85 Respiratory Rate 14 Blood Pressure Pulse Oximetry 96 01/10/18 12:34 01/10/18 12:35 01/10/18 13:16 Temperature 36.0 C L Pulse Rate 90 89 90 Respiratory Rate 14 Blood Pressure 100/53 L Pulse Oximetry 96 01/10/18 13:25 01/10/18 14:05 01/10/18 15:03 Temperature 37.1 C Pulse Rate 82 Respiratory Rate 17 18 20 Blood Pressure 109/53 L Pulse Oximetry 98 97 96 01/10/18 15:04 01/10/18 15:36 01/10/18 16:48 Temperature Pulse Rate 86 Respiratory Rate 20 16 Blood Pressure Pulse Oximetry 98 98 01/10/18 17:04 01/10/18 17:47 Temperature 37.7 C H Pulse Rate 85 83 Respiratory Rate 17 Blood Pressure 119/56 L Pulse Oximetry 96 Intake & Output 01/10/18 01/10/18 01/11/18 06:59 18:59 06:59 Intake Total 280 / 280 3639 / 3639 Output Total 600 / 600 300 / 300 Balance -320 / -320 3339 / 3339 Intake: IV 1908 / 1908 Precedex Inj 200 MCG In NS Inj 50 / 50 48 ML @ 0.2 MCG/KG/HR 4.1 mls/ hr IV.CONT TITRATE PRN Rx#: [id number] EPINEPHrine (1:1000) Inj 2 MG / In D5W Inj 248 ML @ 2 MCG/MIN 15 mls/hr IV.CONT TITRATE PRN Rx#:[id number] NovoLIN R (IV Infusion) 100 17 / 17 UNIT In NS Inj 99 ML @ 3 UNITS/ HR 3 mls/hr IV.CONT TITRATE PRN Rx#:[id number] Ofirmev Inj 1,000 mg In 100 ml 100 / 100 @ 400 mls/hr IV.SIG Q6H JONY Rx# :[id number] LR 1000 mL Inj 1,000 ML @ 30 1500 / 1500 mls/hr IV.SIG .Q24H JONY Rx#: [id number] Ancef Inj 2,000 MG In NS Inj 220 / 220 100 ML @ 240 mls/hr IV.SIG Q8H JONY Rx#:[id number] Oral 280 / 280 Anesthesia Amount 1500 / 1500 Cell Saver Amount 230 / 230 Output: Urine 600 / 600 Urine Amount (Catheter) 300 / 300 Indwelling Temp Sensing 300 / 300 Catheter Other: # Voids 2 Date of Last Bowel Movement 01/09/18 01/09/18 # Bowel Movements 0 Narrative: gen: middle-aged female, lying in bed, arousing from anesthesia. heent: nc. at. perrl. mmm. neck: no jvd. right IJ introducer sheath in place, site c/d/i. chest: midline sternal wound with dressing in place, c/d/i. 2 chest tubes exit subxiphoid with minimal amount of sanguinous output. nc o2. cv: normal rate, regular rhythm. sinus. CVP 12. abd: soft, nontender, nondistended. no guarding. extr: leg wrapped in jong bandage, site c/d/i. extremities warm and adequately perfused. neuro: arousing from anesthesia. moves all extremities. follows commands. - Urinary Catheter Management Indwelling Temp Sensing Catheter Cath placed during this visit: yes Reason for continuing: Hourly intake/output Insertion date: 01/10/18 Insertion time: 07:58 Assessment and Plan - Assessment and Plan Plan: Assessment: 57yF POD 0 s/p Off pump CABG x 2 (SAMS --> LAD, SVG --> OM). remain in ICU. given severe valvulopathy, high risk for decompensation or morbidity during this hospitalization. s/p off pump CABG (SAMS-->LAD, SVG-->OM) 01/10 - close uop monitoring - close chest tube output monitoring - frequent neurovascular checks - trend abgs moderate to severe mitral regurgitation moderate to severe trucuspid regurgitation - gentle ivf resuscitation POD 0. - early diuresis may be best. ischemic cardiomyopathy, EF < 30% - gentle fluid resuscitation POD 0 with early and aggressive diuresis once capillary leak syndrome resolves. I.S. to bedside aggressive pulmonary toilet early mobilization advance diet as tolerated. AM CBC, BMP Critical care medicine will continue to follow along with you while patient is in CVICU.
[2018-01-10] MEDS ORDERED: Aminocaproic Acid Inj 5,000 MG/20 ML Vial IV.CONT ONE (19:39)
[2018-01-10] MEDS ORDERED: Heparin - SQ 10,000 UNITS/ML Vial SQ ONE (19:39)
[2018-01-10] MEDS ORDERED: Sodium Chlor 0.9% Inj 500 ML IV.SIG ONE (19:39)
[2018-01-10] MEDS ORDERED: Dexmedetomidine Inj 200 MCG/2 ML Vial IV.CONT ONE (19:39)
[2018-01-10] MEDS ORDERED: Sodium Chlor 0.9% Inj 100 ML IV.SIG ONE (19:39)
[2018-01-10] MEDS ORDERED: Calcium Chloride Inj 1 GM/10 ML Syringe IV.CONT ONE (19:39)
[2018-01-10] MEDS ORDERED: Phenylephrine/NS 1000 MCG/10ML Syringe IV.PUSH ONE (19:39)
[2018-01-10] MEDS ORDERED: Protamine Sulfate Inj 250 MG/25 ML Vial IV.CONT ONE (19:39)
[2018-01-10] MEDS: Amiodarone 200 MG Tablet PO SCH (20:46)
[2018-01-11] MEDS: ceFAZolin Inj 2,000 MG in Sodium Chlor 0.9% Inj 100 ML IV.SIG SCH ×4 (00:08→23:01)
[2018-01-11] MEDS: Albumin Human 5% Inj 250 ML IV.SIG PRN ×2 (03:16→08:33)
--- NOTE | 2018-01-11 05:43 | XR ---
EXAM DATE: 01/11/2018 5:07 AM EDT AGE/SEX: 57 years / Female INDICATIONS: Short of breath. CLINICAL DATA: This is the patient's subsequent encounter. Patient reports that signs and symptoms h ave been present for 1 week and indicates a pain score of 0/10. MEDICAL/SURGICAL HISTORY: Cardiovascular disease. Carcinoma, breast. . pulmonary embolus CABG. Mastectomy, infusaport and removal COMPARISON: [facility], CHEST 1V SINGLE AP, 01/10/2018. . FINDINGS: A single AP view of the chest demonstrates worsening consolidation within the lung bases. This is mor e pronounced on the left. Mild cardiomegaly. No effusions. 2 thoracostomy tubes seen on the left. No pneumothorax. Right-sided central line. Median sternotomy wires. CONCLUSION: Worsening bibasilar consolidations. Electronically signed by: Byron Garnica MD 01/11/2018 5:42 AM EDT
[2018-01-11 05:51] LABS: Hematocrit 43.9 % (35.0-46.0); Hemoglobin 14.4 gm/dL (11.6-15.3); Mean Corpuscular HGB Conc 32.9 % (32.0-36.0); Mean Corpuscular Hemoglobin 30.2 pg (27.0-34.0); Mean Corpuscular Volume 91.8 fL (80.0-100.0); Mean Platelet Volume 9.9 fL (7.0-11.0); Platelet Count 102 th/mm3 (150-450); Red Blood Count 4.78 mil/mm3 (4.00-5.30); Red Cell Distribution Width 16.5 % (11.6-17.2); White Blood Count 10.7 th/mm3 (4.0-11.0)
[2018-01-11 06:13] LABS: Calcium 8.2 mg/dL (8.5-10.1); Carbon Dioxide 22.3 meq/L (21.0-32.0); Magnesium 2.1 mg/dL (1.5-2.5); Potassium 5.3 meq/L (3.5-5.1)
[2018-01-11] MEDS ORDERED: Dextrose 50% in Water 50 ML Vial IV.PUSH PRN (08:33)
[2018-01-11] MEDS ORDERED: Sod Phosphate/Sod Biphosphate (Adult) Enema 133 ML Bottle RECTAL PRN (08:33)
[2018-01-11] MEDS ORDERED: Bisacodyl 10 MG Supp RECTAL PRN (08:33)
--- NOTE | 2018-01-11 08:51 | P.PNCV ---
- Note Subjective/Hospital Course: 57-year-old female, unsure of the name of her new primary care physician, presented to the emergency room on 01/04/2018 with complaint of fatigue for the past 6 months shortness of breath over the past couple of weeks, mainly with exertion. She has noticed some orthopnea, some dyspnea, mainly if she is climbing some stairs. She works at the [employer] and has had some difficulty at work. She has also noted a 3-4 day period of some lower extremity edema, nonproductive cough, some chest pressure when she lies flat. She underwent echocardiogram where she was found to have an ejection fraction of 30%, moderate to severe mitral regurgitation, moderate to severe tricuspid regurgitation. She underwent heart catheterization today, which showed a 70% left main, IVUS area 5.71, proximal LAD 30%, the mid distal LAD 50%, the diagonal 70%. Her RV pressures are 53/0, PA pressure 51/21 with a wedge pressure of 29. We were consulted to evaluate for coronary artery bypass graft x 2, mitral valve repair, tricuspid valve repair. PAST MEDICAL HISTORY: Includes breast cancer with bilateral mastectomy 2013, followed by chemo and radiation, hypertension. She had a pulmonary embolus after her breast reconstruction, was on anticoagulation for 3 months.. 01/06 no chest pain / had episode of short run VT last night K+ replaced, placed on Ntg for surgery on monday 01/08 Discussed clinical, echo and angiography findings with the patient and her this morning. He has asked about alternative institutions for her cardiac cares, specifically [facility]. He wants to think about the options prior to agree with proceeding with surgery on Wednesday morning. Will reproach them tomorrow morning as to specific decision and proceed accordingly. 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 01/09 Lengthy discussion again. OR in am. Still deciding on type of valve should replacement be necessary 01/10 surgery : 1. Severe Left Main Coronary Artery Disease. 2. Severe mitral insufficiency 3. Severe tricuspid insufficiency 4. 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 Urgent Clampless Off-pump Coronary Artery Bypass Grafting x 2 with Left Internal Mammary Artery (SAMS) to Left Anterior Descending (LAD), reverse saphenous vein graft to Obtuse Marginal branch of the Left Circumflex artery 2. Right leg Endoscopic Vein [place] extubated after surgery crystalloid 2500cc, 230cc cell saver 01/11 pt on nasal cannula BP labile , hold on BB for now and diuresis re-eval for later today ASA, statin , plavix will need JESSICA/ eval for Life vest / eval for Mitral Clip after recovery 4-6 weeks discussed with pt and Objective: Vital Signs - 24 hr 01/10/18 12:28 01/10/18 12:30 01/10/18 12:34 Temperature 96.9 F L 96.8 F L Pulse Rate 90 Respiratory Rate 14 14 Blood Pressure 100/53 L Pulse Oximetry 96 96 01/10/18 12:35 01/10/18 13:16 01/10/18 13:25 Temperature Pulse Rate 89 90 Respiratory Rate 17 Blood Pressure Pulse Oximetry 98 01/10/18 14:05 01/10/18 15:03 01/10/18 15:04 Temperature 98.8 F Pulse Rate 82 Respiratory Rate 18 20 20 Blood Pressure 109/53 L Pulse Oximetry 97 96 01/10/18 15:36 01/10/18 16:48 01/10/18 17:04 Temperature 99.8 F H Pulse Rate 86 85 Respiratory Rate 16 17 Blood Pressure 119/56 L Pulse Oximetry 98 98 96 01/10/18 17:47 01/10/18 19:00 01/10/18 19:30 Temperature 100 F H Pulse Rate 83 83 Respiratory Rate 16 Blood Pressure 108/48 L Pulse Oximetry 98 98 01/10/18 21:14 01/10/18 21:25 01/10/18 23:00 Temperature 97.7 F Pulse Rate 86 87 Respiratory Rate 20 16 Blood Pressure 121/50 L Pulse Oximetry 98 99 01/10/18 23:30 01/10/18 23:35 01/11/18 01:25 Temperature Pulse Rate 89 Respiratory Rate 16 Blood Pressure Pulse Oximetry 99 01/11/18 03:00 01/11/18 03:05 01/11/18 04:19 Temperature 100.2 F H Pulse Rate 89 90 Respiratory Rate 16 16 18 Blood Pressure 111/50 L Pulse Oximetry 92 L 01/11/18 07:33 01/11/18 07:38 01/11/18 07:45 Temperature 100.2 F H Pulse Rate 97 H 97 H Respiratory Rate 17 Blood Pressure 118/52 L Pulse Oximetry 99 99 GENERAL: A&O x 3 SKIN: Warm and dry. prevena dressing to chest / jessica wrap to right leg HEAD: Normocephalic. EYES: No scleral icterus. No injection or drainage. NECK: Supple, trachea midline. No JVD or lymphadenopathy. CARDIOVASCULAR: Regular rate and rhythm +3/6 SM, + rub mild general edema RESPIRATORY: Breath sounds equal bilaterally. No accessory muscle use. diminished in the bases GASTROINTESTINAL: Abdomen soft, non-tender, nondistended. MUSCULOSKELETAL: No cyanosis, or edema. BACK: Nontender without obvious deformity. No CVA tenderness. Labs: Laboratory Results - last 12 hr 01/09/18 01/10/18 01/10/18 05:08 20:39 21:28 WBC RBC Hgb Hct MCV MCH MCHC RDW Plt Count MPV Sodium Potassium Chloride Carbon Dioxide Anion Gap BUN Creatinine Estimated GFR POC Glucose 107 103 Random Glucose Calcium Magnesium Blood Type O Positive Blood Type Recheck Required Antibody Screen Negative MTS Gel Crossmatch See Detail 01/10/18 01/11/18 01/11/18 22:48 00:44 02:00 WBC RBC Hgb Hct MCV MCH MCHC RDW Plt Count MPV Sodium Potassium Chloride Carbon Dioxide Anion Gap BUN Creatinine Estimated GFR POC Glucose 110 118 H 102 Random Glucose Calcium Magnesium Blood Type Blood Type Recheck Antibody Screen MTS Gel Crossmatch 01/11/18 01/11/18 01/11/18 04:25 05:15 05:15 WBC 10.7 RBC 4.78 Hgb 14.4 Hct 43.9 MCV 91.8 MCH 30.2 MCHC 32.9 RDW 16.5 Plt Count 102 L D MPV 9.9 Sodium 137 Potassium 5.3 H Chloride 106 Carbon Dioxide 22.3 Anion Gap 9 BUN 15 Creatinine 0.79 Estimated GFR 75 L POC Glucose 119 H Random Glucose 123 H Calcium 8.2 L D Magnesium 2.1 Blood Type Blood Type Recheck Antibody Screen MTS Gel Crossmatch 01/11/18 01/11/18 05:19 06:23 WBC RBC Hgb Hct MCV MCH MCHC RDW Plt Count MPV Sodium Potassium Chloride Carbon Dioxide Anion Gap BUN Creatinine Estimated GFR POC Glucose 116 H 114 H Random Glucose Calcium Magnesium Blood Type Blood Type Recheck Antibody Screen MTS Gel Crossmatch Result Diagrams: 01/11/18 05:15 01/11/18 05:15 - Plan (4) CAD (coronary artery disease) Plan: for surgery on Wednesday (5) Mitral regurgitation Plan: eval for mitral clip as outpt repeat echo 2-4 weeks (7) S/P CABG x 2 Plan: ASA, statin , hold on BB for now OOB ambulate pulm toileting (4) CAD (coronary artery disease) Qualifiers: Qualified Code(s): I25.10 - Atherosclerotic heart disease of [place] coronary artery without angina pectoris
[2018-01-11] MEDS: Multivitamin/Minerals Therapeutic Tablet PO SCH (09:07)
[2018-01-11] MEDS: Amiodarone 200 MG Tablet PO SCH ×2 (09:07→21:20)
[2018-01-11] MEDS: Metoprolol Tartrate 25 MG Tablet PO SCH ×2 (09:08→21:20)
[2018-01-11] MEDS: Insulin NovoLOG Aspart Correctional Sugar Inj SQ SCH ×4 (09:59→23:02)
[2018-01-11] MEDS: Ketorolac Inj 30 MG/ML (IVP) Vial IV.PUSH PRN (10:00)
--- NOTE | 2018-01-11 10:08 | P.DIET ---
Nutritional Evaluation Screening comments: MDC for diet education s/p CABG x 2 on (01/10) received. Patient Navigator to provide education. Consult RD if complexities with diet education arise.
[2018-01-11] MEDS: amLODIPine 5 MG Tablet PO SCH (14:26)
--- NOTE | 2018-01-11 14:47 | P.PNCA ---
Subjective Interval history: Extubated Off oxygen Laying relatively flat Physical Exam Vital signs: Vital Signs 01/10/18 15:03 01/10/18 15:04 01/10/18 15:36 Temperature 98.8 F Pulse Rate 82 Respiratory Rate 20 20 Blood Pressure 109/53 L Pulse Oximetry 96 98 01/10/18 16:48 01/10/18 17:04 01/10/18 17:47 Temperature 99.8 F H Pulse Rate 86 85 83 Respiratory Rate 16 17 Blood Pressure 119/56 L Pulse Oximetry 98 96 01/10/18 19:00 01/10/18 19:30 01/10/18 21:14 Temperature 100 F H Pulse Rate 83 86 Respiratory Rate 16 20 Blood Pressure 108/48 L Pulse Oximetry 98 98 01/10/18 21:25 01/10/18 23:00 01/10/18 23:30 Temperature 97.7 F Pulse Rate 87 Respiratory Rate 16 Blood Pressure 121/50 L Pulse Oximetry 98 99 99 01/10/18 23:35 01/11/18 01:25 01/11/18 03:00 Temperature 100.2 F H Pulse Rate 89 89 Respiratory Rate 16 16 Blood Pressure 111/50 L Pulse Oximetry 92 L 01/11/18 03:05 01/11/18 04:19 01/11/18 07:33 Temperature Pulse Rate 90 97 H Respiratory Rate 16 18 Blood Pressure Pulse Oximetry 01/11/18 07:38 01/11/18 07:45 01/11/18 09:02 Temperature 100.2 F H Pulse Rate 97 H 99 H Respiratory Rate 17 17 Blood Pressure 118/52 L Pulse Oximetry 99 99 98 01/11/18 09:39 01/11/18 10:39 01/11/18 10:40 Temperature 98.8 F Pulse Rate 97 H Respiratory Rate 18 17 17 Blood Pressure 111/57 L Pulse Oximetry 92 L 01/11/18 10:41 01/11/18 10:42 01/11/18 13:00 Temperature 98.4 F Pulse Rate 97 H 102 H Respiratory Rate 16 Blood Pressure 113/55 L Pulse Oximetry 92 L 92 L Intake & Output 01/10/18 01/11/18 01/11/18 18:59 06:59 18:59 Intake Total 3639 / 3639 1628 / 1628 470 / 470 Output Total 300 / 300 430 / 430 Balance 3339 / 3339 1198 / 1198 470 / 470 Weight 83.5 kg Intake: IV 1909 / 1909 1388 / 1388 470 / 470 Precedex Inj 200 MCG In NS Inj 50 / 50 48 ML @ 0.2 MCG/KG/HR 4.1 mls/ hr IV.CONT TITRATE PRN Rx#: [id number] EPINEPHrine (1:1000) Inj 2 MG 22 / 22 In D5W Inj 248 ML @ 2 MCG/MIN 15 mls/hr IV.CONT TITRATE PRN Rx#:[id number] NovoLIN R (IV Infusion) 100 17 / 17 18 / 18 0 / 0 UNIT In NS Inj 99 ML @ 3 UNITS/ HR 3 mls/hr IV.CONT TITRATE PRN Rx#:[id number] Ofirmev Inj 1,000 mg In 100 ml 100 / 100 200 / 200 100 / 100 @ 400 mls/hr IV.SIG Q6H DENIZ Rx# :[id number] Buminate 5% Inj 250 ML @ 250 250 / 250 250 / 250 mls/hr IV.SIG UNSCH PRN Rx#: [id number] LR 1000 mL Inj 1,000 ML @ 30 1500 / 1500 800 / 800 mls/hr IV.SIG .Q24H DENIZ Rx#: [id number] Ancef Inj 2,000 MG In NS Inj 220 / 220 120 / 120 120 / 120 100 ML @ 240 mls/hr IV.SIG Q8H DENIZ Rx#:[id number] Oral 240 / 240 Anesthesia Amount 1500 / 1500 Cell Saver Amount 230 / 230 Output: Urine Amount (Catheter) 300 / 300 300 / 300 Indwelling Temp Sensing 300 / 300 300 / 300 Catheter Chest Tube Drainage 130 / 130 Pleural/Mediastinal 130 / 130 Other: Date of Last Bowel Movement 01/09/18 # Bowel Movements 0 0 Narrative: GENERAL: NAD, AAOx3 SKIN: Warm and dry. HEAD: Atraumatic. Normocephalic. EYES: Pupils equal and round. No scleral icterus. No injection or drainage. ENT: No nasal bleeding or discharge. Mucous membranes pink and moist. NECK: Trachea midline. No JVD. CARDIOVASCULAR: Regular rate and rhythm. Holosystolic murmur noted at the apex. Sternotomy with covering RESPIRATORY: No accessory muscle use. Clear to auscultation. Breath sounds equal bilaterally. GASTROINTESTINAL: Abdomen soft, non-tender, nondistended. Hepatic and splenic margins not palpable. MUSCULOSKELETAL: Extremities without clubbing, cyanosis, or edema. No obvious deformities. NEUROLOGICAL: Awake and alert. No obvious cranial nerve deficits. Motor grossly within normal limits. Five out of 5 muscle strength in the arms and legs. Normal speech. PSYCHIATRIC: Appropriate mood and affect; insight and judgment normal. - Urinary Catheter Management Indwelling Temp Sensing Catheter Cath placed during this visit: yes Reason for continuing: Hourly intake/output Insertion date: 01/10/18 Insertion time: 07:58 Assessment and Plan - Assessment (1) Ischemic cardiomyopathy Code(s): I25.5 - Ischemic cardiomyopathy Status: Acute (2) CAD (coronary artery disease) Code(s): I25.10 - Atherosclerotic heart disease of [place] coronary artery without angina pectoris Status: Acute (3) Mitral regurgitation Code(s): I34.0 - Nonrheumatic mitral (valve) insufficiency Status: Acute (4) Tricuspid regurgitation Code(s): I07.1 - Rheumatic tricuspid insufficiency Status: Acute (5) Acute dyspnea Code(s): R06.00 - Dyspnea, unspecified Status: Acute (6) New onset of congestive heart failure Code(s): I50.9 - Heart failure, unspecified Status: Acute - Plan 1) Acute decompensated systolic heart failure Appears compensated now 2) Ischemic cardiomyopathy EF 30% Most likely will need diureses, probably start tomorrow 3) Left main disease/mitral regurg/tricuspid regurg s/p CABG x2 POD #1 SAMS to LAD SVG to OM 4) Arimidex stopped due to ischemic heart disease This will have to be reevaluated by Heme/Onc on restarting vs change of meds after surgery (2) CAD (coronary artery disease) Qualifiers: Qualified Code(s): I25.10 - Atherosclerotic heart disease of [place] coronary artery without angina pectoris
--- NOTE | 2018-01-11 15:12 | P.DCO ---
- Diagnosis (4) CAD (coronary artery disease) (5) Mitral regurgitation (6) Tricuspid regurgitation - Home Health Nursing Order: Signs/symptoms of disease process, Wound care and dressing changes, Nursing assessment with vital signs Instructions: Heart and Vascular Surgery patients *Special attention to sternal dressing Mandatory frequency Assess and evaluation, 4 days in a row The next week 3X week 2 times a week for 4 weeks 1 time a week for 5 weeks Schedule Heart and Vascular patients for full 60 day certification period Initial visit Review Open Heart Surgery Discharge Instructions (Sternal precautions, Activity, Elastic hose, Incision care, Driving, Incentive spirometry, Smoking, [place], Work and other) Need Betadine to paint incision Medication reconciliation Importance of follow up care/ check on appointments Make calendar record temperature daily When to call [facility] at Home nurse, review instructions, phone list Incentive Spirometry, demonstration Visit 1- Begin discharge instruction for patient family and/ or caregiver using teach back method- Signs and symptoms of infection Disease characteristics Medicines and side effects Foods and nutrition/ appetite Infection control/ hand washing/ hygiene Visit 2- Continue teaching Discharge instructions- include additional information on smoking cessation , sternal dressing (sternal vac) Visit 3- Continue teaching- Cough and deep breathing, incision monitoring. Choose my plate Visit 4- Continue teaching- Discuss limitations Discuss how they are feeling Discuss progress toward goals Remaining visits- continue teaching and monitoring For any questions please call : Wednesday 8am-5pm Heart & Vascular Surgery Office ( Dr. Fishman & Dr. Ambrosio), After Hours / Nights (5pm -8am) Weekends and Holidays Please call [facility] Cardiac Intermediate Care Unit (CIC) Charge Nurse PREVENA Single Use Negative Wound Therapy System Caregiver Instruction Sheet 1. A Prevena dressing system was applied to the chest incision during surgery , to promote wound healing. It works via a suction device (negative pressure wound therapy) to remove low to moderate levels of exudate (drainage) and infectious materials. We recommend that the device stay in place for up to seven days, from day of surgery. 2. Day of Surgery__/ Day of Removal ___/ 3. The dressing should only be removed by a health reservoir caretaker. Please arrange removal of device to coincide with Home Health visit and or with Nursing staff at Rehab 4. If skin reddening or irritation of skin occurs, or excessive drainage, please notify the Cardiovascular Surgeons office at [phone]. 5. Light showering is permissible; however the pump should be disconnected and placed in safe location, where it will not get wet. The dressing should not be exposed to direct spray or submerged in water. No bath tub / shower only. Ensure the end of the tubing attached to the dressing is facing down so that water does not enter the top of the tube. 6. To remove Prevena dressing: press purple button to turn off device / remove the suction. Then disconnect the tubing from the pump. The fixation strips should be stretched away from the skin and the dressing lifted at one corner and peeled back until it has been fully removed. 7. After removal, it is ok to shower daily using liquid dial soap and clean wash cloth, rinse and pat dry, and leave incision open to air dry. For any concerns regarding Prevena dressing, and or wounds, please contact Rosa Boyle, patient navigator at [phone] or notify the Cardiovascular Surgeons office at [phone]. Incentive spirometry Q1 hr x 10, while awake, also use acapella device hourly whole awake Sternal Breast Bone Precautions: NO pushing or pulling, ( pt must use sternal pillow to support chest with all activities and with coughing ( takes up to 3 months breast bone to heal ) All females to wear sternal bra , launder as needed Daily incision care: ok to shower daily, no tub bath. Wash all incisions with liquid dial soap, clean wash cloth to each site, rinse and pat dry. Observe for any signs of infection, such as drainage which is dark yellow, [place], green or foul smelling. Immediately report to the surgeon any drainage from the chest incision, or legs, and for any abnormal drainage from the chest tube sites. Notify surgeon if any temp >101.5 degrees F. When specialty dressing removed/ or if you do not have one, continue to shower daily as above, then rinse and pat incision dry and paint with betadine daily x 5 days. Allow steri strips to fall off if you have any. Avoid lotions, creams, salves, oils, etc. for the first month Please see attached forms for additional instructions regarding post Open Heart specialty wound vacuum dressings. ALANA or Prevena , Dressing to be removed by Nursing staff on __01/17/18 F/U appointment: as per DC instructions: PCP in 2 weeks, CV surgeon 2 weeks, L D Rn 3-4 weeks For any questions regarding incisions/ dressing / meds / post op care or above Symptoms, Wednesday 8am-5pm Heart & Vascular Surgery Office ( Dr. Fishman & Dr. Ambrosio), After Hours / Nights (5pm -8am) Weekends and Holidays Please call [facility] Cardiac Intermediate Care Unit (CIC) Charge Nurse - Certification I have seen patient Lisa Carbajal on 01/11/18. My clinical findings support the need for the requested home health care services because: Deconditioned with increased weakness I certify that my clinical findings support that this patient is homebound because: Post-op weakness (4) CAD (coronary artery disease) Qualifiers: Coronary Disease-Associated Artery/Lesion type: [place] artery (5) Mitral regurgitation Qualifiers: Cardiac valve disease etiology: nonrheumatic Qualified Code(s): I34.0 - Nonrheumatic mitral (valve) insufficiency (6) Tricuspid regurgitation Qualifiers: Cardiac valve disease etiology: nonrheumatic Qualified Code(s): I36.1 - Nonrheumatic tricuspid (valve) insufficiency
--- NOTE | 2018-01-11 20:01 | ECG ---
Date Performed: 01/11/2018 Time Performed: 05:10:24 PTAGE: 57 years EKG: Sinus rhythm . Extensive T wave changes may be due to myocardial ischemia Abnormal ECG PREVIOUS TRACING : 01/05/2018 01.14 Since the previous tracing, no significant change noted DOCTOR: Imer Sun Interpretating Date/Time 01/11/2018 19:57:37
[2018-01-11] MEDS: Docusate Sodium 100 MG Capsule PO SCH (21:21)
[2018-01-12] MEDS: Insulin NovoLOG Aspart Correctional Sugar Inj SQ SCH ×5 (03:33→21:57)
[2018-01-12 06:28] LABS: Baso % (Auto) 0.2 % (0.0-2.0); Eos % (Auto) 0.2 % (0.0-4.0); Hematocrit 38.5 % (35.0-46.0); Hemoglobin 12.9 gm/dL (11.6-15.3); Lymph # (Auto) 1.3 th/mm3 (1.0-4.8); Lymph % (Auto) 11.5 % (9.0-44.0); Mean Corpuscular HGB Conc 33.4 % (32.0-36.0); Mean Corpuscular Hemoglobin 30.2 pg (27.0-34.0); Mean Corpuscular Volume 90.4 fL (80.0-100.0); Mean Platelet Volume 10.6 fL (7.0-11.0); Mono # (Auto) 1.1 th/mm3 (0.0-0.9); Mono % (Auto) 9.6 % (0.0-8.0); Neut # (Auto) 8.9 th/mm3 (1.8-7.7); Neut % (Auto) 78.5 % (16.0-70.0); Platelet Count 111 th/mm3 (150-450); Red Blood Count 4.26 mil/mm3 (4.00-5.30); Red Cell Distribution Width 16.5 % (11.6-17.2); White Blood Count 11.3 th/mm3 (4.0-11.0)
[2018-01-12 06:49] LABS: Calcium 8.4 mg/dL (8.5-10.1); Carbon Dioxide 26.5 meq/L (21.0-32.0); Magnesium 2.2 mg/dL (1.5-2.5); Potassium 4.6 meq/L (3.5-5.1)
[2018-01-12] MEDS: Ketorolac Inj 30 MG/ML (IVP) Vial IV.PUSH PRN (07:51)
[2018-01-12] MEDS: Amiodarone 200 MG Tablet PO SCH ×2 (08:27→21:46)
[2018-01-12] MEDS: Docusate Sodium 100 MG Capsule PO SCH ×2 (08:27→21:45)
[2018-01-12] MEDS: Metoprolol Tartrate 25 MG Tablet PO SCH ×2 (08:29→21:45)
[2018-01-12] MEDS: Polyethylene Glycol 3350 17 GM Packet PO SCH (09:00)
[2018-01-12] MEDS: Multivitamin/Minerals Therapeutic Tablet PO SCH (09:00)
[2018-01-12] MEDS ORDERED: Amiodarone 200 MG Tablet PO ONE (10:03)
--- NOTE | 2018-01-12 10:06 | P.PNCV ---
- Note Subjective/Hospital Course: 57-year-old female, unsure of the name of her new primary care physician, presented to the emergency room on 01/04/2018 with complaint of fatigue for the past 6 months shortness of breath over the past couple of weeks, mainly with exertion. She has noticed some orthopnea, some dyspnea, mainly if she is climbing some stairs. She works at the [employer] and has had some difficulty at work. She has also noted a 3-4 day period of some lower extremity edema, nonproductive cough, some chest pressure when she lies flat. She underwent echocardiogram where she was found to have an ejection fraction of 30%, moderate to severe mitral regurgitation, moderate to severe tricuspid regurgitation. She underwent heart catheterization today, which showed a 70% left main, IVUS area 5.71, proximal LAD 30%, the mid distal LAD 50%, the diagonal 70%. Her RV pressures are 53/0, PA pressure 51/21 with a wedge pressure of 29. We were consulted to evaluate for coronary artery bypass graft x 2, mitral valve repair, tricuspid valve repair. PAST MEDICAL HISTORY: Includes breast cancer with bilateral mastectomy 2013, followed by chemo and radiation, hypertension. She had a pulmonary embolus after her breast reconstruction, was on anticoagulation for 3 months.. 01/06 no chest pain / had episode of short run VT last night K+ replaced, placed on Ntg for surgery on monday 01/08 Discussed clinical, echo and angiography findings with the patient and her this morning. He has asked about alternative institutions for her cardiac cares, specifically [facility]. He wants to think about the options prior to agree with proceeding with surgery on Wednesday morning. Will reproach them tomorrow morning as to specific decision and proceed accordingly. 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 01/09 Lengthy discussion again. OR in am. Still deciding on type of valve should replacement be necessary 01/10 surgery : 1. Severe Left Main Coronary Artery Disease. 2. Severe mitral insufficiency 3. Severe tricuspid insufficiency 4. 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 Urgent Clampless Off-pump Coronary Artery Bypass Grafting x 2 with Left Internal Mammary Artery (SAMS) to Left Anterior Descending (LAD), reverse saphenous vein graft to Obtuse Marginal branch of the Left Circumflex artery 2. Right leg Endoscopic Vein [place] extubated after surgery crystalloid 2500cc, 230cc cell saver 01/11 pt on nasal cannula BP labile , hold on BB for now and diuresis re-eval for later today ASA, statin , plavix will need JESSICA/ eval for Life vest / eval for Mitral Clip after recovery 4-6 weeks discussed with pt and 01/12 chest tube dc without difficulty on room air , gentle diuresis + 7kg on BB , plavix , ASA ambulate / short non sustained afib last pm Objective: Vital Signs - 24 hr 01/11/18 10:39 01/11/18 10:40 01/11/18 10:41 Temperature 98.8 F Pulse Rate 97 H 97 H Respiratory Rate 17 17 Blood Pressure 111/57 L Pulse Oximetry 92 L 01/11/18 10:42 01/11/18 13:00 01/11/18 14:00 Temperature 98.4 F Pulse Rate 102 H 106 H Respiratory Rate 16 Blood Pressure 113/55 L Pulse Oximetry 92 L 92 L 01/11/18 15:00 01/11/18 15:24 01/11/18 16:00 Temperature 97.9 F Pulse Rate 101 H 100 H 105 H Respiratory Rate 17 18 Blood Pressure 117/56 L Pulse Oximetry 93 L 97 01/11/18 17:00 01/11/18 18:00 01/11/18 19:00 Temperature 98 F Pulse Rate 100 H 106 H 100 H Respiratory Rate 18 Blood Pressure 125/61 Pulse Oximetry 97 01/11/18 19:16 01/11/18 20:00 01/11/18 21:00 Temperature Pulse Rate 102 H 102 H 104 H Respiratory Rate 16 Blood Pressure Pulse Oximetry 97 01/11/18 22:00 01/11/18 22:56 01/11/18 23:00 Temperature 98.5 F Pulse Rate 102 H 100 H Respiratory Rate 16 16 Blood Pressure 119/58 L Pulse Oximetry 97 01/12/18 00:00 01/12/18 01:00 01/12/18 01:49 Temperature Pulse Rate 98 H 98 H Respiratory Rate 16 Blood Pressure Pulse Oximetry 01/12/18 02:00 01/12/18 03:00 01/12/18 04:00 Temperature 97.8 F Pulse Rate 96 H 69 100 H Respiratory Rate 16 Blood Pressure 161/89 H Pulse Oximetry 93 L 01/12/18 05:00 01/12/18 06:00 01/12/18 06:23 Temperature Pulse Rate 96 H 95 H Respiratory Rate 18 Blood Pressure Pulse Oximetry 01/12/18 07:00 01/12/18 08:10 01/12/18 09:10 Temperature 97.7 F Pulse Rate 97 H 98 H Respiratory Rate 18 14 18 Blood Pressure 128/58 L Pulse Oximetry 96 96 01/12/18 09:11 Temperature Pulse Rate Respiratory Rate 18 Blood Pressure Pulse Oximetry GENERAL: A&O x 3 SKIN: Warm and dry. prevena dressing to chest , incision intact to right leg HEAD: Normocephalic. EYES: No scleral icterus. No injection or drainage. NECK: Supple, trachea midline. No JVD or lymphadenopathy. CARDIOVASCULAR: Regular rate and rhythm without murmurs, gallops, or rubs. RESPIRATORY: Breath sounds equal bilaterally. No accessory muscle use. chest tube dc without difficulty GASTROINTESTINAL: Abdomen soft, non-tender, nondistended. MUSCULOSKELETAL: No cyanosis, or edema. BACK: Nontender without obvious deformity. No CVA tenderness. Labs: Laboratory Results - last 12 hr 01/09/18 01/11/18 01/12/18 05:08 22:53 02:39 WBC RBC Hgb Hct MCV MCH MCHC RDW Plt Count MPV Neut % (Auto) Lymph % (Auto) [place] % (Auto) Eos % (Auto) Baso % (Auto) Neut # (Auto) Lymph # (Auto) [place] # (Auto) Eos # (Auto) Baso # (Auto) WBC Differential Differential Comment Sodium Potassium Chloride Carbon Dioxide Anion Gap BUN Creatinine Estimated GFR POC Glucose 118 H 126 H Random Glucose Calcium Magnesium MTS Gel Crossmatch See Detail 01/12/18 01/12/18 01/12/18 04:30 04:30 06:21 WBC 11.3 H RBC 4.26 Hgb 12.9 Hct 38.5 MCV 90.4 MCH 30.2 MCHC 33.4 RDW 16.5 Plt Count 111 L MPV 10.6 Neut % (Auto) 78.5 H Lymph % (Auto) 11.5 [place] % (Auto) 9.6 H Eos % (Auto) 0.2 Baso % (Auto) 0.2 Neut # (Auto) 8.9 H Lymph # (Auto) 1.3 [place] # (Auto) 1.1 H Eos # (Auto) 0.0 Baso # (Auto) 0.0 WBC Differential . Differential Comment Auto diff final Sodium 138 Potassium 4.6 Chloride 102 Carbon Dioxide 26.5 Anion Gap 10 BUN 20 H Creatinine 0.80 Estimated GFR 74 L POC Glucose 171 H Random Glucose 110 H Calcium 8.4 L Magnesium 2.2 MTS Gel Crossmatch 01/12/18 07:55 WBC RBC Hgb Hct MCV MCH MCHC RDW Plt Count MPV Neut % (Auto) Lymph % (Auto) [place] % (Auto) Eos % (Auto) Baso % (Auto) Neut # (Auto) Lymph # (Auto) [place] # (Auto) Eos # (Auto) Baso # (Auto) WBC Differential Differential Comment Sodium Potassium Chloride Carbon Dioxide Anion Gap BUN Creatinine Estimated GFR POC Glucose 146 H Random Glucose Calcium Magnesium MTS Gel Crossmatch Result Diagrams: 01/12/18 04:30 01/12/18 04:30 - Plan (2) New onset of congestive heart failure Plan: gentle diuresis start on JESSICA (3) Ischemic cardiomyopathy Plan: will discuss need for life vest with Dr Rivera (4) CAD (coronary artery disease) Plan: for surgery on Wednesday (5) Mitral regurgitation Plan: eval for mitral clip as outpt repeat echo 2-4 weeks (6) Tricuspid regurgitation (7) S/P CABG x 2 Plan: ASA, statin , hold on BB for now OOB ambulate pulm toileting (4) CAD (coronary artery disease) Qualifiers: Coronary Disease-Associated Artery/Lesion type: [place] artery (5) Mitral regurgitation Qualifiers: Cardiac valve disease etiology: nonrheumatic Qualified Code(s): I34.0 - Nonrheumatic mitral (valve) insufficiency (6) Tricuspid regurgitation Qualifiers: Cardiac valve disease etiology: nonrheumatic Qualified Code(s): I36.1 - Nonrheumatic tricuspid (valve) insufficiency
[2018-01-12] MEDS: Lisinopril 5 MG Tablet PO SCH (11:33)
[2018-01-12] MEDS: Anastrozole 1 MG Tablet PO SCH (15:47)
--- NOTE | 2018-01-12 22:16 | P.PNCA ---
Subjective Interval history: No events overnight Feels overall well No shortness of breath Telemetry with brief episode of Afib, otherwise sinus rhythm Physical Exam Vital signs: Vital Signs 01/11/18 22:56 01/11/18 23:00 01/12/18 00:00 Temperature 98.5 F Pulse Rate 100 H 98 H Respiratory Rate 16 16 Blood Pressure 119/58 L Pulse Oximetry 97 01/12/18 01:00 01/12/18 01:49 01/12/18 02:00 Temperature Pulse Rate 98 H 96 H Respiratory Rate 16 Blood Pressure Pulse Oximetry 01/12/18 03:00 01/12/18 04:00 01/12/18 05:00 Temperature 97.8 F Pulse Rate 69 100 H 96 H Respiratory Rate 16 Blood Pressure 161/89 H Pulse Oximetry 93 L 01/12/18 06:00 01/12/18 06:23 01/12/18 07:00 Temperature 97.7 F Pulse Rate 95 H 97 H Respiratory Rate 18 18 Blood Pressure 128/58 L Pulse Oximetry 96 01/12/18 08:10 01/12/18 09:10 01/12/18 09:11 Temperature Pulse Rate 98 H Respiratory Rate 14 18 18 Blood Pressure Pulse Oximetry 96 01/12/18 11:00 01/12/18 12:00 01/12/18 13:00 Temperature 98.2 F Pulse Rate 90 92 H 93 H Respiratory Rate 17 Blood Pressure 132/62 Pulse Oximetry 94 L 01/12/18 14:00 01/12/18 15:00 01/12/18 15:58 Temperature 99.0 F Pulse Rate 94 H 95 H 94 H Respiratory Rate 17 17 Blood Pressure 122/62 Pulse Oximetry 93 L 01/12/18 16:00 01/12/18 17:00 01/12/18 17:38 Temperature Pulse Rate 98 H 95 H 96 H Respiratory Rate Blood Pressure Pulse Oximetry 01/12/18 21:04 Temperature Pulse Rate 94 H Respiratory Rate 17 Blood Pressure Pulse Oximetry 94 L Intake & Output 01/12/18 01/12/18 01/13/18 06:59 18:59 06:59 Intake Total 360 / 360 480 / 480 Output Total 300 / 300 250 / 250 Balance 60 / 60 230 / 230 Weight 87.5 kg Intake: IV 120 / 120 0 / 0 EPINEPHrine (1:1000) Inj 2 MG 0 / 0 In D5W Inj 248 ML @ 2 MCG/MIN 15 mls/hr IV.CONT TITRATE PRN Rx#:[id number] LR 1000 mL Inj 1,000 ML @ 30 0 / 0 mls/hr IV.SIG .Q24H DENIZ Rx#: [id number] Ancef Inj 2,000 MG In NS Inj 120 / 120 100 ML @ 240 mls/hr IV.SIG Q8H DENIZ Rx#:[id number] Oral 240 / 240 480 / 480 Output: Urine 300 / 300 250 / 250 Narrative: GENERAL: NAD, AAOx3 SKIN: Warm and dry. HEAD: Atraumatic. Normocephalic. EYES: Pupils equal and round. No scleral icterus. No injection or drainage. ENT: No nasal bleeding or discharge. Mucous membranes pink and moist. NECK: Trachea midline. No JVD. CARDIOVASCULAR: Regular rate and rhythm. Holosystolic murmur noted at the apex. Sternotomy with covering RESPIRATORY: No accessory muscle use. Clear to auscultation. Breath sounds equal bilaterally. GASTROINTESTINAL: Abdomen soft, non-tender, nondistended. Hepatic and splenic margins not palpable. MUSCULOSKELETAL: Extremities without clubbing, cyanosis, or edema. No obvious deformities. NEUROLOGICAL: Awake and alert. No obvious cranial nerve deficits. Motor grossly within normal limits. Five out of 5 muscle strength in the arms and legs. Normal speech. PSYCHIATRIC: Appropriate mood and affect; insight and judgment normal. - Urinary Catheter Management Indwelling Temp Sensing Catheter Cath placed during this visit: yes Reason for continuing: Hourly intake/output Insertion date: 01/10/18 Insertion time: 07:58 Assessment and Plan - Assessment (1) Ischemic cardiomyopathy Code(s): I25.5 - Ischemic cardiomyopathy Status: Acute (2) CAD (coronary artery disease) Code(s): I25.10 - Atherosclerotic heart disease of [place] coronary artery without angina pectoris Status: Acute (3) Mitral regurgitation Code(s): I34.0 - Nonrheumatic mitral (valve) insufficiency Status: Acute (4) Tricuspid regurgitation Code(s): I07.1 - Rheumatic tricuspid insufficiency Status: Acute (5) Acute dyspnea Code(s): R06.00 - Dyspnea, unspecified Status: Acute (6) New onset of congestive heart failure Code(s): I50.9 - Heart failure, unspecified Status: Acute - Plan 1) Acute decompensated systolic heart failure Appears compensated now 2) Ischemic cardiomyopathy EF 30% Concern for EF being 10-15% on ARLETTE during operation, plan to repeat echo tomorrow Will need repeat echo in 2-3 months unless further symptomatic 3) Left main disease/mitral regurg/tricuspid regurg s/p CABG x2 POD #2 SAMS to LAD SVG to OM 4) Arimidex stopped due to ischemic heart disease This will have to be reevaluated by Heme/Onc on restarting vs change of meds after surgery 5) Severe MR/TR Unable to fix during the operation due to concern for EF 10-15% by ARLETTE Will need to be reevaluated as well as symptoms, if still significant then consideration of mini-mitral valve repair in the future if EF is better vs mitral clip (2) CAD (coronary artery disease) Qualifiers: Coronary Disease-Associated Artery/Lesion type: [place] artery (3) Mitral regurgitation Qualifiers: Cardiac valve disease etiology: nonrheumatic Qualified Code(s): I34.0 - Nonrheumatic mitral (valve) insufficiency (4) Tricuspid regurgitation Qualifiers: Cardiac valve disease etiology: nonrheumatic Qualified Code(s): I36.1 - Nonrheumatic tricuspid (valve) insufficiency
[2018-01-13 05:43] LABS: Calcium 8.3 mg/dL (8.5-10.1); Carbon Dioxide 28.9 meq/L (21.0-32.0); Magnesium 2.6 mg/dL (1.5-2.5); Potassium 5.6 meq/L (3.5-5.1)
--- NOTE | 2018-01-13 06:25 | XR ---
EXAM DATE: 01/13/2018 5:37 AM EDT AGE/SEX: 57 years / Female INDICATIONS: Shortness of breath, possible pneumothorax. CLINICAL DATA: This is the patient's subsequent encounter. Patient reports that signs and symptoms h ave been present for 1 week and indicates a pain score of 3/10. MEDICAL/SURGICAL HISTORY: Cardiovascular disease. Carcinoma, breast. PE. CABG. Mastectomy. COMPARISON: [facility] – [place]ST 1V SINGLE AP, 01/11/2018. . FINDINGS: A single AP view of the chest demonstrates persistent consolidation within the left base which is unc hanged. Right base has shown some improvement. No effusions. Mild cardiomegaly. Median sternotomy wir es. Right-sided central line. CONCLUSION: Unchanged left lower lobe infiltrate with improving right lower lobe infiltrate. Cardiomegaly. Electronically signed by: Byron Garnica MD 01/13/2018 6:23 AM EDT
[2018-01-13] MEDS: Multivitamin/Minerals Therapeutic Tablet PO SCH (08:18)
[2018-01-13] MEDS: Amiodarone 200 MG Tablet PO SCH ×2 (08:19→22:13)
[2018-01-13] MEDS: Anastrozole 1 MG Tablet PO SCH (08:19)
[2018-01-13] MEDS: Lisinopril 5 MG Tablet PO SCH (08:19)
[2018-01-13] MEDS: Docusate Sodium 100 MG Capsule PO SCH ×2 (08:19→22:13)
[2018-01-13] MEDS: Metoprolol Tartrate 25 MG Tablet PO SCH (08:20)
[2018-01-13] MEDS: Polyethylene Glycol 3350 17 GM Packet PO SCH (08:20)
[2018-01-13] MEDS ORDERED: Sodium Polystyrene Sulfonate/Sorbitol Liq 15 GM/60 ML UDC PO ONE (09:13)
[2018-01-13] MEDS: Insulin NovoLOG Aspart Correctional Sugar Inj SQ SCH ×4 (10:18→22:14)
--- NOTE | 2018-01-13 12:10 | P.PNCA ---
Subjective Interval history: No events overnight Feels somewhat nauseated Physical Exam Vital signs: Vital Signs 01/12/18 13:00 01/12/18 14:00 01/12/18 15:00 Temperature 99.0 F Pulse Rate 93 H 94 H 95 H Respiratory Rate 17 Blood Pressure 122/62 Pulse Oximetry 93 L 01/12/18 15:58 01/12/18 16:00 01/12/18 17:00 Temperature Pulse Rate 94 H 98 H 95 H Respiratory Rate 17 Blood Pressure Pulse Oximetry 01/12/18 17:38 01/12/18 19:00 01/12/18 20:00 Temperature 98.3 F Pulse Rate 96 H 100 H 96 H Respiratory Rate 20 Blood Pressure 128/60 Pulse Oximetry 90 L 90 L 01/12/18 21:00 01/12/18 21:04 01/12/18 22:00 Temperature Pulse Rate 96 H 94 H 96 H Respiratory Rate 17 Blood Pressure Pulse Oximetry 94 L 01/12/18 23:00 01/13/18 00:00 01/13/18 01:00 Temperature 98.5 F Pulse Rate 100 H 92 H 92 H Respiratory Rate 22 Blood Pressure 123/58 L Pulse Oximetry 91 L 01/13/18 01:03 01/13/18 02:00 01/13/18 03:00 Temperature 98.3 F Pulse Rate 88 84 Respiratory Rate 20 20 Blood Pressure 102/53 L Pulse Oximetry 96 01/13/18 04:00 01/13/18 05:00 01/13/18 06:00 Temperature Pulse Rate 84 84 86 Respiratory Rate Blood Pressure Pulse Oximetry 01/13/18 07:00 01/13/18 08:00 01/13/18 08:37 Temperature 98.6 F Pulse Rate 86 81 90 Respiratory Rate 18 Blood Pressure 144/81 H Pulse Oximetry 91 L 95 01/13/18 08:49 Temperature Pulse Rate 90 Respiratory Rate Blood Pressure Pulse Oximetry 94 L Intake & Output 01/12/18 01/13/18 01/13/18 18:59 06:59 18:59 Intake Total 480 / 480 480 / 480 Output Total 250 / 250 150 / 150 Balance 230 / 230 330 / 330 Weight 88.5 kg Intake: IV 0 / 0 EPINEPHrine (1:1000) Inj 2 MG 0 / 0 In D5W Inj 248 ML @ 2 MCG/MIN 15 mls/hr IV.CONT TITRATE PRN Rx#:[id number] LR 1000 mL Inj 1,000 ML @ 30 0 / 0 mls/hr IV.SIG .Q24H DENIZ Rx#: [id number] Oral 480 / 480 480 / 480 Output: Urine 250 / 250 150 / 150 Other: Date of Last Bowel Movement 01/09/18 Narrative: GENERAL: NAD, AAOx3 SKIN: Warm and dry. HEAD: Atraumatic. Normocephalic. EYES: Pupils equal and round. No scleral icterus. No injection or drainage. ENT: No nasal bleeding or discharge. Mucous membranes pink and moist. NECK: Trachea midline. No JVD. CARDIOVASCULAR: Regular rate and rhythm. Holosystolic murmur noted at the apex. Sternotomy with covering RESPIRATORY: No accessory muscle use. Clear to auscultation. Breath sounds equal bilaterally. GASTROINTESTINAL: Abdomen soft, non-tender, nondistended. Hepatic and splenic margins not palpable. MUSCULOSKELETAL: Extremities without clubbing, cyanosis, or edema. No obvious deformities. NEUROLOGICAL: Awake and alert. No obvious cranial nerve deficits. Motor grossly within normal limits. Five out of 5 muscle strength in the arms and legs. Normal speech. PSYCHIATRIC: Appropriate mood and affect; insight and judgment normal. - Urinary Catheter Management Indwelling Temp Sensing Catheter Cath placed during this visit: yes Reason for continuing: Hourly intake/output Insertion date: 01/10/18 Insertion time: 07:58 Assessment and Plan - Assessment (1) Ischemic cardiomyopathy Code(s): I25.5 - Ischemic cardiomyopathy Status: Acute (2) CAD (coronary artery disease) Code(s): I25.10 - Atherosclerotic heart disease of [place] coronary artery without angina pectoris Status: Acute (3) Mitral regurgitation Code(s): I34.0 - Nonrheumatic mitral (valve) insufficiency Status: Acute (4) Tricuspid regurgitation Code(s): I07.1 - Rheumatic tricuspid insufficiency Status: Acute (5) Acute dyspnea Code(s): R06.00 - Dyspnea, unspecified Status: Acute (6) New onset of congestive heart failure Code(s): I50.9 - Heart failure, unspecified Status: Acute - Plan 1) Acute decompensated systolic heart failure Appears compensated now 2) Ischemic cardiomyopathy EF 30% Concern for EF being 10-15% on ARLETTE during operation, plan to repeat echo today Will need repeat echo in 2-3 months unless further symptomatic 3) Left main disease/mitral regurg/tricuspid regurg s/p CABG x2 POD #3 SAMS to LAD SVG to OM 4) Arimidex stopped due to ischemic heart disease This will have to be reevaluated by Heme/Onc on restarting vs change of meds after surgery 5) Severe MR/TR Unable to fix during the operation due to concern for EF 10-15% by ARLETTE Will need to be reevaluated as well as symptoms, if still significant then consideration of mini-mitral valve repair in the future if EF is better vs mitral clip 6) Fluid overloaded Agree with diuresis (2) CAD (coronary artery disease) Qualifiers: Coronary Disease-Associated Artery/Lesion type: [place] artery (3) Mitral regurgitation Qualifiers: Cardiac valve disease etiology: nonrheumatic Qualified Code(s): I34.0 - Nonrheumatic mitral (valve) insufficiency (4) Tricuspid regurgitation Qualifiers: Cardiac valve disease etiology: nonrheumatic Qualified Code(s): I36.1 - Nonrheumatic tricuspid (valve) insufficiency
--- NOTE | 2018-01-13 14:44 | P.PNCV ---
- Note Subjective/Hospital Course: 57-year-old female, unsure of the name of her new primary care physician, presented to the emergency room on 01/04/2018 with complaint of fatigue for the past 6 months shortness of breath over the past couple of weeks, mainly with exertion. She has noticed some orthopnea, some dyspnea, mainly if she is climbing some stairs. She works at the [employer] and has had some difficulty at work. She has also noted a 3-4 day period of some lower extremity edema, nonproductive cough, some chest pressure when she lies flat. She underwent echocardiogram where she was found to have an ejection fraction of 30%, moderate to severe mitral regurgitation, moderate to severe tricuspid regurgitation. She underwent heart catheterization today, which showed a 70% left main, IVUS area 5.71, proximal LAD 30%, the mid distal LAD 50%, the diagonal 70%. Her RV pressures are 53/0, PA pressure 51/21 with a wedge pressure of 29. We were consulted to evaluate for coronary artery bypass graft x 2, mitral valve repair, tricuspid valve repair. PAST MEDICAL HISTORY: Includes breast cancer with bilateral mastectomy 2013, followed by chemo and radiation, hypertension. She had a pulmonary embolus after her breast reconstruction, was on anticoagulation for 3 months.. 01/06 no chest pain / had episode of short run VT last night K+ replaced, placed on Ntg for surgery on monday 01/08 Discussed clinical, echo and angiography findings with the patient and her this morning. He has asked about alternative institutions for her cardiac cares, specifically [facility]. He wants to think about the options prior to agree with proceeding with surgery on Wednesday morning. Will reproach them tomorrow morning as to specific decision and proceed accordingly. 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 01/09 Lengthy discussion again. OR in am. Still deciding on type of valve should replacement be necessary 01/10 surgery : 1. Severe Left Main Coronary Artery Disease. 2. Severe mitral insufficiency 3. Severe tricuspid insufficiency 4. 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 Urgent Clampless Off-pump Coronary Artery Bypass Grafting x 2 with Left Internal Mammary Artery (SAMS) to Left Anterior Descending (LAD), reverse saphenous vein graft to Obtuse Marginal branch of the Left Circumflex artery 2. Right leg Endoscopic Vein [place] extubated after surgery crystalloid 2500cc, 230cc cell saver 01/11 pt on nasal cannula BP labile , hold on BB for now and diuresis re-eval for later today ASA, statin , plavix will need JESSICA/ eval for Life vest / eval for Mitral Clip after recovery 4-6 weeks discussed with pt and 01/12 chest tube dc without difficulty on room air , gentle diuresis + 7kg on BB , plavix , ASA ambulate / short non sustained afib last pm 01/13 CXR noted, no PTX, some atelectasis left lower lobe + 5 kg / gentle diuresis K+ 5.6 hold Lisinopril / dose of Kayexalate limited 2d echo pending for EF no further Afib noted on amiodarone / will change pain meds Objective: Vital Signs - 24 hr 01/12/18 15:00 01/12/18 15:58 01/12/18 16:00 Temperature 99.0 F Pulse Rate 95 H 94 H 98 H Respiratory Rate 17 17 Blood Pressure 122/62 Pulse Oximetry 93 L 01/12/18 17:00 01/12/18 17:38 01/12/18 19:00 Temperature 98.3 F Pulse Rate 95 H 96 H 100 H Respiratory Rate 20 Blood Pressure 128/60 Pulse Oximetry 90 L 01/12/18 20:00 01/12/18 21:00 01/12/18 21:04 Temperature Pulse Rate 96 H 96 H 94 H Respiratory Rate 17 Blood Pressure Pulse Oximetry 90 L 94 L 01/12/18 22:00 01/12/18 23:00 01/13/18 00:00 Temperature 98.5 F Pulse Rate 96 H 100 H 92 H Respiratory Rate 22 Blood Pressure 123/58 L Pulse Oximetry 91 L 01/13/18 01:00 01/13/18 01:03 01/13/18 02:00 Temperature Pulse Rate 92 H 88 Respiratory Rate 20 Blood Pressure Pulse Oximetry 01/13/18 03:00 01/13/18 04:00 01/13/18 05:00 Temperature 98.3 F Pulse Rate 84 84 84 Respiratory Rate 20 Blood Pressure 102/53 L Pulse Oximetry 96 08/23/18 06:00 01/13/18 07:00 01/13/18 08:00 Temperature 98.6 F Pulse Rate 86 86 81 Respiratory Rate Blood Pressure 144/81 H Pulse Oximetry 91 L 95 01/13/18 08:37 01/13/18 08:49 01/13/18 09:00 Temperature Pulse Rate 90 90 90 Respiratory Rate 18 Blood Pressure Pulse Oximetry 94 L GENERAL: A&O x 3 , feels fair SKIN: Warm and dry. prevena dressing to chest , incision intact to right leg HEAD: Normocephalic. EYES: No scleral icterus. No injection or drainage. NECK: Supple, trachea midline. No JVD or lymphadenopathy. CARDIOVASCULAR: Regular rate and rhythm soft sm , no gallops, or rubs. RESPIRATORY: Breath sounds equal bilaterally. No accessory muscle use. diminished in bases, L> R few basilar crackles GASTROINTESTINAL: Abdomen soft, non-tender, nondistended. MUSCULOSKELETAL: No cyanosis, or edema. BACK: Nontender without obvious deformity. No CVA tenderness. Labs: Laboratory Results - last 12 hr 01/13/18 01/13/18 04:35 12:58 Sodium 134 L Potassium 5.6 H D Chloride 99 Carbon Dioxide 28.9 Anion Gap 6 BUN 26 H Creatinine 1.29 H Estimated GFR 43 L POC Glucose 121 H Random Glucose 122 H Calcium 8.3 L Magnesium 2.6 H Result Diagrams: 01/12/18 04:30 01/13/18 04:35 Telemetry: NSR - Plan (2) New onset of congestive heart failure Plan: gentle diuresis resume JESSICA when K+ improved ( 5.6) on coreg limited echo pending today (3) Ischemic cardiomyopathy Plan: will discuss need for life vest with Dr Rivera (4) CAD (coronary artery disease) Plan: ASA plavix, statin diuresis OOB , ambulate change to ultram for pain control CM for HHC (5) Mitral regurgitation Plan: eval for mitral clip as outpt repeat echo 2-4 weeks (6) Tricuspid regurgitation (7) S/P CABG x 2 Plan: ASA, statin , hold on BB for now OOB ambulate pulm toileting (4) CAD (coronary artery disease) Qualifiers: Coronary Disease-Associated Artery/Lesion type: [place] artery (5) Mitral regurgitation Qualifiers: Cardiac valve disease etiology: nonrheumatic Qualified Code(s): I34.0 - Nonrheumatic mitral (valve) insufficiency (6) Tricuspid regurgitation Qualifiers: Cardiac valve disease etiology: nonrheumatic Qualified Code(s): I36.1 - Nonrheumatic tricuspid (valve) insufficiency
[2018-01-14 04:52] LABS: Alanine Aminotransferase 33 U/L (10-53); Albumin 2.8 g/dL (3.4-5.0); Alkaline Phosphatase 155 U/L (45-117); Anion Gap 9 meq/L (5-15); Aspartate Aminotransferase 48 U/L (15-37); Blood Urea Nitrogen 38 mg/dL (7-18); Calcium 8.2 mg/dL (8.5-10.1); Carbon Dioxide 25.1 meq/L (21.0-32.0); Chloride 99 meq/L (98-107); Chol/HDL Ratio 2.57 Ratio; Cholesterol 110 mg/dL (120-200); Glomerular Filtration Rate 48 mL/min (>89); Glucose,Random 99 mg/dL (74-106); HDL Cholesterol 42.7 mg/dL (40.0-60.0); LDL Cholesterol,Calculated 47 mg/dL (0-99); Magnesium 2.6 mg/dL (1.5-2.5); Potassium 5.8 meq/L (3.5-5.1); Sodium 133 meq/L (136-145); Total Protein 6.3 g/dL (6.4-8.2); Triglycerides 101 mg/dL (42-150)
[2018-01-14] MEDS: Docusate Sodium 100 MG Capsule PO SCH ×2 (09:04→20:37)
[2018-01-14] MEDS: Amiodarone 200 MG Tablet PO SCH ×2 (09:04→20:34)
[2018-01-14] MEDS: Multivitamin/Minerals Therapeutic Tablet PO SCH (09:05)
--- NOTE | 2018-01-14 11:11 | ECHRPT ---
Indication: CARDIOMYOPATHY CONCLUSIONS Mildly dilated left ventricle. Wall thickness is normal. The basal posterior wall contracts normally ; all other garcia are severely hypokinetic. The left ventricular systolic function is severely reduced with an estimated ejection fraction of 20%. The left atrial size is mildly dilated. The right atrial size is mildly dilated. Mild mitral valve regurgitation. There is mild tricuspid valve regurgitation. The estimated pulmonary arterial pressure is 33 mmHg. BP: / HR: Rhythm: Sinus MEASUREMENTS (Male / Female) Normal Values Technical Quality:Fair 2D ECHO LV Diastolic Diameter PLAX 5.9 cm 4.2 - 5.9 / 3.9 - 5.3 cm LV Systolic Diameter PLAX 5.7 cm IVS Diastolic Thickness 0.7 cm 0.6 - 1.0 / 0.6 - 0.9 cm LVPW Diastolic Thickness 0.7 cm 0.6 - 1.0 / 0.6 - 0.9 cm LV Relative Wall Thickness 0.2 RV Internal Dim ED PLAX 2.9 cm LVOT Diameter 1.7 cm Aortic Root Diameter 2.9 cm LA Systolic Diameter LX 3.9 cm 3.0 - 4.0 / 2.7 - 3.8 cm M-MODE AV Cusp Separation MM 1.8 cm DOPPLER AV Peak Velocity 84.1 cm/s AV Peak Gradient 2.8 mmHg AV Mean Gradient 2.0 mmHg AV Velocity Time Integral 13.8 cm LVOT Peak Velocity 43.6 cm/s LVOT Peak Gradient 0.8 mmHg LVOT Velocity Time Integral 6.7 cm AV Area Cont Eq vti 1.1 cm AV Area Cont Eq pk 1.2 cm Mitral E Point Velocity 75.5 cm/s Mitral A Point Velocity 35.5 cm/s Mitral E to A Ratio 2.1 LV E' Lateral Velocity 8.2 cm/s Mitral E to LV E' Lateral Ratio 9.2 LV E' Septal Velocity 7.8 cm/s Mitral E to LV E' Septal Ratio 9.7 TV Peak Velocity 267.0 cm/s TR Peak Velocity 242.0 cm/s TR Peak Gradient 23.4 mmHg Right Atrial Pressure 10.0 mmHg Pulmonary Artery Systolic Pressu 33.4 mmHg Right Ventricular Systolic Press 33.4 mmHg PV Peak Velocity 45.1 cm/s PV Peak Gradient 0.8 mmHg FINDINGS LEFT VENTRICLE Mildly dilated left ventricle. Wall thickness is normal. The basal posterior wall contracts normally ; all other garcia are severely hypokinetic. The left ventricular systolic function is severely reduced with an estimated ejection fraction of 20 %. RIGHT VENTRICLE Normal right ventricular size and systolic function. LEFT ATRIUM The left atrial size is mildly dilated. RIGHT ATRIUM The right atrial size is mildly dilated. ATRIAL SEPTUM Normal atrial septal thickness without atrial level shunting by limited color doppler interrogation. AORTA The aortic root and proximal ascending aorta are normal in size on limited imaging. MITRAL VALVE Mild mitral valve regurgitation. AORTIC VALVE The aortic valve is not well visualized. TRICUSPID VALVE There is mild tricuspid valve regurgitation. The estimated pulmonary arterial pressure is 33 mmHg. PULMONARY VALVE No pulmonary valve regurgitation or stenosis. VESSELS The inferior vena cava is normal in size. PERICARDIUM No pericardial effusion. Christopher Barrera MD (Electronically Signed) Final Date:14 January 2018 11:10
--- NOTE | 2018-01-14 14:06 | P.PNCV ---
- Note Subjective/Hospital Course: 57-year-old female, unsure of the name of her new primary care physician, presented to the emergency room on 01/04/2018 with complaint of fatigue for the past 6 months shortness of breath over the past couple of weeks, mainly with exertion. She has noticed some orthopnea, some dyspnea, mainly if she is climbing some stairs. She works at the [employer] and has had some difficulty at work. She has also noted a 3-4 day period of some lower extremity edema, nonproductive cough, some chest pressure when she lies flat. She underwent echocardiogram where she was found to have an ejection fraction of 30%, moderate to severe mitral regurgitation, moderate to severe tricuspid regurgitation. She underwent heart catheterization today, which showed a 70% left main, IVUS area 5.71, proximal LAD 30%, the mid distal LAD 50%, the diagonal 70%. Her RV pressures are 53/0, PA pressure 51/21 with a wedge pressure of 29. We were consulted to evaluate for coronary artery bypass graft x 2, mitral valve repair, tricuspid valve repair. PAST MEDICAL HISTORY: Includes breast cancer with bilateral mastectomy 2013, followed by chemo and radiation, hypertension. She had a pulmonary embolus after her breast reconstruction, was on anticoagulation for 3 months.. 01/06 no chest pain / had episode of short run VT last night K+ replaced, placed on Ntg for surgery on monday 01/08 Discussed clinical, echo and angiography findings with the patient and her this morning. He has asked about alternative institutions for her cardiac cares, specifically [facility]. He wants to think about the options prior to agree with proceeding with surgery on Wednesday morning. Will reproach them tomorrow morning as to specific decision and proceed accordingly. 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 01/09 Lengthy discussion again. OR in am. Still deciding on type of valve should replacement be necessary 01/10 surgery : 1. Severe Left Main Coronary Artery Disease. 2. Severe mitral insufficiency 3. Severe tricuspid insufficiency 4. 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 Urgent Clampless Off-pump Coronary Artery Bypass Grafting x 2 with Left Internal Mammary Artery (SAMS) to Left Anterior Descending (LAD), reverse saphenous vein graft to Obtuse Marginal branch of the Left Circumflex artery 2. Right leg Endoscopic Vein [place] extubated after surgery crystalloid 2500cc, 230cc cell saver 01/11 pt on nasal cannula BP labile , hold on BB for now and diuresis re-eval for later today ASA, statin , plavix will need JESSICA/ eval for Life vest / eval for Mitral Clip after recovery 4-6 weeks discussed with pt and 01/12 chest tube dc without difficulty on room air , gentle diuresis + 7kg on BB , plavix , ASA ambulate / short non sustained afib last pm 01/13 CXR noted, no PTX, some atelectasis left lower lobe + 5 kg / gentle diuresis K+ 5.6 hold Lisinopril / dose of Kayexalate limited 2d echo pending for EF no further Afib noted on amiodarone / will change pain meds 01/14 Doing well Potassium 5.8. Monitor electrolytes. Expect discharge over the next day or two with LifeVest Echo confirms severe left ventricular dysfunction Objective: Vital Signs - 24 hr 01/13/18 15:00 01/13/18 16:00 01/13/18 17:00 Temperature 97.8 F Pulse Rate 75 85 90 Respiratory Rate 20 Blood Pressure 124/64 Pulse Oximetry 95 01/13/18 18:00 01/13/18 19:00 01/13/18 19:21 Temperature 97.9 F Pulse Rate 85 79 Respiratory Rate 18 Blood Pressure 150/90 H Pulse Oximetry 94 L 95 01/13/18 20:00 01/13/18 21:00 01/13/18 22:00 Temperature Pulse Rate 76 76 78 Respiratory Rate Blood Pressure Pulse Oximetry 94 L 01/13/18 23:00 01/14/18 00:00 01/14/18 00:23 Temperature 98.2 F Pulse Rate 78 80 Respiratory Rate 18 Blood Pressure 120/58 L Pulse Oximetry 93 L 93 L 01/14/18 01:00 01/14/18 02:00 01/14/18 03:00 Temperature 98.3 F Pulse Rate 78 76 74 Respiratory Rate 18 Blood Pressure 98/51 L Pulse Oximetry 93 L 01/14/18 04:00 01/14/18 05:00 01/14/18 05:59 Temperature Pulse Rate 73 76 Respiratory Rate Blood Pressure Pulse Oximetry 93 L 01/14/18 06:00 01/14/18 07:00 01/14/18 09:00 Temperature 98.2 F Pulse Rate 75 77 78 Respiratory Rate 14 Blood Pressure 172/98 H Pulse Oximetry 01/14/18 09:40 01/14/18 11:00 01/14/18 12:00 Temperature 98.7 F Pulse Rate 77 77 Respiratory Rate 16 Blood Pressure 116/59 L Pulse Oximetry 95 93 L 01/14/18 13:00 Temperature Pulse Rate 77 Respiratory Rate Blood Pressure Pulse Oximetry Labs: Laboratory Results - last 12 hr 01/14/18 01/14/18 01/14/18 03:50 07:50 11:45 Sodium 133 L Potassium 5.8 H Chloride 99 Carbon Dioxide 25.1 Anion Gap 9 BUN 38 H Creatinine 1.16 H Estimated GFR 48 L POC Glucose 90 98 Random Glucose 99 Calcium 8.2 L Magnesium 2.6 H Total Bilirubin 0.6 AST 48 H ALT 33 Alkaline Phosphatase 155 H Total Protein 6.3 L D Albumin 2.8 L Triglycerides 101 Cholesterol 110 L LDL Cholesterol, Calc 47 HDL Cholesterol 42.7 Cholesterol/HDL Ratio 2.57 Result Diagrams: 01/12/18 04:30 01/14/18 03:50 - Plan (2) New onset of congestive heart failure Plan: gentle diuresis resume JESSICA when K+ improved ( 5.6) on coreg limited echo pending today (3) Ischemic cardiomyopathy Plan: will discuss need for life vest with Dr Rivera (4) CAD (coronary artery disease) Plan: ASA plavix, statin diuresis OOB , ambulate change to ultram for pain control CM for HHC (5) Mitral regurgitation Plan: eval for mitral clip as outpt repeat echo 2-4 weeks (6) Tricuspid regurgitation (7) S/P CABG x 2 Plan: ASA, statin , hold on BB for now OOB ambulate pulm toileting (4) CAD (coronary artery disease) Qualifiers: Coronary Disease-Associated Artery/Lesion type: [place] artery (5) Mitral regurgitation Qualifiers: Cardiac valve disease etiology: nonrheumatic Qualified Code(s): I34.0 - Nonrheumatic mitral (valve) insufficiency (6) Tricuspid regurgitation Qualifiers: Cardiac valve disease etiology: nonrheumatic Qualified Code(s): I36.1 - Nonrheumatic tricuspid (valve) insufficiency
[2018-01-14] MEDS: Insulin NovoLOG Aspart Correctional Sugar Inj SQ SCH ×5 (14:49→20:41)
[2018-01-14] MEDS: Polyethylene Glycol 3350 17 GM Packet PO SCH (14:50)
[2018-01-14] MEDS: Anastrozole 1 MG Tablet PO SCH (16:49)
--- NOTE | 2018-01-14 17:38 | P.PNCA ---
Subjective Interval history: No events overnight Feels somewhat better Physical Exam Vital signs: Vital Signs 01/13/18 18:00 01/13/18 19:00 01/13/18 19:21 Temperature 97.9 F Pulse Rate 85 79 Respiratory Rate 18 Blood Pressure 150/90 H Pulse Oximetry 94 L 95 01/13/18 20:00 01/13/18 21:00 01/13/18 22:00 Temperature Pulse Rate 76 76 78 Respiratory Rate Blood Pressure Pulse Oximetry 94 L 01/13/18 23:00 01/14/18 00:00 01/14/18 00:23 Temperature 98.2 F Pulse Rate 78 80 Respiratory Rate 18 Blood Pressure 120/58 L Pulse Oximetry 93 L 93 L 01/14/18 01:00 01/14/18 02:00 01/14/18 03:00 Temperature 98.3 F Pulse Rate 78 76 74 Respiratory Rate 18 Blood Pressure 98/51 L Pulse Oximetry 93 L 01/14/18 04:00 01/14/18 05:00 01/14/18 05:59 Temperature Pulse Rate 73 76 Respiratory Rate Blood Pressure Pulse Oximetry 93 L 01/14/18 06:00 01/14/18 07:00 01/14/18 09:00 Temperature 98.2 F Pulse Rate 75 77 78 Respiratory Rate 14 Blood Pressure 172/98 H Pulse Oximetry 01/14/18 09:40 01/14/18 11:00 01/14/18 12:00 Temperature 98.7 F Pulse Rate 77 77 Respiratory Rate 16 Blood Pressure 116/59 L Pulse Oximetry 95 93 L 01/14/18 13:00 Temperature Pulse Rate 77 Respiratory Rate Blood Pressure Pulse Oximetry Intake & Output 01/13/18 01/14/18 01/14/18 18:59 06:59 18:59 Intake Total 2210 / 2210 480 / 480 Output Total 560 / 560 400 / 400 Balance 1650 / 1650 80 / 80 Weight 82.5 kg Intake: Oral 480 / 480 480 / 480 Anesthesia Amount 1500 / 1500 Cell Saver Amount 230 / 230 Output: Urine 150 / 150 400 / 400 Urine Amount (Catheter) 300 / 300 Indwelling Temp Sensing 300 / 300 Catheter Chest Tube Drainage 110 / 110 Pleural/Mediastinal 110 / 110 Other: # Voids 2 2 # Incontinent Voids 2 Date of Last Bowel Movement 01/09/18 01/14/18 01/14/18 # Bowel Movements 0 1 Narrative: GENERAL: NAD, AAOx3 SKIN: Warm and dry. HEAD: Atraumatic. Normocephalic. EYES: Pupils equal and round. No scleral icterus. No injection or drainage. ENT: No nasal bleeding or discharge. Mucous membranes pink and moist. NECK: Trachea midline. No JVD. CARDIOVASCULAR: Regular rate and rhythm. Holosystolic murmur noted at the apex. Sternotomy with covering RESPIRATORY: No accessory muscle use. Clear to auscultation. Breath sounds equal bilaterally. GASTROINTESTINAL: Abdomen soft, non-tender, nondistended. Hepatic and splenic margins not palpable. MUSCULOSKELETAL: Extremities without clubbing, cyanosis, or edema. No obvious deformities. NEUROLOGICAL: Awake and alert. No obvious cranial nerve deficits. Motor grossly within normal limits. Five out of 5 muscle strength in the arms and legs. Normal speech. PSYCHIATRIC: Appropriate mood and affect; insight and judgment normal. - Urinary Catheter Management Indwelling Temp Sensing Catheter Cath placed during this visit: yes Reason for continuing: Hourly intake/output Insertion date: 01/10/18 Insertion time: 07:58 Assessment and Plan - Assessment (1) Ischemic cardiomyopathy Code(s): I25.5 - Ischemic cardiomyopathy Status: Acute (2) CAD (coronary artery disease) Code(s): I25.10 - Atherosclerotic heart disease of [place] coronary artery without angina pectoris Status: Acute (3) Mitral regurgitation Code(s): I34.0 - Nonrheumatic mitral (valve) insufficiency Status: Acute (4) Tricuspid regurgitation Code(s): I07.1 - Rheumatic tricuspid insufficiency Status: Acute (5) Acute dyspnea Code(s): R06.00 - Dyspnea, unspecified Status: Acute (6) New onset of congestive heart failure Code(s): I50.9 - Heart failure, unspecified Status: Acute - Plan 1) Acute decompensated systolic heart failure Appears compensated now 2) Ischemic cardiomyopathy EF 20% on repeat echo Plan on Lifevest Will need repeat echo in 3 months, if still low will need ICD 3) Left main disease/mitral regurg/tricuspid regurg s/p CABG x2 POD #4 SAMS to LAD SVG to OM 4) Arimidex stopped due to ischemic heart disease This will have to be reevaluated by Heme/Onc on restarting vs change of meds after surgery 5) Severe MR/TR Unable to fix during the operation due to concern for EF 10-15% by ARLETTE Mild MR on repeat echo Will continue to follow 6) Fluid overloaded Agree with diuresis (2) CAD (coronary artery disease) Qualifiers: Coronary Disease-Associated Artery/Lesion type: [place] artery (3) Mitral regurgitation Qualifiers: Cardiac valve disease etiology: nonrheumatic Qualified Code(s): I34.0 - Nonrheumatic mitral (valve) insufficiency (4) Tricuspid regurgitation Qualifiers: Cardiac valve disease etiology: nonrheumatic Qualified Code(s): I36.1 - Nonrheumatic tricuspid (valve) insufficiency
[2018-01-15] MEDS: Docusate Sodium 100 MG Capsule PO SCH (09:16)
[2018-01-15] MEDS: Multivitamin/Minerals Therapeutic Tablet PO SCH (09:17)
[2018-01-15] MEDS: Amiodarone 200 MG Tablet PO SCH (09:17)
--- NOTE | 2018-01-15 10:06 | P.PN ---
Subjective Interval history: Pt notes nausea, but no cp/sob Physical Exam Vital signs: Vital Signs 01/14/18 11:00 01/14/18 12:00 01/14/18 13:00 Temperature 98.7 F Pulse Rate 77 77 77 Respiratory Rate 16 Blood Pressure 116/59 L Pulse Oximetry 93 L 01/14/18 15:00 01/14/18 16:00 01/14/18 17:00 Temperature 98.6 F Pulse Rate 79 78 88 Respiratory Rate 16 Blood Pressure 126/64 Pulse Oximetry 95 01/14/18 18:00 01/14/18 19:00 01/14/18 20:00 Temperature 98 F Pulse Rate 79 87 Respiratory Rate 16 Blood Pressure 147/75 H Pulse Oximetry 99 99 01/14/18 23:00 01/15/18 00:00 01/15/18 01:18 Temperature 98.3 F Pulse Rate 80 77 75 Respiratory Rate 16 Blood Pressure 133/60 Pulse Oximetry 95 01/15/18 02:00 01/15/18 03:00 01/15/18 04:00 Temperature 98.2 F Pulse Rate 77 77 74 Respiratory Rate 20 Blood Pressure 156/65 H Pulse Oximetry 93 L 01/15/18 05:00 01/15/18 06:00 Temperature Pulse Rate 75 73 Respiratory Rate Blood Pressure Pulse Oximetry Intake & Output 01/14/18 01/15/18 01/15/18 18:59 06:59 18:59 Intake Total 480 / 480 240 / 240 Output Total 900 / 900 300 / 300 Balance -420 / -420 -60 / -60 Weight 84.5 kg Intake: Oral 480 / 480 240 / 240 Output: Urine 600 / 600 300 / 300 Urine Amount (Catheter) 300 / 300 Indwelling Temp Sensing 300 / 300 Catheter Other: # Voids 3 3 Date of Last Bowel Movement 01/14/18 01/14/18 # Bowel Movements 1 - Constitutional no acute distress - Routine HEENT Exam Head: Present: normocephalic - Routine Neck Exam Present: supple, JVD - Routine Respiratory Exam Present: CTA bilaterally. Absent: accessory muscle use - Routine Cardiovascular Exam Present: RRR, S1, murmur - Detailed Cardiovascular Exam: Murmur 1 Timing: early - Routine Abdominal Exam Present: soft - Routine Extremities Exam Present: edema - Urinary Catheter Management Indwelling Temp Sensing Catheter Cath placed during this visit: yes Reason for continuing: Hourly intake/output Insertion date: 01/10/18 Insertion time: 07:58 Results - Labs CBC & Chem 7: 01/12/18 04:30 01/14/18 03:50 Laboratory Results - last 24 hr 01/14/18 01/14/18 01/14/18 11:45 16:44 19:57 POC Glucose 98 104 133 H 01/15/18 07:53 POC Glucose 92 - Procedures CARDIAC CATH WITH LESIONS IN LAD AND CIRCUMFLEX AND VALVE ISSUES WITH MITRAL AND TRICUSPID 8-16 Assessment and Plan - Assessment (1) Ischemic cardiomyopathy Code(s): I25.5 - Ischemic cardiomyopathy Status: Acute (2) CAD (coronary artery disease) Code(s): I25.10 - Atherosclerotic heart disease of [place] coronary artery without angina pectoris Status: Acute (3) Mitral regurgitation Code(s): I34.0 - Nonrheumatic mitral (valve) insufficiency Status: Acute (4) Tricuspid regurgitation Code(s): I07.1 - Rheumatic tricuspid insufficiency Status: Acute (5) Acute dyspnea Code(s): R06.00 - Dyspnea, unspecified Status: Acute (6) New onset of congestive heart failure Code(s): I50.9 - Heart failure, unspecified Status: Acute - Plan 1) Acute decompensated systolic heart failure Appears compensated now 2) Ischemic cardiomyopathy EF 20% on repeat echo Plan on Lifevest Will need repeat echo in 3 months, if still low will need ICD 3) Left main disease/mitral regurg/tricuspid regurg s/p CABG x2 POD #4 SAMS to LAD SVG to OM 4) Arimidex stopped due to ischemic heart disease This will have to be reevaluated by Heme/Onc on restarting vs change of meds after surgery 5) Severe MR/TR Unable to fix during the operation due to concern for EF 10-15% by ARLETTE Mild MR on repeat echo Will continue to follow 6) Fluid overloaded off diuretics May be able to go home soon, needs lifevest., on jong/bb (2) CAD (coronary artery disease) Qualifiers: Coronary Disease-Associated Artery/Lesion type: [place] artery (3) Mitral regurgitation Qualifiers: Cardiac valve disease etiology: nonrheumatic Qualified Code(s): I34.0 - Nonrheumatic mitral (valve) insufficiency (4) Tricuspid regurgitation Qualifiers: Cardiac valve disease etiology: nonrheumatic Qualified Code(s): I36.1 - Nonrheumatic tricuspid (valve) insufficiency
[2018-01-15] MEDS: Anastrozole 1 MG Tablet PO SCH (10:23)
--- NOTE | 2018-01-15 10:24 | P.PNCV ---
- Note CVT: Post Op Day #: 5 Subjective/Hospital Course: 57-year-old female, unsure of the name of her new primary care physician, presented to the emergency room on 01/04/2018 with complaint of fatigue for the past 6 months shortness of breath over the past couple of weeks, mainly with exertion. She has noticed some orthopnea, some dyspnea, mainly if she is climbing some stairs. She works at the [employer] and has had some difficulty at work. She has also noted a 3-4 day period of some lower extremity edema, nonproductive cough, some chest pressure when she lies flat. She underwent echocardiogram where she was found to have an ejection fraction of 30%, moderate to severe mitral regurgitation, moderate to severe tricuspid regurgitation. She underwent heart catheterization today, which showed a 70% left main, IVUS area 5.71, proximal LAD 30%, the mid distal LAD 50%, the diagonal 70%. Her RV pressures are 53/0, PA pressure 51/21 with a wedge pressure of 29. We were consulted to evaluate for coronary artery bypass graft x 2, mitral valve repair, tricuspid valve repair. PAST MEDICAL HISTORY: Includes breast cancer with bilateral mastectomy 2013, followed by chemo and radiation, hypertension. She had a pulmonary embolus after her breast reconstruction, was on anticoagulation for 3 months.. 01/06 no chest pain / had episode of short run VT last night K+ replaced, placed on Ntg for surgery on monday 01/08 Discussed clinical, echo and angiography findings with the patient and her this morning. He has asked about alternative institutions for her cardiac cares, specifically [facility]. He wants to think about the options prior to agree with proceeding with surgery on Wednesday. Will reproach them tomorrow morning as to specific decision and proceed accordingly. 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 01/09 Lengthy discussion again. OR in am. Still deciding on type of valve should replacement be necessary 01/10 surgery : 1. Severe Left Main Coronary Artery Disease. 2. Severe mitral insufficiency 3. Severe tricuspid insufficiency 4. 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 Urgent Clampless Off-pump Coronary Artery Bypass Grafting x 2 with Left Internal Mammary Artery (SAMS) to Left Anterior Descending (LAD), reverse saphenous vein graft to Obtuse Marginal branch of the Left Circumflex artery 2. Right leg Endoscopic Vein [place] extubated after surgery crystalloid 2500cc, 230cc cell saver 01/11 pt on nasal cannula BP labile , hold on BB for now and diuresis re-eval for later today ASA, statin , plavix will need JESSICA/ eval for Life vest / eval for Mitral Clip after recovery 4-6 weeks discussed with pt and 01/12 chest tube dc without difficulty on room air , gentle diuresis + 7kg on BB , plavix , ASA ambulate / short non sustained afib last pm 01/13 CXR noted, no PTX, some atelectasis left lower lobe + 5 kg / gentle diuresis K+ 5.6 hold Lisinopril / dose of Kayexalate limited 2d echo pending for EF no further Afib noted on amiodarone / will change pain meds 01/14 Doing well Potassium 5.8. Monitor electrolytes. Expect discharge over the next day or two with LifeVest Echo confirms severe left ventricular dysfunction 01/15/18 No complaints today. awaiting Lifevest Objective: Vital Signs - 24 hr 01/14/18 11:00 01/14/18 12:00 01/14/18 13:00 Temperature 98.7 F Pulse Rate 77 77 77 Respiratory Rate 16 Blood Pressure 116/59 L Pulse Oximetry 93 L 01/14/18 15:00 01/14/18 16:00 01/14/18 17:00 Temperature 98.6 F Pulse Rate 79 78 88 Respiratory Rate 16 Blood Pressure 126/64 Pulse Oximetry 95 01/14/18 18:00 01/14/18 19:00 01/14/18 20:00 Temperature 98 F Pulse Rate 79 87 Respiratory Rate 16 Blood Pressure 147/75 H Pulse Oximetry 99 99 01/14/18 23:00 01/15/18 00:00 01/15/18 01:18 Temperature 98.3 F Pulse Rate 80 77 75 Respiratory Rate 16 Blood Pressure 133/60 Pulse Oximetry 95 01/15/18 02:00 01/15/18 03:00 01/15/18 04:00 Temperature 98.2 F Pulse Rate 77 77 74 Respiratory Rate 20 Blood Pressure 156/65 H Pulse Oximetry 93 L 01/15/18 05:00 01/15/18 06:00 01/15/18 07:00 Temperature 97.4 F L Pulse Rate 75 73 78 Respiratory Rate 18 Blood Pressure 139/68 Pulse Oximetry 92 L Labs: Laboratory Results - last 12 hr 01/15/18 07:53 POC Glucose 92 Result Diagrams: 01/12/18 04:30 01/14/18 03:50 Imaging: Chest CTA 01/04/18 15:55 CONCLUSION: 1. No evidence of pulmonary emboli. 2. Bilateral pleural effusions and mild to moderate cardiomegaly. Venous Doppler Study 01/04/18 15:56 CONCLUSION: 1. The study is negative for bilateral lower extremity deep venous thrombosis. Carotid Doppler Study 01/06/18 15:34 CONCLUSION: 1. Right Internal Carotid Artery: Mild soft plaquing in the distal common carotid artery. No sonographic or Doppler findings of a hemodynamically significant stenosis 2. Left Internal Carotid Artery: Minimal athetotic plaquing in the proximal internal. No sonographic or Doppler findings of a hemodynamically significant stenosis. 3. Antegrade flow in both vertebral arteries. Lower Extremity Ultrasound 01/06/18 15:34 CONCLUSION: Venous mapping as above. Chest X-Ray 01/13/18 06:00 CONCLUSION: Unchanged left lower lobe infiltrate with improving right lower lobe infiltrate. Cardiomegaly. Cardiovascular: RRR Pulmonary: CTA GI/: NABS Incision: dry and intact - Plan (2) New onset of congestive heart failure Plan: gentle diuresis resume JESSICA when K+ improved ( 5.6) on coreg limited echo pending today (3) Ischemic cardiomyopathy Plan: will discuss need for life vest with Dr Rivera (4) CAD (coronary artery disease) Plan: ASA plavix, statin diuresis OOB , ambulate change to ultram for pain control CM for HHC (5) Mitral regurgitation Plan: eval for mitral clip as outpt repeat echo 2-4 weeks (6) Tricuspid regurgitation (7) S/P CABG x 2 Plan: ASA, statin , hold on BB for now OOB ambulate pulm toileting Patient resdy for discharge once Lifevest is available. (4) CAD (coronary artery disease) Qualifiers: Coronary Disease-Associated Artery/Lesion type: [place] artery (5) Mitral regurgitation Qualifiers: Cardiac valve disease etiology: nonrheumatic Qualified Code(s): I34.0 - Nonrheumatic mitral (valve) insufficiency (6) Tricuspid regurgitation Qualifiers: Cardiac valve disease etiology: nonrheumatic Qualified Code(s): I36.1 - Nonrheumatic tricuspid (valve) insufficiency
[2018-01-15 15:15] VITALS: BP 133/64; RESP 16; TEMP 97.6
[2018-01-15 15:28] VITALS: O2SAT 93
[2018-01-15] MEDS: Polyethylene Glycol 3350 17 GM Packet PO SCH (15:41)
[2018-01-15] MEDS: Insulin NovoLOG Aspart Correctional Sugar Inj SQ SCH ×3 (15:41→18:39)
[2018-01-15 17:44] VITALS: PULSE 78
--- NOTE | 2018-02-01 14:52 | P.DS ---
Date of admission: 01/07/18 14:50 Primary care physician: Maryellen Sutton MD Attending physician on discharge: Sammi Ambrosio Anticipated date of discharge: 01/15/18 Brief History from admission: Lisa Carbajal is a pleasant 57-year-old female who presented to [facility] Emergency Room due to shortness of breath for the past 3-4 weeks. She has noticed some orthopnea and dyspnea, especially with exertion. If she climbs a flight of stairs, she gets significantly short of breath. Does not really notice much chest pain. She has also had 3-4 days of increased bilateral pedal edema. She has had a nonproductive cough and some chest pressure when she lies flat. She previously underwent chemo and radiation in 2013, for breast cancer and is currently on Arimidex. She states that when she was undergoing chemo in 2013. She underwent an echocardiogram and was found to have an ejection fraction of 30% with moderate to severe mitral regurgitation and [id number] tricuspid regurgitation. PAST MEDICAL HISTORY: Breast cancer, Hypertension, Pulmonary embolism pt then underwent cardiac cath FINDINGS: LEFT MAIN: Ostial 70% disease. It bifurcates into an LAD and circumflex. LAD: Moderate sized vessel with a 50% lesion in the mid portion. Distally has good runoff. It gives off 1 small diagonal, which has 70% ostial stenosis, but is overall about a millimeter in size. LEFT CIRCUMFLEX: Moderate size vessel with no significant disease. It gives off 2 obtuse marginals with no significant disease. RCA: Normal-sized vessel with a 40% lesion in the mid portion. Distally it supplies a PDA and no significant disease. HEMODYNAMICS: RA7. RV 53/0, RVEDP 11. PA 51/21, mean PA 33. Wedge 29. LVEDP 15. IMPRESSION: 1. Compensated systolic heart failure. 2. Ischemic cardiomyopathy with left main disease and an ejection fraction of 30%. 3. Mild pulmonary hypertension, most likely due to severe mitral regurgitation and V waves noted. RECOMMENDATIONS: 1. Ms. Carbajal appears to have left main disease and was recommended for CT surgery. Arimidex was held due to ischemic heart disease. This will have to be reevaluated post CABG/MVR/TVR. DS: Diagnosis - Discharge Diagnosis (1) Acute dyspnea Status: Acute (2) New onset of congestive heart failure Status: Acute (3) Ischemic cardiomyopathy Status: Acute (4) CAD (coronary artery disease) Status: Acute (5) Mitral regurgitation Status: Acute (6) Tricuspid regurgitation Status: Acute (7) S/P CABG x 2 Status: Acute DS: Summary Hospital Course: 01/06 no chest pain / had episode of short run VT last night K+ replaced, placed on Ntg for surgery on monday 01/08 Discussed clinical, echo and angiography findings with the patient and her this morning. He has asked about alternative institutions for her cardiac cares, specifically [facility]. He wants to think about the options prior to agree with proceeding with surgery on Wednesday morning. Will reproach them tomorrow morning as to specific decision and proceed accordingly. 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 01/09 Lengthy discussion again. OR in am. Still deciding on type of valve should replacement be necessary 01/10 surgery : 1. Severe Left Main Coronary Artery Disease. 2. Severe mitral insufficiency 3. Severe tricuspid insufficiency 4. 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 Urgent Clampless Off-pump Coronary Artery Bypass Grafting x 2 with Left Internal Mammary Artery (SAMS) to Left Anterior Descending (LAD), reverse saphenous vein graft to Obtuse Marginal branch of the Left Circumflex artery 2. Right leg Endoscopic Vein [place] extubated after surgery crystalloid 2500cc, 230cc cell saver 01/11 pt on nasal cannula BP labile , hold on BB for now and diuresis re-eval for later today ASA, statin , plavix will need JESSICA/ eval for Life vest / eval for Mitral Clip after recovery 4-6 weeks discussed with pt and 01/12 chest tube dc without difficulty on room air , gentle diuresis + 7kg on BB , plavix , ASA ambulate / short non sustained afib last pm 01/13 CXR noted, no PTX, some atelectasis left lower lobe + 5 kg / gentle diuresis K+ 5.6 hold Lisinopril / dose of Kayexalate limited 2d echo pending for EF no further Afib noted on amiodarone / will change pain meds 01/14 Doing well Potassium 5.8. Monitor electrolytes. Expect discharge over the next day or two with LifeVest Echo confirms severe left ventricular dysfunction EF 20% 01/15 pt discharged with Life vest will need to be evaluated for Mitral Clip in 4-6 weeks - Time Spent with Patient Total time spent providing and/or coordinating discharge services: Greater than 30 minutes - Quality: VTE Deep Vein Thrombosis/Pulmonary Embolism Present on Admission: No Exam - Constitutional no acute distress - Routine HEENT Exam Head: Present: normocephalic Eye: Present: EOMI, PERRL, normal accommodation - Routine Neck Exam Present: supple, full ROM - Routine Chest/Breast/Axilla Exam Chest wall: Present: tenderness Breast: Present: scars, right mastectomy, left mastectomy - Routine Respiratory Exam Present: CTA bilaterally - Routine Cardiovascular Exam Present: RRR, S1, S2, murmur - Routine Abdominal Exam Present: soft, normoactive bowel sounds - Routine Extremities Exam Present: edema, full ROM, pulses intact, normal capillary refill - Routine Skin Exam Present: intact, warm, wounds Comments: prevena dressing to chest - Routine Neurological Exam Present: alert, oriented X3, CN II-XII intact Results Procedures completed during hospitalization: CARDIAC CATH WITH LESIONS IN LAD AND CIRCUMFLEX AND VALVE ISSUES WITH MITRAL AND TRICUSPID 01-06 - Impressions ITS Impressions Chest CTA 01/04/18 15:55 CONCLUSION: 1. No evidence of pulmonary emboli. 2. Bilateral pleural effusions and mild to moderate cardiomegaly. Venous Doppler Study 01/04/18 15:56 CONCLUSION: 1. The study is negative for bilateral lower extremity deep venous thrombosis. Carotid Doppler Study 01/06/18 15:34 CONCLUSION: 1. Right Internal Carotid Artery: Mild soft plaquing in the distal common carotid artery. No sonographic or Doppler findings of a hemodynamically significant stenosis 2. Left Internal Carotid Artery: Minimal athetotic plaquing in the proximal internal. No sonographic or Doppler findings of a hemodynamically significant stenosis. 3. Antegrade flow in both vertebral arteries. Lower Extremity Ultrasound 01/06/18 15:34 CONCLUSION: Venous mapping as above. Chest X-Ray 01/13/18 06:00 CONCLUSION: Unchanged left lower lobe infiltrate with improving right lower lobe infiltrate. Cardiomegaly. Discharge Plan - Discharge Disposition Patient Disposition: /Home Health Service - Discharge Order Discharge Orders: Discharge Order (Routine); Ordered 01/15/18 Ordered By: Sammi Ambrosio - Physicians Team Primary Care Provider: Maryellen Sutton Attending Provider: Jackie Fishman Other Providers: Christopher Barrera MD ; Jackie Fishman MD ; [facility] ; Cornelius Kent MD
== END 2018-01-15 19:40 | disposition home health service (06) ==
LOC: NEPC 15:21 → NEDA 15:21 → NEPHCDU 20:44 → HCIS 01-06 09:56 → HCPC 01-07 15:28 → HCVI 01-10 12:37 → HCPC 01-11 11:30
PROVIDERS: ADMIT Thoracic Surgery (Cardiothoracic Vascular Surgery); ATTEND Thoracic Surgery (Cardiothoracic Vascular Surgery)